=== PATIENT | male | born 1930 | race Caucasian/White ===

== ENCOUNTER 2016-09-02 13:25 | Observation (INO) | payer OTHER ==
[~2016-09-02] VITALS: Ht 182.9 cm; Wt 81.2 kg
[~2016-09-02 13:25] MED LIST: ALBUAER2 INH; AMOX875T3 PO; ASPI325T45 PO; CALC-20 PO; CMD4 PO; CRDCD180 PO; DIGO0.1267 PO; FINA5TAB PO; FISHOIL PO; LPR25 PO; MAGN400T6 PO; METR0.754 TOP; MISCCAP80 PO; MULT-506 PO; NTRSLP4 SL; NYSS5 PO; OMEP40CA PO; TIOTCAP INH
[2016-09-02 14:50] LABS: HEMATOCRIT 44.6 % (42-52); MEAN CELL VOLUME 85.3 fL (80-100); MEAN CORPUSCULAR HEMOGLOBIN 28.7 pg (25-34); MEAN CORPUSCULAR HGB CONC 33.6 g/dl (32-36); MEAN PLATELET VOLUME 10.4 fL (7.4-10.4); PLATELET COUNT 163 K/uL (130-400); RED BLOOD COUNT 5.23 M/uL (4.7-6.1); WHITE BLOOD COUNT 6.16 K/uL (4.8-10.8)
[2016-09-02 14:57] LABS: INR 3.3 (0.9-1.1); PROTHROMBIN TIME (PATIENT) 36.6 SECONDS (9.0-12.0)
[2016-09-02 15:21] LABS: CALCIUM 9.4 mg/dl (8.5-10.1); CREATININE 1.1 mg/dl (0.60-1.40); POTASSIUM 4.6 mmol/L (3.5-5.1)
--- NOTE | 2016-09-02 15:21 | DIAGNOSTIC IMAGING REPORT ---
LEFT FINGER(S) MIN 2 VIEWS ROUTINE CLINICAL HISTORY: fall 3rd can't extend DIP jt pain COMPARISON: None. DISCUSSION: Cortical fracture base distal phalanx. Potential small cortical fracture dorsal aspect distal aspect middle phalanx moderate soft tissue edema IMPRESSION: Cortical fracture base distal phalanx as well as the distal aspect middle phalanx. Alignment is anatomic The above report was generated using voice recognition software. It may contain grammatical, syntax or spelling errors. Electronically signed by: Romeo Thompson M.D. 09/02/2016 3:20 PM Dictated Date/Time: 09/02/2016 3:19 PM
[2016-09-02] MEDS ORDERED: OXYCODONE/ACETAMINOPHEN 5-325 TAB PO ONE (15:30)
--- NOTE | 2016-09-02 15:32 | DIAGNOSTIC IMAGING REPORT ---
AP PELVIS AND RIGHT HIP 3 VIEWS CLINICAL HISTORY: Right hip pain status post trauma COMPARISON STUDY: No previous studies for comparison. FINDINGS: There are advanced degenerative changes in the lower lumbar spine. There are extensive arterial calcifications. No acute fractures or dislocations are visualized. IMPRESSION: No fractures identified on conventional radiographic imaging Electronically signed by: Tonio Perez M.D. 09/02/2016 3:30 PM Dictated Date/Time: 09/02/2016 3:29 PM
--- NOTE | 2016-09-02 15:33 | DIAGNOSTIC IMAGING REPORT ---
RIGHT RIBS UNILATERAL WITH PA CHEST CLINICAL HISTORY: Right rib pain status post trauma COMPARISON STUDY: Chest x-ray dated 11/01/2015 FINDINGS: The erect chest reveals no pneumothorax. There is no focal pulmonary consolidation. There is underlying chronic interstitial change. There is a nondisplaced right ninth rib fracture. IMPRESSION: Acute nondisplaced right ninth rib fracture. No evidence of pneumothorax. Electronically signed by: Tonio Perez M.D. 09/02/2016 3:32 PM Dictated Date/Time: 09/02/2016 3:30 PM
[2016-09-02] MEDS ORDERED: WARF5TAB7 PO (15:34)
[2016-09-02] MEDS ORDERED: WARF3TAB6 PO (15:34)
[2016-09-02] MEDS ORDERED: METO25TA56 PO (15:34)
[2016-09-02] MEDS ORDERED: WARF10TA4 PO (15:34)
--- NOTE | 2016-09-02 16:40 | EMERGENCY ROOM VISIT NOTE ---
History Report prepared by Mj: Adelfo Hernandez Under the Supervision of: Dr. Howard Richards M.D. First contact with patient: 13:54 Chief Complaint: FALL Stated Complaint: FALL History of Present Illness The patient is a 85 year old male who presents to the Emergency Room via ALS with complaints of persistent right hip pain secondary to a fall occurring about an hour ago. He had been working outside for about 2 hours in the yard. While walking inside the house, he lost his balance and fell onto a chair. He states that his right leg would not move. He normally uses a cane to ambulate. He also complains of right sided rib pain and left third finger pain. He is unable to straighten his finger as normal. He has a bruise on the right hip. The patient rates a pain intensity of 5/10. He denies hitting his head. The patient denies loss of consciousness, dizziness, or any other complaints. 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 Source of History: patient Onset: about an hour ago Position: other (right hip) Symptom Intensity: 5/10 Timing: other (persistent) Associated Symptoms: No LOC Review of Systems All systems have been listed, reviewed, and are negative other than those previously mentioned. Please see Additional Medical History Sheet. 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 (13) Syncope and collapse Family History FH: cancer FHx: lung disease Heart disease Hypertension Social History Smoking Status: Former Smoker Alcohol Use: none Drug Use: none Marital Status: Housing Status: lives with family Occupation Status: retired Current/Historical Medications Scheduled Aspirin (Aspirin), 325 MG PO DAILY Calcium Carbonate-Vitamin D (Calcium 600 + D), 1 TAB PO DAILY Digoxin (Lanoxin), 0.125 MG PO DAILY Diltiazem HCl (Diltiazem HCl ER), 360 MG PO QAM Finasteride (Proscar), 5 MG PO QPM Fish Oil ([place]-3), 1,200 MG PO QPM Magnesium Oxide (Mag-Ox), 400 MG PO BID Metoprolol Tartrate (Lopressor) (Lopressor), 12.5 MG PO BID Multivitamin (Multivitamin), 1 TAB PO DAILY Omeprazole (Prilosec), 40 MG PO DAILY Probiotic Product (Probiotic), 1 CAP PO QPM Tiotropium [place] (Spiriva Handihaler), 1 CAP INH DAILY Warfarin Sod (Jantoven), 3 MG PO DIRECTED Warfarin Sod (Jantoven), 5 MG PO DIRECTED Warfarin Sod (Jantoven), 10 MG PO DIRECTED Scheduled PRN Albuterol (Ventolin), 2 PUFFS INH Q4-6HRS PRN for COPD Nitroglycerin (Nitrostat), 0.4 MG SL UD PRN for Chest Pain Allergies Coded Allergies: Clonidine (Verified Allergy, Mild, 09/02/16) Felodipine (Verified Allergy, Mild, 09/02/16) Physical Exam Vital Signs Date Time Temp Pulse Resp B/P (MAP) Pulse Ox O2 Delivery O2 Flow Rate FiO2 09/02/16 19:04 91 18 131/87 96 Room Air 09/02/16 17:22 81 18 140/77 93 Room Air 09/02/16 16:13 81 18 140/75 93 Room Air 09/02/16 15:41 85 18 134/73 94 Room Air 09/02/16 13:30 36.8 76 18 128/74 92 Room Air Physical Exam GENERAL: Patient awake, alert, oriented x 3. Patient follows commands. Patient does not appear toxic. Patient is adequately hydrated and well- nourished. SKIN: No erythema, pallor, cyanosis or rash HEENT: Normal head, no montana's sign or raccoon eyes. pupils equal, reactive to light and accommodation. Ears normal. Bilateral hearing aids. Oral cavity and posterior pharynx appear normal. Dry mucous membranes. Neck: Without adenopathy , no neck vein distention. CHEST: Tenderness over the left anterior lower ribs. LUNGS: Clear to auscultation. No wheezes, no rales, no rhonchi. HEART: Irregularly irregular rhythm. No murmurs. No gallops. No rubs ABDOMEN: Soft, nontender. PELVIS: Negative to pelvic rock. Fist sized swelling of the right greater trochanter with a small ecchymotic area overlying that swelling. Patient has full range of motion of both hips. EXTREMITIES: No signs of trauma. No pedal or pretibial edema. No calf or thigh tenderness. Brace on the right lower leg. Left third finger is unable to extend at the DIP joint. NEUROLOGIC: Cranial nerves II-XII within normal limits. No gross motor sensory function deficits. Medical Decision & Procedures ER Provider Diagnostic Interpretation: X ray results are stated below per my interpretation and the radiologist's interpretation. LEFT FINGER(S) MIN 2 VIEWS ROUTINE CLINICAL HISTORY: fall 3rd can't extend DIP jt pain COMPARISON: None. DISCUSSION: Cortical fracture base distal phalanx. Potential small cortical fracture dorsal aspect distal aspect middle phalanx moderate soft tissue edema IMPRESSION: Cortical fracture base distal phalanx as well as the distal aspect middle phalanx. Alignment is anatomic The above report was generated using voice recognition software. It may contain grammatical, syntax or spelling errors. Electronically signed by: Romeo Thompson M.D. 09/02/2016 3:20 PM Dictated Date/Time: 09/02/2016 3:19 PM AP PELVIS AND RIGHT HIP 3 VIEWS CLINICAL HISTORY: Right hip pain status post trauma COMPARISON STUDY: No previous studies for comparison. FINDINGS: There are advanced degenerative changes in the lower lumbar spine. There are extensive arterial calcifications. No acute fractures or dislocations are visualized. IMPRESSION: No fractures identified on conventional radiographic imaging Electronically signed by: Tonio Perez M.D. 09/02/2016 3:30 PM Dictated Date/Time: 09/02/2016 3:29 PM RIGHT RIBS UNILATERAL WITH PA CHEST CLINICAL HISTORY: Right rib pain status post trauma COMPARISON STUDY: Chest x-ray dated 11/01/2015 FINDINGS: The erect chest reveals no pneumothorax. There is no focal pulmonary consolidation. There is underlying chronic interstitial change. There is a nondisplaced right ninth rib fracture. IMPRESSION: Acute nondisplaced right ninth rib fracture. No evidence of pneumothorax. Electronically signed by: Tonio Perez M.D. 09/02/2016 3:32 PM Dictated Date/Time: 09/02/2016 3:30 PM Laboratory Results 09/02/16 14:10 09/02/16 14:10 Test 09/02/16 14:10 Red Blood Count 5.23 M/uL (4.7-6.1) Mean Corpuscular Volume 85.3 fL (80-100) Mean Corpuscular Hemoglobin 28.7 pg (25-34) Mean Corpuscular Hemoglobin Concent 33.6 g/dl (32-36) RDW Standard Deviation 44.4 fL (36.4-46.3) RDW Coefficient of Variation 14.3 % (11.5-14.5) Mean Platelet Volume 10.4 fL (7.4-10.4) Prothrombin Time 36.6 SECONDS (9.0-12.0) Prothromb Time International Ratio 3.3 (0.9-1.1) Anion Gap 9.0 mmol/L (3-11) Est Creatinine Clear Calc Drug Dose 51.6 ml/min Estimated GFR () 71.1 Estimated GFR (Non- 61.3 BUN/Creatinine Ratio 19.0 (10-20) Calcium Level 9.4 mg/dl (8.5-10.1) Chemistry Specimen Hemolysis Digoxin Level 0.6 ng/ml (0.8-2.0) Laboratory results as stated above per my review. Medications Administered Medications (Trade) Dose Ordered Sig/Anton Route Start Time Stop Time Status Last Admin Dose Admin Oxycodone/ Acetaminophen (Percocet 5-325mg Tab) 1 tab NOW ONCE PO 09/02/16 15:30 09/02/16 15:32 DC 09/02/16 15:40 1 TAB ECG Indication: other (Fall) Rate (beats per minute): 77 Rhythm: atrial fibrillation Findings: RBBB, left axis deviation ED Course 1354: Past medical records reviewed. The patient was evaluated in room B09. A complete history and physical examination was performed. 1530: Oxycodone/Acetaminophen 1 tab PO 1634: Upon reevaluation, the patient appeared to have improvement of his symptoms. I discussed today's findings with him. He verbalized agreement of the treatment plan. He was discharged home. 1732: I discussed the patient's case with the Emergency Room nurse. Patient is unable to ambulate. 1856: Upon reevaluation, the patient is resting comfortably.I discussed today's findings with him. He verbalized agreement of the treatment plan. [facility] for further management. Medical Decision Medication Reconciliation: I attest that I have personally reviewed the patient' s current medication list. Blood pressure Screening: Patient was found to have normal blood pressure on screening and does not require follow up. Differential diagnosis includes but is not limited to fall, near syncope, arrhythmia, metabolic disorder, multiple contusions/fractures/dislocations. The patient fell resulting in multiple contusions. He has a large swollen area over his right hip much of which looks old. There is no underlying fracture. The patient has a fracture of his left index finger both middle phalanx and distal phalanges resulting in lack of extension of the distal phalanx. Patient also has a right ninth rib fracture. The patient does not appear to have head or neck injury. Labs were also evaluated. His INR is elevated. After the full evaluation the patient was asked to ambulate but was unable to despite help. The patient normally has some difficulty due to the splint on his right lower leg and a past stroke. He now has pain in the right hip and a fracture of the left hand. He also has a ninth rib fracture. The patient is currently not eligible for [facility] but may be eligible in the near future. I've spoken with the hospitalist who will evaluate the patient for observation here. Consults Time Called: 1849 Consulting Physician: Dr. Boston of the [facility] Hospitalist Service Returned Call: [phone] [facility] the [facility] for further management. Impression Primary Impression: Right rib fracture Additional Impressions: Contusion of right hip Fracture of phalanx of left index finger Fall Ambulatory dysfunction Atrial fibrillation Scribe Attestation The scribe's documentation has been prepared under my direction and personally reviewed by me in its entirety. I confirm that the note above accurately reflects all work, treatment, procedures, and medical decision making performed by me. Departure Information Dispostion Being Evaluated By Hospitalist Referrals Mike West M.D. (PCP) Forms HOME CARE DOCUMENTATION FORM, IMPORTANT VISIT INFORMATION Patient Instructions My [facility] Problem Qualifiers
[2016-09-02] MEDS ORDERED: ALUMINUM/MAGNESIUM/SIMETH (MAALOX MAX) 30 ML UDC PO PRN (20:00)
[2016-09-02] MEDS ORDERED: ACETAMINOPHEN 325 MG TAB PO PRN (20:00)
[2016-09-02] MEDS ORDERED: ONDANSETRON INJ 2 MG/ML 2 ML VIAL IV PRN (20:00)
[2016-09-02] MEDS ORDERED: MAGNESIUM HYDROXIDE SUSP 30 ML UDC PO PRN (20:00)
[2016-09-02] MEDS ORDERED: ALBUTEROL 0.083% NEBU SOLN 3 ML VIAL INH PRN (20:00)
[2016-09-02] MEDS ORDERED: POLYETHYLENE (MIRALAX) 17 GM PACK PO PRN (20:15)
--- NOTE | 2016-09-02 20:18 | History and Physical ---
History & Physical Date & Time of Service: Sep 02, 2016 at 19:55 Chief Complaint: FALL Primary Care Physician: Mike West M.D. History of Present Illness Source: patient 85 y/o M Hx HTN, COPD, chronic AF, CVA with residual R sided weakness - was working in yard and fell on his R side sustaining a R index finger and R 9th rib fracture. He is also c/o pain in his R hip. He initially wanted to be discharged from the ER however, he was unable to ambulate and will be admitted for transfer to rehab. He denies symptoms preceding his fall such as SOB, lightheadedness, CP, palpitations. He takes Coumadin daily and has an INR of 3.3 on admission. He did not sustain head trauma and there is mo evidence of significant bruising at present. Past Medical/Surgical History Medical Problems: (1) Acquired trigger finger Status: Resolved (2) Benign hypertension Status: Chronic (3) Cataract Status: Resolved (4) Hernia repair Status: Resolved (5) Parathyroidectomy Status: Resolved (6) Pre-diabetes (7) CVA - R sided weakness (8) Pulmonary emphysema Status: Chronic (9) Replacement of total knee joint Status: Resolved 10) Chronic AF Family History FH: cancer FHx: lung disease Heart disease Hypertension Social History Smoking Status: Former Smoker Drug Use: none Marital Status: Housing status: lives with family Occupational Status: retired Immunizations History of Influenza Vaccine: Yes Influenza Vaccine Date: Jan 08, 2012 History of Tetanus Vaccine?: Yes Tetanus Immunization Date: July 13, 2001 History of Pneumococcal: Yes Pneumococcal Date: Sep 07, 2011 History of Hepatitis B Vaccine: Unknown Multi-Drug Resistant Organisms History of MDRO: No Allergies Coded Allergies: Clonidine (Verified Allergy, Mild, 09/02/16) Felodipine (Verified Allergy, Mild, 09/02/16) Home Medications Scheduled Aspirin (Aspirin), 325 MG PO DAILY Calcium Carbonate-Vitamin D (Calcium 600 + D), 1 TAB PO DAILY Digoxin (Lanoxin), 0.125 MG PO DAILY Diltiazem HCl (Diltiazem HCl ER), 360 MG PO QAM Finasteride (Proscar), 5 MG PO QPM Fish Oil ([place]-3), 1,200 MG PO QPM Magnesium Oxide (Mag-Ox), 400 MG PO BID Metoprolol Tartrate (Lopressor) (Lopressor), 12.5 MG PO BID Multivitamin (Multivitamin), 1 TAB PO DAILY Omeprazole (Prilosec), 40 MG PO DAILY Probiotic Product (Probiotic), 1 CAP PO QPM Tiotropium Romeo (Spiriva Handihaler), 1 CAP INH DAILY Warfarin Sod (Jantoven), 3 MG PO DIRECTED Warfarin Sod (Jantoven), 5 MG PO DIRECTED Warfarin Sod (Jantoven), 10 MG PO DIRECTED Scheduled PRN Albuterol (Ventolin), 2 PUFFS INH Q4-6HRS PRN for COPD Nitroglycerin (Nitrostat), 0.4 MG SL UD PRN for Chest Pain Review of Systems Constitutional: No fever, No chills, No sweats Eyes: No worsening of vision ENT: No hearing loss, No unusual epistaxis, No nasal symptoms Respiratory: No cough, No sputum, No wheezing Cardiovascular: No chest pain, No PND Abdomen: No pain, No nausea, No vomiting Musculoskeletal: No joint pain Genitourinary - Male: No hematuria, No dysuria Neurologic: + weakness (chronic R side), + balance problems, No memory loss, No paralysis Psychiatric: No depression symptoms Endocrine: No fatigue Hematologic / Lymphatic: No abnormal bleeding/bruising Integumentary: No rash Allergic / Immunologic: No environmental allergies Physical Exam Vital Signs Date Time Temp Pulse Resp B/P (MAP) Pulse Ox O2 Delivery O2 Flow Rate FiO2 09/02/16 19:04 91 18 131/87 96 Room Air 09/02/16 17:22 81 18 140/77 93 Room Air 09/02/16 16:13 81 18 140/75 93 Room Air 09/02/16 15:41 85 18 134/73 94 Room Air 09/02/16 13:30 36.8 76 18 128/74 92 Room Air General Appearance: WD/WN, no apparent distress, + pertinent finding (Thi elderly male - has some chronic difficulty initiating speech) Head: normocephalic Eyes: normal inspection ENT: normal ENT inspection, pharynx normal Neck: supple, no adenopathy, thyroid normal, no JVD Respiratory/Chest: chest non-tender, lungs clear Cardiovascular: no gallop, no JVD, no murmur, + irregularly irregular Abdomen/GI: normal bowel sounds, non tender, soft Back: normal inspection, no CVA tenderness, no muscle spasm Extremities/Musculoskelatal: + pedal edema (Mild ) Neurologic/Psych: + pertinent finding (CHronic R sided weakness - AAO x 3 - no additional/new deficits noted) Skin: normal color, warm/dry, no rash Diagnostics Laboratory Results Results Past 24 Hours Test 09/02/16 14:10 Range/Units White Blood Count 6.16 4.8-10.8 K/uL Red Blood Count 5.23 4.7-6.1 M/uL Hemoglobin 15.0 14.0-18.0 g/dL Hematocrit 44.6 42-52 % Mean Corpuscular Volume 85.3 80-100 fL Mean Corpuscular Hemoglobin 28.7 25-34 pg Mean Corpuscular Hemoglobin Concent 33.6 32-36 g/dl RDW Standard Deviation 44.4 36.4-46.3 fL RDW Coefficient of Variation 14.3 11.5-14.5 % Platelet Count 163 130-400 K/uL Mean Platelet Volume 10.4 7.4-10.4 fL Prothrombin Time 36.6 9.0-12.0 SECONDS Prothromb Time International Ratio 3.3 0.9-1.1 Sodium Level 140 136-145 mmol/L Potassium Level 4.6 3.5-5.1 mmol/L Chloride Level 104 98-107 mmol/L Carbon Dioxide Level 27 21-32 mmol/L Anion Gap 9.0 3-11 mmol/L Blood Urea Nitrogen 21 7-18 mg/dl Creatinine 1.10 0.60-1.40 mg/dl Est Creatinine Clear Calc Drug Dose 51.6 ml/min Estimated GFR () 71.1 Estimated GFR (Non- 61.3 BUN/Creatinine Ratio 19.0 10-20 Random Glucose 139 70-99 mg/dl Calcium Level 9.4 8.5-10.1 mg/dl Chemistry Specimen Hemolysis Digoxin Level 0.6 0.8-2.0 ng/ml Diagnostic Radiology CXR: Acute nondisplaced right ninth rib fracture. No evidence of pneumothorax. Finger XR: Cortical fracture base distal phalanx as well as the distal aspect middle phalanx. Alignment is anatomic. Pelvic XR: Lumbar degenerative disease - no fracture is visualized EKG AF, R bundle, L axis Impression Assessment and Plan 85 y/o M Hx HTN, COPD, chronic AF, CVA with residual R sided weakness - was working in yard and fell on his R side sustaining a R index finger and R 9th rib fracture. He is also c/o pain in his R hip. He initially wanted to be discharged from the ER however, he was unable to ambulate and will be admitted for transfer to rehab. He denies symptoms preceding his fall such as SOB, lightheadedness, CP, palpitations. He takes Coumadin daily and has an INR of 3.3 on admission. 1) Fall - ambulatory dysfunction - will be evaluated by PT/OT for transfer to rehab. If he continues to have hip pain and cannot weight bear onthe right side , a CT would be merited to evaluate for an occult fracture. 2) AF - INR is therapeutic at 3.3 - no evidence of hemorrhage at present - cont rate control with Toprol - resume Coumadin on DC. 3) RIb and index finger fractures - PRN analgesics provided. 4) COPD - no evidence of exacerbation - cont inhalers and PRN Albuterol nebs. Full code - Heparin prophylaxis Total time for this admit including review of labs, meds, EKG, imaging - discussion with pt and ER attending - 33 min Level of Care Med/Surg Resuscitation Status FULL RESUSCITATION VTE Prophylaxis VTE Risk Assessment Done? Y/N: Yes Risk Level: Moderate Given or contraindicated: Warfarin (Coumadin)
[2016-09-02] MEDS ORDERED: IV FLUIDS COMPLETED PRN (20:45)
[2016-09-02 20:58] VITALS: BP 152/76; PULSE 90; TEMP 36.5; O2SAT 94; Ht 182.9 cm; Wt 81.2 kg
[2016-09-02] MEDS ORDERED: MAGNESIUM SULFATE 1GM / D5W 1 GM in PREMIXED IN D5W 100 ML IV ONE (21:00)
[2016-09-02] MEDS ORDERED: NON-FORMULARY MEDICATION (Probiotic Product (Probiotic) 1 CAP) PO SCH (21:00)
[2016-09-02] MEDS: POTASSIUM CHLR 10 MEQ / WTR 10 MEQ in PREMIXED WATER 100 ML IV SCH ×2 (21:44→23:41)
[2016-09-02] MEDS: OMEGA-3 (PURIFIED FISH OIL) 1 GM CAP PO SCH (21:46)
[2016-09-02] MEDS: MAGNESIUM OXIDE 400 MG TAB PO SCH (21:46)
[2016-09-02] MEDS: FINASTERIDE 5 MG TAB PO SCH (21:47)
[2016-09-02] MEDS ORDERED: OXYCODONE HCL IR 5 MG TAB (IMMEDIATE RELEASE) ONE (21:54)
[2016-09-03 00:04] VITALS: BP 134/80; PULSE 87; TEMP 36.5; O2SAT 93
[2016-09-03] MEDS: OXYCODONE HCL IR 5 MG TAB (IMMEDIATE RELEASE) PO PRN ×3 (02:34→23:51)
[2016-09-03 05:56] LABS: INR 2.3 (0.9-1.1)
[2016-09-03] MEDS: TIOTROPIUM BROMIDE 5 PUFF/90 MCG INH INH SCH (08:12)
[2016-09-03] MEDS: CALCIUM 600MG + VIT D 400 IU TAB PO SCH (08:12)
[2016-09-03] MEDS: ASPIRIN 325 MG ECTAB PO SCH (08:13)
[2016-09-03] MEDS: PANTOprazole SOD 40 MG TAB PO SCH (08:13)
[2016-09-03] MEDS: MAGNESIUM OXIDE 400 MG TAB PO SCH ×2 (08:13→20:35)
[2016-09-03] MEDS: DILTIAZEM HCL 180 MG CAPCR PO SCH (08:13)
[2016-09-03] MEDS: MULTIVITAMIN TAB PO SCH (08:13)
[2016-09-03] MEDS: ACETAMINOPHEN 500 MG TAB PO SCH ×3 (09:40→22:31)
[2016-09-03] MEDS: LIDODERM (LIDOCAINE) PATCH 5% TD SCH (09:41)
--- NOTE | 2016-09-03 12:27 | DIAGNOSTIC IMAGING REPORT ---
RIGHT HIP-LOWER EXTREMITY WITHOUT CT DOSE: 243.29 mGy.cm HISTORY: Pain eval for occult fracture Right TECHNIQUE: Multiaxial CT images of the right hip were performed and reformatted in the sagittal and coronal plane without the use of contrast. COMPARISON: None. FINDINGS: Moderate generalized degenerative change of the right hip joint space. Slight acetabular protrusion. No evidence for acute fracture or dislocation. Considerable soft tissue swelling lateral to the right hip and other upper thigh. This appears to relate to a soft tissue contusion. Minimal calcific trochanteric sinuses. IMPRESSION: 1. No evidence for fracture. 2. Moderate degenerative change with mild calcific trochanteric bursitis. 3. Considerable soft tissue edema lateral to the right hip and proximal femur suggestive of a soft tissue contusion The above report was generated using voice recognition software. It may contain grammatical, syntax or spelling errors. Electronically signed by: Romeo Thompson M.D. 09/03/2016 12:26 PM Dictated Date/Time: 09/03/2016 12:22 PM
[2016-09-03 15:34] VITALS: BP 145/74; PULSE 91; TEMP 36.4; O2SAT 92
[2016-09-03 16:00] VITALS: O2SAT 92
[2016-09-03] MEDS: DIGOXIN 0.125 MG TAB PO SCH (16:42)
[2016-09-03] MEDS: OMEGA-3 (PURIFIED FISH OIL) 1 GM CAP PO SCH (20:37)
[2016-09-03] MEDS: FINASTERIDE 5 MG TAB PO SCH (20:37)
--- NOTE | 2016-09-04 00:10 | Progress Note ---
Subjective Date of Service: Sep 03, 2016. Subjective Pt evaluation today including: conversation w/ patient, conversation w/ family ( by phone), physical exam, chart review, lab review, review of studies (x- rays, CT right hip), review of inpatient medication list Pain: right chest and right hip (lateral aspect) PO Intake: normal Voiding: no voiding problems pt's main complaint is that of right hip pain he tried working with PT this am and it was very painful leading to significant limitation in his ability to move denies dyspnea denies chest pain he cannot recall his coumadin regimen at home Problem List Medical Problems: (1) Altered mental status Status: Acute (2) Altered mental status Status: Acute (3) Ambulatory dysfunction Status: Acute (4) Atrial fibrillation Status: Acute (5) Contusion of right hip Status: Acute (6) COPD exacerbation Status: Acute (7) Fall Status: Acute (8) Fall Status: Acute (9) Fracture of phalanx of left index finger Status: Acute (10) Heart failure Status: Acute (11) Hyponatremia Status: Acute (12) Hyponatremia Status: Acute (13) Hypoxemia Status: Acute (14) Hypoxia Status: Acute (15) Pneumonia Status: Acute (16) Right rib fracture Status: Acute Review of Systems Respiratory: No cough, No sputum, No wheezing, No shortness of breath Cardiac: No chest pain, No orthopnea Abdomen: No pain Objective Vital Signs Date Time Temp Pulse Resp B/P (MAP) Pulse Ox O2 Delivery O2 Flow Rate FiO2 09/03/16 16:42 87 09/03/16 16:00 92 Room Air 09/03/16 15:34 36.4 91 19 145/74 (97) 92 Room Air 09/03/16 09:21 Room Air 09/03/16 08:00 Room Air 09/03/16 00:04 36.5 87 18 134/80 (98) 93 Room Air 09/03/16 00:00 Room Air Physical Exam General Appearance: no apparent distress ENT: pharynx normal Neck: no JVD Respiratory/Chest: no respiratory distress, no accessory muscle use, + wheezing (mild, end-exp b/l) Cardiovascular: no gallop, no murmur, + irregularly irregular Abdomen: normal bowel sounds, non tender, soft, no organomegaly Extremities: no pedal edema, + swelling (over lateral aspect of upper thigh/ hip - hematoma; very tender over trochanteric bursal area; with passive flexion and internal/external rotation of hip he has minimal pain), + pertinent finding (left 3rd finger in splint) Laboratory Results Last 24 Hours Test 09/03/16 05:22 Prothrombin Time 25.0 SECONDS Prothromb Time International Ratio 2.3 Assessment and Plan 85yo male: 1. right hip pain s/p fall - has lateral thigh hematoma due to his fall and his coumadin use. Due to the severity of his pain CT hip was obtained - this did NOT show occult fracture. Treat hematoma with tylenol TID, ice, pain meds. PT, OT. May have element of trochanteric bursitis as well. 2. left 3rd finger fracture - splint, nonoperative Rx. 3. right sided rib fracture - add lidoderm patches. Pain control. 4. a. fib - rates controlled; hold coumadin today due to hematoma. If hematoma is stable tomorrow then resume coumadin. INR in am. 5. COPD - stable, not in exacerbation. 6. DVT proph - coumadin. 7. dispo - [facility] if insurance approves. 8. HTN - controlled. 9. h/o stroke with resulting right-sided weakness - coumadin for secondary stroke prevention. baseline deficits on right likely led to his fall. updated by phone Continued [facility] stay due to: inadequate oral pain control, ambulation difficulties Discharge planning: rehab hospital
[2016-09-04 00:12] VITALS: BP 133/71; PULSE 90; TEMP 37.1; O2SAT 92
[2016-09-04] MEDS: OXYCODONE HCL IR 5 MG TAB (IMMEDIATE RELEASE) PO PRN (03:32)
[2016-09-04 06:19] LABS: HEMATOCRIT 39.9 % (42-52); MEAN CELL VOLUME 84.9 fL (80-100); MEAN CORPUSCULAR HEMOGLOBIN 27.7 pg (25-34); MEAN CORPUSCULAR HGB CONC 32.6 g/dl (32-36); MEAN PLATELET VOLUME 10.4 fL (7.4-10.4); PLATELET COUNT 159 K/uL (130-400); WHITE BLOOD COUNT 14.83 K/uL (4.8-10.8)
[2016-09-04 06:43] LABS: INR 1.8 (0.9-1.1); PROTHROMBIN TIME (PATIENT) 19.2 SECONDS (9.0-12.0)
[2016-09-04] MEDS: MAGNESIUM OXIDE 400 MG TAB PO SCH ×2 (07:50→21:12)
[2016-09-04] MEDS: ACETAMINOPHEN 500 MG TAB PO SCH ×3 (07:50→22:33)
[2016-09-04] MEDS: CALCIUM 600MG + VIT D 400 IU TAB PO SCH (07:51)
[2016-09-04] MEDS: MULTIVITAMIN TAB PO SCH (07:51)
[2016-09-04] MEDS: DILTIAZEM HCL 180 MG CAPCR PO SCH (07:51)
[2016-09-04] MEDS: ASPIRIN 325 MG ECTAB PO SCH (07:52)
[2016-09-04] MEDS: PANTOprazole SOD 40 MG TAB PO SCH (07:52)
[2016-09-04] MEDS: TIOTROPIUM BROMIDE 5 PUFF/90 MCG INH INH SCH (07:52)
[2016-09-04] MEDS: LIDODERM (LIDOCAINE) PATCH 5% TD SCH (07:56)
[2016-09-04 07:57] VITALS: BP 137/70; PULSE 101; TEMP 37.1; O2SAT 91
[2016-09-04] MEDS ORDERED: WARFARIN SOD 10 MG TAB PO ONE (10:30)
[2016-09-04 14:01] VITALS: BP 135/57; PULSE 95; O2SAT 90
[2016-09-04] MEDS: DIGOXIN 0.125 MG TAB PO SCH (15:35)
[2016-09-04 15:57] VITALS: BP 120/60; PULSE 98; TEMP 36.4; O2SAT 91
[2016-09-04] MEDS: TRAMADOL HCL 50 MG TAB PO PRN (18:26)
[2016-09-04 18:30] LABS: MANUAL MICROSCOPIC REQUIRED? NO; REVIEW REQ? NO; URINE APPEARANCE CLOUDY (CLEAR); URINE BILIRUBIN NEG (NEG); URINE COLOR ORANGE; URINE NITRITE POS (NEG); URINE SPECIFIC GRAVITY 1.031 (1.000-1.030); UROBILINOGEN NEG (NEG)
[2016-09-04] MEDS: OMEGA-3 (PURIFIED FISH OIL) 1 GM CAP PO SCH (21:11)
[2016-09-04] MEDS: FINASTERIDE 5 MG TAB PO SCH (21:12)
--- NOTE | 2016-09-04 21:12 | Progress Note ---
Subjective Date of Service: Sep 04, 2016. Subjective Pt evaluation today including: conversation w/ patient, physical exam, chart review, lab review, review of inpatient medication list Pain: right hip - improved; right ribs - improved PO Intake: fair Voiding: no voiding problems tele with michael chau, rates about 105 or less he overall feels better today apparently had had some confusion overnight but this is resolved pain in multiple locations overall improved anxious to get to [facility] Problem List Medical Problems: (1) Altered mental status Status: Acute (2) Altered mental status Status: Acute (3) Ambulatory dysfunction Status: Acute (4) Atrial fibrillation Status: Acute (5) Contusion of right hip Status: Acute (6) COPD exacerbation Status: Acute (7) Fall Status: Acute (8) Fall Status: Acute (9) Fracture of phalanx of left index finger Status: Acute (10) Heart failure Status: Acute (11) Hyponatremia Status: Acute (12) Hyponatremia Status: Acute (13) Hypoxemia Status: Acute (14) Hypoxia Status: Acute (15) Pneumonia Status: Acute (16) Right rib fracture Status: Acute Review of Systems Constitutional: No fever, No chills Respiratory: + cough, No sputum, No wheezing, No shortness of breath, No dyspnea on exertion Cardiac: No chest pain, No orthopnea Abdomen: No pain Objective Vital Signs Date Time Temp Pulse Resp B/P (MAP) Pulse Ox O2 Delivery O2 Flow Rate FiO2 09/04/16 16:00 Room Air 09/04/16 15:57 36.4 98 18 120/60 (80) 91 Room Air 09/04/16 15:35 89 09/04/16 14:01 95 90 09/04/16 08:00 Room Air 09/04/16 07:57 37.1 101 20 137/70 (92) 91 Room Air 09/04/16 00:12 37.1 90 18 133/71 (91) 92 Room Air 09/04/16 00:00 Room Air Physical Exam General Appearance: no apparent distress ENT: pharynx normal Neck: no JVD Respiratory/Chest: no respiratory distress, no accessory muscle use, + wheezing (minimal) Cardiovascular: no gallop, no murmur, + irregularly irregular Abdomen: normal bowel sounds, non tender, soft, no organomegaly Extremities: no pedal edema, + pertinent finding (I am able to passively place the right hip through ROM today with more ease and less pain. ) Neurologic/Psychiatric: alert, oriented x 3, + motor weakness (right leg - baseline) Skin: + pertinent finding (ecchymoses over lateral right hip; mild tenderness over same region but improved) Comments: left 3rd finger in splint Laboratory Results Last 24 Hours Test 09/04/16 06:02 09/04/16 18:15 White Blood Count 14.83 K/uL Red Blood Count 4.70 M/uL Hemoglobin 13.0 g/dL Hematocrit 39.9 % Mean Corpuscular Volume 84.9 fL Mean Corpuscular Hemoglobin 27.7 pg Mean Corpuscular Hemoglobin Concent 32.6 g/dl RDW Standard Deviation 44.7 fL RDW Coefficient of Variation 14.4 % Platelet Count 159 K/uL Mean Platelet Volume 10.4 fL Prothrombin Time 19.2 SECONDS Prothromb Time International Ratio 1.8 Urine Color ORANGE Urine Appearance CLOUDY Urine pH 5.0 Urine Specific [place] 1.031 Urine Protein NEG Urine Glucose (UA) NEG Urine Ketones TRACE Urine Occult Blood NEG Urine Nitrite POS Urine Bilirubin NEG Urine Urobilinogen NEG Urine Leukocyte Esterase TRACE Urine WBC (Auto) 1-5 /hpf Urine RBC (Auto) 0-4 /hpf Urine Hyaline Casts (Auto) 5-10 /lpf Urine Epithelial Cells (Auto) 10-20 /lpf Urine Bacteria (Auto) NEG Assessment and Plan 85yo male: 1. right hip pain s/p fall - no fractures on x-ray or CT. small hematoma on outer aspect of the hip is improved today. resume coumadin. may have small amount of trochanteric bursitis as well. cont ICE, lidoderm, tramadol prn. 2. left 3rd finger fracture - splint, nonoperative Rx. 3. right sided rib fracture - lidoderm patches. Pain control. 4. a. fib - rates controlled; resume coumadin today with 10mg po x 1. then resume previous outpatient regimen which was - * 8mg ///Friday * 10mg //Friday * daily INR 5. COPD - stable, not in exacerbation. Surprised he is not on daily maintenance medication. Add advair 250/50 1 puff BID starting in AM. Albuterol prn. 6. DVT proph - coumadin. 7. HTN - controlled. 8. h/o stroke with resulting right-sided weakness - coumadin for secondary stroke prevention. baseline deficits on right likely led to his fall. 9. leukocytosis - cause? check u/a and urine cx, r/o UTI. cxr yesterday without infiltrates. repeat CBC in am. 10. constipation - miralax BID. [facility] hopefully can [facility]/c tomorrow updated by phone 09/03/16 Continued [facility] stay due to: inadequate oral pain control, ambulation difficulties Discharge planning: rehab hospital
[2016-09-04] MEDS: POLYETHYLENE (MIRALAX) 17 GM PACK PO SCH (22:30)
[2016-09-05] VITALS: O2SAT 90
[2016-09-05 00:03] VITALS: BP 118/73; PULSE 87; TEMP 36.5; O2SAT 92
[2016-09-05 05:44] LABS: BASO % 0.1 %; BASO ABS # 0.01 K/uL (0-0.2); COMPLETE YES; EOS % 1.1 %; HEMATOCRIT 33.7 % (42-52); IG% 0.2 %; LYMPH % 18.9 %; LYMPH ABS # 1.67 K/uL (1.2-3.4); MEAN CELL VOLUME 84.3 fL (80-100); MEAN CORPUSCULAR HEMOGLOBIN 28.8 pg (25-34); MEAN CORPUSCULAR HGB CONC 34.1 g/dl (32-36); MEAN PLATELET VOLUME 10.4 fL (7.4-10.4); MONO % 9.9 %; NEUT % 69.8 %; PLATELET COUNT 150 K/uL (130-400); WHITE BLOOD COUNT 8.85 K/uL (4.8-10.8)
[2016-09-05] MEDS: ACETAMINOPHEN 500 MG TAB PO SCH ×3 (05:49→22:00)
[2016-09-05 05:52] LABS: INR 1.4 (0.9-1.1); PROTHROMBIN TIME (PATIENT) 15.3 SECONDS (9.0-12.0)
[2016-09-05 06:17] LABS: BUN/CREATININE RATIO 25.1 (10-20); CALCIUM 8.7 mg/dl (8.5-10.1); CREATININE 0.76 mg/dl (0.60-1.40); MAGNESIUM 1.8 mg/dl (1.8-2.4); POTASSIUM 3.9 mmol/L (3.5-5.1)
[2016-09-05] MEDS: POLYETHYLENE (MIRALAX) 17 GM PACK PO SCH ×2 (07:54→21:44)
[2016-09-05] MEDS: FLUTICASONE/SALMETEROL 250/50 (ADVAIR) 14 PUFF/1 INHALER INH SCH ×2 (07:55→21:43)
[2016-09-05] MEDS: TIOTROPIUM BROMIDE 5 PUFF/90 MCG INH INH SCH (07:56)
[2016-09-05] MEDS: LIDODERM (LIDOCAINE) PATCH 5% TD SCH (07:56)
[2016-09-05] MEDS: MAGNESIUM OXIDE 400 MG TAB PO SCH ×2 (07:56→21:44)
[2016-09-05] MEDS: DILTIAZEM HCL 180 MG CAPCR PO SCH (07:56)
[2016-09-05] MEDS: CALCIUM 600MG + VIT D 400 IU TAB PO SCH (07:56)
[2016-09-05] MEDS: PANTOprazole SOD 40 MG TAB PO SCH (07:57)
[2016-09-05] MEDS: MULTIVITAMIN TAB PO SCH (07:57)
[2016-09-05] MEDS: ASPIRIN 325 MG ECTAB PO SCH (07:57)
[2016-09-05 08:00] VITALS: BP 132/64; PULSE 86; TEMP 36.7; O2SAT 90
[2016-09-05 15:09] VITALS: BP 111/67; PULSE 72; TEMP 36.5; O2SAT 92
[2016-09-05] MEDS ORDERED: WARFARIN SOD 5 MG TAB PO SCH (16:00)
[2016-09-05 16:05] VITALS: PULSE 80; O2SAT 92
[2016-09-05] MEDS: DIGOXIN 0.125 MG TAB PO SCH (16:06)
--- NOTE | 2016-09-05 16:54 | Progress Note ---
Subjective Date of Service: Sep 05, 2016. Subjective this pt is near his baseline awaiting placement denied rehab placement and will move to subacute. is at bedside and updated Problem List Medical Problems: (1) Altered mental status Status: Acute (2) Altered mental status Status: Acute (3) Ambulatory dysfunction Status: Acute (4) Atrial fibrillation Status: Acute (5) Contusion of right hip Status: Acute (6) COPD exacerbation Status: Acute (7) Fall Status: Acute (8) Fall Status: Acute (9) Fracture of phalanx of left index finger Status: Acute (10) Heart failure Status: Acute (11) Hyponatremia Status: Acute (12) Hyponatremia Status: Acute (13) Hypoxemia Status: Acute (14) Hypoxia Status: Acute (15) Pneumonia Status: Acute (16) Right rib fracture Status: Acute Review of Systems Constitutional: No fever, No chills, No weakness Respiratory: No cough, No wheezing, No shortness of breath Cardiac: No chest pain, No orthopnea, No edema Abdomen: No pain, No nausea, No vomiting, No diarrhea Musculoskeletal: + joint pain, + muscle pain Male : No dysuria, No urinary frequency Neurologic: + paralysis, + weakness, + balance problems, No memory loss Psychiatric: No depression symptoms, No anxiety Objective Vital Signs Date Time Temp Pulse Resp B/P (MAP) Pulse Ox O2 Delivery O2 Flow Rate FiO2 09/05/16 08:00 36.7 86 18 132/64 (86) 90 Room Air 09/05/16 00:03 36.5 87 18 118/73 (88) 92 Room Air 09/05/16 00:00 90 Room Air 09/04/16 16:00 Room Air 09/04/16 15:57 36.4 98 18 120/60 (80) 91 Room Air 09/04/16 15:35 89 09/04/16 14:01 95 90 Physical Exam General Appearance: WD/WN, + mild distress Eyes: PERRL, EOMI Neck: supple, no JVD Respiratory/Chest: chest non-tender, lungs clear Cardiovascular: regular rate, rhythm, + systolic murmur Abdomen: normal bowel sounds, soft Extremities: no pedal edema, no calf tenderness, + pertinent finding (right foot drop) Neurologic/Psychiatric: alert, oriented x 3 Laboratory Results Last 24 Hours Test 09/04/16 18:15 09/05/16 05:18 Urine Color ORANGE Urine Appearance CLOUDY Urine pH 5.0 Urine Specific [place] 1.031 Urine Protein NEG Urine Glucose (UA) NEG Urine Ketones TRACE Urine Occult Blood NEG Urine Nitrite POS Urine Bilirubin NEG Urine Urobilinogen NEG Urine Leukocyte Esterase TRACE Urine WBC (Auto) 1-5 /hpf Urine RBC (Auto) 0-4 /hpf Urine Hyaline Casts (Auto) 5-10 /lpf Urine Epithelial Cells (Auto) 10-20 /lpf Urine Bacteria (Auto) NEG White Blood Count 8.85 K/uL Red Blood Count 4.00 M/uL Hemoglobin 11.5 g/dL Hematocrit 33.7 % Mean Corpuscular Volume 84.3 fL Mean Corpuscular Hemoglobin 28.8 pg Mean Corpuscular Hemoglobin Concent 34.1 g/dl Platelet Count 150 K/uL Mean Platelet Volume 10.4 fL Neutrophils (%) (Auto) 69.8 % Lymphocytes (%) (Auto) 18.9 % Monocytes (%) (Auto) 9.9 % Eosinophils (%) (Auto) 1.1 % Basophils (%) (Auto) 0.1 % Neutrophils # (Auto) 6.17 K/uL Lymphocytes # (Auto) 1.67 K/uL Monocytes # (Auto) 0.88 K/uL Eosinophils # (Auto) 0.10 K/uL Basophils # (Auto) 0.01 K/uL RDW Standard Deviation 44.2 fL RDW Coefficient of Variation 14.3 % Immature Granulocyte % (Auto) 0.2 % Immature Granulocyte # (Auto) 0.02 K/uL Prothrombin Time 15.3 SECONDS Prothromb Time International Ratio 1.4 Sodium Level 137 mmol/L Potassium Level 3.9 mmol/L Chloride Level 101 mmol/L Carbon Dioxide Level 29 mmol/L Anion Gap 7.0 mmol/L Blood Urea Nitrogen 19 mg/dl Creatinine 0.76 mg/dl Est Creatinine Clear Calc Drug Dose 79.4 ml/min Estimated GFR () 97.1 Estimated GFR (Non- 83.8 BUN/Creatinine Ratio 25.1 Random Glucose 147 mg/dl Calcium Level 8.7 mg/dl Magnesium Level 1.8 mg/dl Assessment and Plan 85yo male fall with hip pain, finger laceration and stable afib/copd right hip pain s/p fall - no fractures on x-ray or CT. small hematoma on outer aspect of the hip resume coumadin. cont ICE, lidoderm, tramadol prn. left 3rd finger fracture - splint, nonoperative Rx. right sided rib fracture - lidoderm patches. Pain control. a. fib - rates controlled; resume coumadin 09/04 with usual dose 09/05 * 8mg ///Friday * 10mg //Friday * daily INR COPD - stable, advair 250/50 1 puff BID starting in AM. Albuterol prn. DVT proph - coumadin. h/o stroke with resulting right-sided weakness - coumadin for secondary stroke prevention. baseline deficits on right likely led to his fall. constipation - miralax BID. awaiting insurance auth for [facility] - updated by phone 09/03/16 Continued [facility] stay due to: inadequate oral pain control, ambulation difficulties Discharge planning: rehab hospital
[2016-09-05] MEDS: FINASTERIDE 5 MG TAB PO SCH (21:44)
[2016-09-05] MEDS: OMEGA-3 (PURIFIED FISH OIL) 1 GM CAP PO SCH (21:45)
[2016-09-05] MEDS: TRAMADOL HCL 50 MG TAB PO PRN (21:54)
[2016-09-05 23:08] VITALS: BP 124/70; PULSE 82; TEMP 36.7; O2SAT 90
[2016-09-06] MEDS ORDERED: TRAMADOL HCL 50 MG TAB PO STA (02:44)
[2016-09-06] MEDS: ACETAMINOPHEN 500 MG TAB PO SCH ×2 (06:08→14:15)
[2016-09-06 06:59] VITALS: BP 114/62; PULSE 90; TEMP 36.7; O2SAT 91
[2016-09-06] MEDS: ASPIRIN 325 MG ECTAB PO SCH (07:56)
[2016-09-06] MEDS: TIOTROPIUM BROMIDE 5 PUFF/90 MCG INH INH SCH (07:56)
[2016-09-06] MEDS: FLUTICASONE/SALMETEROL 250/50 (ADVAIR) 14 PUFF/1 INHALER INH SCH (07:56)
[2016-09-06] MEDS: PANTOprazole SOD 40 MG TAB PO SCH (07:56)
[2016-09-06] MEDS: MAGNESIUM OXIDE 400 MG TAB PO SCH (07:57)
[2016-09-06] MEDS: POLYETHYLENE (MIRALAX) 17 GM PACK PO SCH (07:57)
[2016-09-06] MEDS: MULTIVITAMIN TAB PO SCH (07:57)
[2016-09-06] MEDS: CALCIUM 600MG + VIT D 400 IU TAB PO SCH (07:57)
[2016-09-06] MEDS: LIDODERM (LIDOCAINE) PATCH 5% TD SCH (07:57)
[2016-09-06] MEDS: DILTIAZEM HCL 180 MG CAPCR PO SCH (07:58)
[2016-09-06 10:39] LABS: INR 1.6 (0.9-1.1); PROTHROMBIN TIME (PATIENT) 17.2 SECONDS (9.0-12.0)
[2016-09-06] MEDS ORDERED: ULT50X PO (13:44)
[2016-09-06] MEDS ORDERED: MRLP17 PO (13:44)
[2016-09-06] MEDS ORDERED: LDDP5 TD (13:44)
[2016-09-06] MEDS ORDERED: ADVIN25050 INH (13:44)
[2016-09-06] MEDS ORDERED: ACET-24 PO (13:44)
--- NOTE | 2016-09-06 13:48 | Discharge Instructions ---
Discharge Instructions Date of Service Sep 06, 2016. Admission Reason for Admission: Ambulatory Dysfunction, Right Rib Fracture Discharge Discharge Diagnosis / Problem: right rib fracture, left finger fracture Discharge Goals Goal(s): Diagnostic testing, Therapeutic intervention Activity Recommendations Activity Level: Assistance Required Therapies: Physical Therapy, Occupational Therapy . Additional Information Patient informed of condition: Yes Advance Directives: Yes DNR: No Level of Care: Skilled Communicable Disease: No Prognosis: Stable [place] Catheter: No Current Hospital Diet Patient's current hospital diet: AHA Diet (Heart Healthy) Discharge Diet Recommended Diet: Regular Diet Pending Studies Studies pending at discharge: no Laboratory Results 85yo male fall with hip pain, finger laceration and stable afib/copd right hip pain s/p fall - no hip or pelvis fractures on x-ray or CT. small hematoma on outer aspect of the hip resume coumadin. scheduled tylenol , lidoderm, tramadol prn. left 3rd finger fracture - splint, nonoperative Rx. right sided rib fracture - lidoderm patches. Pain control. a. fib - rates controlled; resume coumadin 09/04 with usual dose 09/05 * 8mg ///Friday * 10mg //Friday * daily INR slightly low on transition COPD - stable, advair 250/50 1 puff BID Albuterol prn. DVT proph - coumadin. h/o stroke with resulting right-sided weakness - coumadin asa for secondary stroke prevention. baseline deficits on right likely led to his fall. constipation - miralax BID. Medical Emergencies . Who to Call and When: Medical Emergencies: If at any time you feel your situation is an emergency, please call 911 immediately. . Non-Emergent Contact Non-Emergency issues call your: Primary Care Provider Call Non-Emergent contact if: temperature is above 101, your pain is unusual for you . . "Provider Documentation" section prepared by Juan Ramon Asher. . Core Measure Problem Core Measures: None
--- NOTE | 2016-09-06 13:49 | Discharge Summary ---
Discharge Summary Date of Service Sep 06, 2016. Discharge Summary Admission Date: Sep 02, 2016 at 19:54 Discharge Date: Sep 06, 2016 Discharge Disposition: long term facility Principal Diagnosis: fall with rib fracture and left 4th finger fracture, hip contusion Immunizations: Have You Had Influenza Vaccine: Yes Influenza Vaccine Date: Jan 08, 2012 History of Tetanus Vaccine?: Yes Tetanus Immunization Date: July 13, 2001 History of Pneumococcal: Yes Pneumococcal Date: Sep 07, 2011 History of Hepatitis B Vaccine: Unknown Medication Reconciliation New Medications: Acetaminophen (Sb Non-Aspirin Extra Stre) 500 Mg Tab 1000 MG PO Q8, #90 TAB Fluticasone Prop/Salmeterol (Advair Diskus 250-50 Mcg/Dose) 14 Puff/1 Inhaler Aerp 1 PUFF INH BID, #1 INHALER Lidocaine (Lidocaine) 1 Patch Tdsy 3 PATCH TD QAM, #20 PATCH Polyethylene (Miralax) 17 Gm Pow 17 GM PO BID, #60 DOSE Tramadol HCl (Tramadol HCl) 50 Mg Tab 50 MG PO Q6H PRN for Pain, #60 TAB Continued Medications: Albuterol (Ventolin) Inh 2 PUFFS INH Q4-6HRS PRN for COPD, 0 Refills Aspirin (Aspirin) 325 Mg Tab 325 MG PO DAILY Calcium Carbonate-Vitamin D (Calcium 600 + D) 1 Tab Tab 1 TAB PO DAILY Digoxin (Lanoxin) 0.125 Mg Tab 0.125 MG PO DAILY, TAB Diltiazem HCl (Diltiazem HCl ER) 180 Mg Capcr 360 MG PO QAM for 30 Days Finasteride (Proscar) 5 Mg Tab 5 MG PO QPM, 0 Refills Fish Oil ([place]-3) Oil 1200 MG PO QPM, CAP Magnesium Oxide (Mag-Ox) 400 Mg Tab 400 MG PO BID, TAB Multivitamin (Multivitamin) Tab 1 TAB PO DAILY, 0 Refills Omeprazole (Prilosec) 40 Mg Capcr 40 MG PO DAILY, CAP Probiotic Product (Probiotic) 1 Cap Cap 1 CAP PO QPM Tiotropium [place] (Spiriva Handihaler) 18 Mcg/ Aerp 1 CAP INH DAILY, INHALER Warfarin Sod (Jantoven) 3 Mg Tab 3 MG PO DIRECTED, TAB TAKE WITH 5MG EVERY Friday Warfarin Sod (Jantoven) 5 Mg Tab 5 MG PO DIRECTED, TAB TAKE WITH 3MG TABLET EVERY FRI,FRI,FRI,FRIDAY FOR A TOTAL OF 8MG Warfarin Sod (Jantoven) 10 Mg Tab 10 MG PO DIRECTED, TAB TAKE 10MG EVERY ,,FRIDAY Discontinued Medications: Metoprolol Tartrate (Lopressor) (Lopressor) 25 Mg Tab 12.5 MG PO BID, TAB Nitroglycerin (Nitrostat) 0.4 Mg/1 Tab Subl 0.4 MG SL UD PRN for Chest Pain, #30 Discharge Exam Review of Systems: Constitutional: + weakness, + fatigue, No fever, No chills Respiratory: No cough, No sputum Cardiovascular: + chest pain (with deep breath) Abdomen: + pain, + nausea Physical Exam: General Appearance: WD/WN, + mild distress Neck: supple, no JVD Respiratory/Chest: chest non-tender, lungs clear Cardiovascular: regular rate, rhythm, no murmur Neurologic/Psychiatric: alert, oriented x 3 Hospital Course 85yo male fall with hip pain, finger laceration and stable afib/copd right hip pain s/p fall - no hip or pelvis fractures on x-ray or CT. small hematoma on outer aspect of the hip resume coumadin. scheduled tylenol , lidoderm, tramadol prn. left 3rd finger fracture - splint, nonoperative Rx. right sided rib fracture - lidoderm patches. Pain control. a. fib - rates controlled; resume coumadin 09/04 with usual dose 09/05 * 8mg ///Friday * 10mg //Friday * daily INR slightly low on transition COPD - stable, advair 250/50 1 puff BID Albuterol prn. DVT proph - coumadin. h/o stroke with resulting right-sided weakness - coumadin asa for secondary stroke prevention. baseline deficits on right likely led to his fall. constipation - miralax BID. Total Time Spent: Greater than 30 minutes This includes examination of the patient, discharge planning, medication reconciliation, and communication with other providers. Discharge Instructions Please refer to the electronic Patient Visit Report (Discharge Instructions) for additional information.
[2016-09-06 13:55] VITALS: BP 114/62; PULSE 90; TEMP 36.7; O2SAT 91
[2016-09-06] MEDS ORDERED: WARFARIN SOD 4 MG TAB PO SCH (16:00)
== END 2016-09-06 15:55 ==
LOC: EDBD 13:25 → C.EDB 13:26 → C.MED 19:54 → INTOOBSV 19:54 → ENRESERV 20:01 → EDBEDREQ 20:04
PROVIDERS: ADMIT Internal Medicine; ATTEND Internal Medicine
DX: M25.551 Pain in right hip (principal); W19.XXXA Unspecified fall, initial encounter; Y93.01 Activity, walking, marching and hiking; S22.31XA Fracture of one rib, right side, initial encounter for closed fracture; S70.01XA Contusion of right hip, initial encounter; S62.601A Fracture of unspecified phalanx of left index finger, initial encounter for closed fracture; R26.2 Difficulty in walking, not elsewhere classified; I48.91 Unspecified atrial fibrillation; I10 Essential (primary) hypertension; Z96.659 Presence of unspecified artificial knee joint; Z82.49 Family history of ischemic heart disease and other diseases of the circulatory system; Z87.891 Personal history of nicotine dependence; Z79.82 Long term (current) use of aspirin; Z79.01 Long term (current) use of anticoagulants; Z86.73 Personal history of transient ischemic attack (TIA), and cerebral infarction without residual deficits; Z79.899 Other long term (current) drug therapy

== ENCOUNTER → 2016-09-11 | Outpatient (CLI) | payer OTHER ==
[~2016-09-11] MED LIST changes: +ACET-1256 PO; +ACET-24 PO; +ADVIN25050 INH; -AMOX875T3 PO; -CMD4 PO; +DIGO30TA PO; +DILT-113 PO; +DILT-119 PO; +LDDP5 TD; +LEVO-366 PO; -LPR25 PO; +METO25TA56 PO; -METR0.754 TOP; +MRLP17 PO; +NTRGSL/4 UT; -NTRSLP4 SL; -NYSS5 PO; +OMEG10007 PO; +PRLSR20 PO; +SPRIN/30 INH; +TRAM-10 PO; +ULT50X PO; +VNTHFA/IN INH; +WARF10TA4 PO; +WARF3TAB6 PO; +WARF5TAB7 PO
[2016-09-11 09:00] LABS: INR 1.6 (0.9-1.1); PROTHROMBIN TIME (PATIENT) 17.5 SECONDS (9.0-12.0)
== END ==
LOC: C.LABCC 07:58
PROVIDERS: ATTEND Internal Medicine
DX: I48.91 Unspecified atrial fibrillation (principal)

== ENCOUNTER → 2016-09-19 | Outpatient (CLI) | payer OTHER ==
[2016-09-19 14:47] LABS: INR 1.2 (0.9-1.1); PROTHROMBIN TIME (PATIENT) 13.4 SECONDS (9.0-12.0)
== END ==
LOC: C.LABSPEC 14:19
PROVIDERS: ATTEND Internal Medicine
DX: I48.91 Unspecified atrial fibrillation (principal)

== ENCOUNTER 2016-11-13 07:49 | Emergency (ER) | payer OTHER ==
[~2016-11-13] VITALS: Ht 182.9 cm; Wt 79.3 kg
[~2016-11-13 07:49] MED LIST changes: -ACET-1256 PO; -DIGO30TA PO; -DILT-113 PO; -DILT-119 PO; -LEVO-366 PO; -METO25TA56 PO; -NTRGSL/4 UT; -OMEG10007 PO; -PRLSR20 PO; -SPRIN/30 INH; -TRAM-10 PO; -VNTHFA/IN INH
[2016-11-13 07:55] VITALS: TEMP 37.8; Ht 182.9 cm; Wt 79.3 kg
[2016-11-13] MEDS ORDERED: PRLSR20 PO (08:08)
[2016-11-13] MEDS ORDERED: DIGO30TA PO (08:08)
[2016-11-13] MEDS ORDERED: VNTHFA/IN INH (08:08)
[2016-11-13] MEDS ORDERED: OMEG10007 PO (08:08)
[2016-11-13] MEDS ORDERED: DILT-119 PO (08:08)
[2016-11-13] MEDS ORDERED: NTRGSL/4 UT (08:08)
[2016-11-13] MEDS ORDERED: SPRIN/30 INH (08:08)
[2016-11-13] MEDS ORDERED: METO25TA56 PO (08:08)
[2016-11-13] MEDS ORDERED: TRAM-10 PO (08:08)
[2016-11-13] MEDS ORDERED: ACET-1256 PO (08:08)
[2016-11-13] MEDS ORDERED: SODIUM CHLORIDE 0.9% 1000ML 1,000 ML IV STA (08:18)
[2016-11-13 08:40] LABS: BASO % 0.2 %; BASO ABS # 0.02 K/uL (0-0.2); COMPLETE YES; EOS % 0.4 %; IG% 0.2 %; LYMPH % 4.9 %; LYMPH ABS # 0.46 K/uL (1.2-3.4); MEAN CELL VOLUME 84.3 fL (80-100); MEAN CORPUSCULAR HEMOGLOBIN 28.2 pg (25-34); MEAN CORPUSCULAR HGB CONC 33.5 g/dl (32-36); MEAN PLATELET VOLUME 10.7 fL (7.4-10.4); MONO % 5.4 %; NEUT % 88.9 %; PLATELET COUNT 158 K/uL (130-400); WHITE BLOOD COUNT 9.36 K/uL (4.8-10.8)
[2016-11-13 08:41] LABS: INR 2.5 (0.9-1.1); PARTIAL THROMBOPLASTIN RATIO 1.3; PROTHROMBIN TIME (PATIENT) 27.4 SECONDS (9.0-12.0)
--- NOTE | 2016-11-13 08:47 | DIAGNOSTIC IMAGING REPORT ---
CHEST ONE VIEW PORTABLE CLINICAL HISTORY: Altered mental status COMPARISON STUDY: 11/01/2015 FINDINGS: The heart is normal in size. There is diffuse interstitial thickening more pronounced on the right. There is no lobar consolidation. There is minor blunting of the right lateral costophrenic angle.[ IMPRESSION: Increasing interstitial thickening. Diagnostic considerations include mild interstitial edema, an acute interstitial inflammatory process, or interstitial lung disease. Clinical and radiographic follow-up is recommended. Electronically signed by: Tonio Perez M.D. 11/13/2016 8:45 AM Dictated Date/Time: 11/13/2016 8:43 AM
[2016-11-13 08:48] LABS: BUN/CREATININE RATIO 17.1 (10-20); CALCIUM 9.1 mg/dl (8.5-10.1); CREATININE 0.82 mg/dl (0.60-1.40); MAGNESIUM 1.6 mg/dl (1.8-2.4); POTASSIUM 3.8 mmol/L (3.5-5.1)
[2016-11-13 08:53] LABS: CKMB/CK RATIO 2.4 (0-3.0)
[2016-11-13] MEDS ORDERED: DILT-113 PO (08:58)
[2016-11-13 11:00] LABS: URINE APPEARANCE CLEAR (CLEAR); URINE BILIRUBIN NEG (NEG); URINE COLOR YELLOW; URINE NITRITE NEG (NEG); URINE SPECIFIC GRAVITY 1.014 (1.000-1.030); UROBILINOGEN NEG (NEG); ZZUR CULT IF INDIC CLEAN CATCH NO
[2016-11-13 11:09] LABS: MANUAL MICROSCOPIC REQUIRED? NO; REVIEW REQ? NO
[2016-11-13 12:12] VITALS: BP 136/88; PULSE 112; O2SAT 96
[2016-11-13] MEDS ORDERED: LEVO-366 PO (12:31)
--- NOTE | 2016-11-13 15:15 | EMERGENCY ROOM VISIT NOTE ---
History Report prepared by Mj: Tate Pettit Under the Supervision of: Dr. Tim Dc D.O. First contact with patient: 08:06 Chief Complaint: WEAKNESS Stated Complaint: FATIGUE/NON AMBULATORY Nursing Triage Summary: Wokeabout 0430 this morning. Was unable to get out of bed. Pt incontinent at home. This is not his normal self. Pt has a hearing aid but is difficult to communicate with. History of Present Illness The patient is a 85 year old male who presents to the Emergency Room with complaints of constant weakness starting this morning around 0430. The patient states that he was having difficulty getting out of bed to go the bathroom. The patient denies any chest pain, shortness of breath, vomiting, and diarrhea. The patient has a history of a stroke, and he states that he uses a wheel chair. Source of History: patient Onset: 0430 Position: other (global) Quality: other (weakness) Timing: constant Associated Symptoms: No chest pain, No SOB, No vomiting, No diarrhea Review of Systems See HPI for pertinent positives & negatives. A total of 10 systems reviewed and were otherwise negative. 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 (13) Syncope and collapse Family History FH: cancer FHx: lung disease Heart disease Hypertension Social History Smoking Status: Former Smoker Alcohol Use: none Drug Use: none Marital Status: Housing Status: lives with family Occupation Status: retired Current/Historical Medications Scheduled Acetaminophen (Tylenol), 1,000 MG PO HS Aspirin (Aspirin), 325 MG PO DAILY Calcium Carbonate-Vitamin D (Calcium 600 + D), 1 TAB PO DAILY Digoxin (Digitek), 0.125 MG PO DAILY Diltiazem Hcl Ext Rel (Tiazac), 180 MG PO DAILY Finasteride (Proscar), 5 MG PO QPM Fish Oil ([place]-3), 1,200 MG PO DAILY Levofloxacin (Levaquin), 500 MG PO DAILY Magnesium Oxide (Mag-Ox), 400 MG PO BID Metoprolol Tartrate (Lopressor) (Lopressor), 12.5 MG PO BID Multivitamin (Multivitamin), 1 TAB PO DAILY Nitroglycerin (Nitrostat), 0.4 MG UT PRN Omeprazole (Prilosec), 40 MG PO DAILY Probiotic Product (Probiotic), 1 CAP PO QPM Tiotropium Carmen (Spiriva Handihaler), 1 CAP INH DAILY Tramadol (Ultram), 50 MG PO DIRECTED Warfarin Sod (Jantoven), 3 MG PO 6XWK Warfarin Sod (Jantoven), 5 MG PO 6XWK Warfarin Sod (Jantoven), 10 MG PO WK Scheduled PRN Albuterol Hfa (Ventolin Hfa), 2 PUFFS INH Q4H PRN for COPD Allergies Coded Allergies: Clonidine (Verified Allergy, Mild, 09/02/16) Felodipine (Verified Allergy, Mild, 09/02/16) Physical Exam Vital Signs Date Time Temp Pulse Resp B/P (MAP) Pulse Ox O2 Delivery O2 Flow Rate FiO2 11/13/16 12:12 112 18 136/88 96 Room Air 11/13/16 10:54 110 32 93 11/13/16 10:49 112 28 95 11/13/16 10:44 110 31 87 11/13/16 10:39 104 33 91 11/13/16 10:34 119 28 94 11/13/16 10:31 146/74 11/13/16 10:29 106 31 94 11/13/16 10:24 112 28 92 11/13/16 10:19 111 32 87 11/13/16 10:14 109 26 92 11/13/16 10:09 108 19 93 11/13/16 10:04 115 17 93 11/13/16 10:02 142/85 11/13/16 09:59 137 20 90 11/13/16 09:54 109 31 93 11/13/16 09:49 126 33 87 11/13/16 09:44 108 31 92 11/13/16 09:39 129 32 89 11/13/16 09:34 111 32 90 11/13/16 09:31 125/70 11/13/16 09:29 119 33 89 11/13/16 09:24 112 34 90 11/13/16 09:19 123 34 89 11/13/16 09:14 100 29 93 11/13/16 09:09 97 31 92 11/13/16 09:04 111 33 89 9/27/17 09:01 120/84 11/13/16 08:59 101 23 91 11/13/16 08:54 114 22 93 11/13/16 08:49 110 26 93 11/13/16 08:44 105 28 93 11/13/16 08:40 144/78 11/13/16 08:39 116 30 92 11/13/16 08:34 108 26 92 11/13/16 08:29 115 22 92 11/13/16 08:24 112 30 91 11/13/16 08:19 105 17 92 11/13/16 08:14 109 16 92 11/13/16 08:09 110 25 89 11/13/16 08:04 110 14 92 11/13/16 07:59 120 18 92 11/13/16 07:59 112 11/13/16 07:55 37.8 107 18 143/87 Room Air 11/13/16 07:51 143/87 Physical Exam CONSTITUTIONAL/VITAL SIGNS: Reviewed / noted above. GENERAL: Generalized weakness. Non-toxic in appearance. INTEGUMENTARY: Warm, dry, and [place]. HEAD: Normocephalic. EYES: without scleral icterus or trauma. ENT/OROPHARYNX: clear and moist. LYMPHADENOPATHY/NECK: Is supple without lymphadenopathy or meningismus. RESPIRATORY: Lungs clear and equal. CARDIOVASCULAR: Regular rate and rhythm. GI/ABDOMEN: Soft and nontender. No organomegaly or pulsatile mass. No rebound or guarding. Normal bowel sounds. EXTREMITIES: Warm and well perfused. BACK: No CVA tenderness. NEUROLOGICAL: Intact without focal deficits. PSYCHIATRIC: normal affect. MUSCULOSKELETAL: Normally developed with good muscle tone. Medical Decision & Procedures ER Provider Diagnostic Interpretation: Radiology results as stated below per my review and radiologist interpretation: CHEST ONE VIEW PORTABLE CLINICAL HISTORY: Altered mental status COMPARISON STUDY: 11/01/2015 FINDINGS: The heart is normal in size. There is diffuse interstitial thickening more pronounced on the right. There is no lobar consolidation. There is minor blunting of the right lateral costophrenic angle.[ IMPRESSION: Increasing interstitial thickening. Diagnostic considerations include mild interstitial edema, an acute interstitial inflammatory process, or interstitial lung disease. Clinical and radiographic follow-up is recommended. Electronically signed by: Tonio Perez M.D. 11/13/2016 8:45 AM Dictated Date/Time: 11/13/2016 8:43 AM Laboratory Results 11/13/16 08:00 Red Blood Count 5.10, Mean Corpuscular Volume 84.3, Mean Corpuscular Hemoglobin 28.2, Mean Corpuscular Hemoglobin Concent 33.5, Mean Platelet Volume 10.7, Neutrophils (%) (Auto) 88.9, Lymphocytes (%) (Auto) 4.9, Monocytes (%) (Auto) 5.4, Eosinophils (%) (Auto) 0.4, Basophils (%) (Auto) 0.2, Neutrophils # (Auto) 8.31, Lymphocytes # (Auto) 0.46, Monocytes # (Auto) 0.51, Eosinophils # (Auto) 0.04, Basophils # (Auto) 0.02 11/13/16 08:00 Test 11/13/16 08:00 11/13/16 10:00 White Blood Count 9.36 K/uL (4.8-10.8) Red Blood Count 5.10 M/uL (4.7-6.1) Hemoglobin 14.4 g/dL (14.0-18.0) Hematocrit 43.0 % (42-52) Mean Corpuscular Volume 84.3 fL (80-100) Mean Corpuscular Hemoglobin 28.2 pg (25-34) Mean Corpuscular Hemoglobin Concent 33.5 g/dl (32-36) Platelet Count 158 K/uL (130-400) Mean Platelet Volume 10.7 fL (7.4-10.4) Neutrophils (%) (Auto) 88.9 % Lymphocytes (%) (Auto) 4.9 % Monocytes (%) (Auto) 5.4 % Eosinophils (%) (Auto) 0.4 % Basophils (%) (Auto) 0.2 % Neutrophils # (Auto) 8.31 K/uL (1.4-6.5) Lymphocytes # (Auto) 0.46 K/uL (1.2-3.4) Monocytes # (Auto) 0.51 K/uL (0.11-0.59) Eosinophils # (Auto) 0.04 K/uL (0-0.5) Basophils # (Auto) 0.02 K/uL (0-0.2) RDW Standard Deviation 43.3 fL (36.4-46.3) RDW Coefficient of Variation 14.0 % (11.5-14.5) Immature Granulocyte % (Auto) 0.2 % Immature Granulocyte # (Auto) 0.02 K/uL (0.00-0.02) Prothrombin Time 27.4 SECONDS (9.0-12.0) Prothromb Time International Ratio 2.5 (0.9-1.1) Activated Partial Thromboplast Time 34.6 SECONDS (21.0-31.0) Partial Thromboplastin Ratio 1.3 Anion Gap 12.0 mmol/L (3-11) Est Creatinine Clear Calc Drug Dose 73.6 ml/min Estimated GFR () 94.1 Estimated GFR (Non- 81.2 BUN/Creatinine Ratio 17.1 (10-20) Calcium Level 9.1 mg/dl (8.5-10.1) Magnesium Level 1.6 mg/dl (1.8-2.4) Total Bilirubin 1.1 mg/dl (0.2-1) Direct Bilirubin 0.4 mg/dl (0-0.2) Aspartate Amino Transf (AST/SGOT) 37 U/L (15-37) Alanine Aminotransferase (ALT/SGPT) 36 U/L (12-78) Alkaline Phosphatase 114 U/L (45-117) Total Creatine Kinase 51 U/L (39-308) Creatine Kinase MB 1.2 ng/ml (0.5-3.6) Creatine Kinase MB Ratio 2.4 (0-3.0) Troponin I 0.032 ng/ml (0-0.045) Total Protein 7.1 gm/dl (6.4-8.2) Albumin 3.7 gm/dl (3.4-5.0) Urine Color YELLOW Urine Appearance CLEAR (CLEAR) Urine pH 7.0 (4.5-7.5) Urine Specific [place] 1.014 (1.000-1.030) Urine Protein NEG (NEG) Urine Glucose (UA) NEG (NEG) Urine Ketones NEG (NEG) Urine Occult Blood NEG (NEG) Urine Nitrite NEG (NEG) Urine Bilirubin NEG (NEG) Urine Urobilinogen NEG (NEG) Urine Leukocyte Esterase NEG (NEG) Urine WBC (Auto) 1-5 /hpf (0-5) Urine RBC (Auto) 0-4 /hpf (0-4) Urine Hyaline Casts (Auto) 0 /lpf (0-5) Urine Epithelial Cells (Auto) 5-10 /lpf (0-5) Urine Bacteria (Auto) NEG (NEG) Laboratory results as stated above per my review. Medications Administered Medications (Trade) Dose Ordered Sig/Anton Route Start Time Stop Time Status Last Admin Dose Admin Sodium Chloride 1,000 ml @ 999 mls/hr Q1H1M STAT IV 11/13/16 08:18 11/13/16 09:18 DC 11/13/16 08:30 999 MLS/HR Levofloxacin (Levaquin Tab) 500 mg DAILY@11 PO 11/14/16 11:00 11/14/16 11:00 DC 11/13/16 12:50 500 MG ECG Indication: weakness Rate (beats per minute): 109 Rhythm: atrial fibrillation Findings: RBBB, no ectopy, other (No acute injury) Comparison ECG Date: 09/02 Change: Rate increased. Otherwise no significant change. ED Course 0806: Previous medical records were reviewed. The patient was evaluated in room B11. A complete history and physical examination was performed. 0818: Sodium Chloride 1000 ml @ 999 mls/hr IV 1100: Levofloxacin 500mg PO 1155: I reevaluated the patient, and the is unsure if the patient is strong enough to ambulate, and she states that he has been having a slight cough recently. We are going to do an ambulation test. 1240: The patient did well, and he is going to be discharged home. Medical Decision Differential includes acute coronary syndrome, myocardial infarction, CVA, TIA, anemia, infection, pneumonia, UTI, pyelonephritis, poor nutrition, dehydration, electrolyte disturbance,hypoglycemia. This is an 85-year-old male who presents to the ED with a chief complaint of generalized weakness. The patient states that he has been weak for a couple of days. He otherwise has no specific complaints. He states that he primarily came in because his was concerned about his weakness. The patient's vital signs have been reviewed. Temperature is 37.8. Heart rate was 112. His exam was unremarkable. Urine did not show infection. CBC is normal, complete metabolic panel was unremarkable. Glucose was 173. Troponin is was negative. INR is 2.5. Chest x-ray revealed questionable infiltrate. The patient was described as having a very mild cough according to the . He was started on Levaquin. The patient was felt to be stable for discharge. The patient did pass an ambulatory trial without difficulty. Medication Reconcilliation Current Medication List: was personally reviewed by me Blood Pressure Screening Patient's blood pressure: Elevated blood pressure Blood pressure disposition: Elevated BP felt to be situational Impression Primary Impression: Pneumonia Additional Impression: Weakness Scribe Attestation The scribe's documentation has been prepared under my direction and personally reviewed by me in its entirety. I confirm that the note above accurately reflects all work, treatment, procedures, and medical decision making performed by me. Departure Information Prescriptions Levofloxacin (Levaquin) 500 Mg Tab 500 MG PO DAILY for 7 Days, #7 TAB Prov: Tim Dc D.O. 11/13/16 Referrals [facility] (PCP) Patient Instructions My [facility] Problem Qualifiers
[2016-11-14] MEDS ORDERED: LEVOFLOXACIN 500 MG TAB PO SCH (11:00)
== END 2016-11-13 12:45 | disposition home or self-care (01) ==
LOC: EDBD 07:49 → C.EDB 07:51
DX: J18.9 Pneumonia, unspecified organism (principal); R53.1 Weakness; I48.91 Unspecified atrial fibrillation; I44.0 Atrioventricular block, first degree; I10 Essential (primary) hypertension; R73.03 Prediabetes; Z86.73 Personal history of transient ischemic attack (TIA), and cerebral infarction without residual deficits; Z98.49 Cataract extraction status, unspecified eye; Z96.659 Presence of unspecified artificial knee joint; Z87.891 Personal history of nicotine dependence; Z79.82 Long term (current) use of aspirin; Z79.01 Long term (current) use of anticoagulants; Z79.899 Other long term (current) drug therapy; Z88.8 Allergy status to other drugs, medicaments and biological substances; Z80.9 Family history of malignant neoplasm, unspecified; Z82.49 Family history of ischemic heart disease and other diseases of the circulatory system

== ENCOUNTER 2018-04-24 01:55 | Inpatient (IN) ==
[2018-04-24 02:17] LABS: Basophils # (auto) 0.03 K/uL (0-0.2); Basophils % (auto) 0.4 %; Eosinophils # (auto) 0.11 K/uL (0-0.5); Eosinophils % (auto) 1.5 %; Hematocrit (blood only) 41.9 % (42-52); Immature Granulocytes # (auto) 0.02 K/uL (0.00-0.02); Immature Granulocytes % (auto) 0.3 %; Lymphocytes # (auto) 1.32 K/uL (1.2-3.4); Lymphocytes % (auto) 18.2 %; Mean Corpuscular Hgb Conc 33.4 g/dL (32-36); Mean Corpuscular Volume 86.6 fL (80-100); Mean Platelet Volume 10.4 fL (7.4-10.4); Monocytes # (auto) 0.72 K/uL (0.11-0.59); Monocytes % (auto) 9.9 %; Neutrophils # (auto) 5.06 K/uL (1.4-6.5); Neutrophils % (auto) 69.7 %; Platelet Count 167 K/uL (130-400); RDW Standard Deviation 47.9 fL (36.4-46.3); Red Blood Count 4.84 M/uL (4.7-6.1); White Blood Count 7.26 K/uL (4.8-10.8)
[2018-04-24 02:24] LABS: iSTAT Creatinine 0.9 mg/dl (0.6-1.3); iSTAT Hemoglobin 14.6 g/dl (14.0-18.0); iSTAT Ionized Calcium 1.16 mmol/l (1.12-1.32); iSTAT Potassium 3.8 mEq/L (3.3-5.0)
[2018-04-24 02:28] LABS: INR 1.2 (0.9-1.1)
[2018-04-24 02:34] LABS: Albumin Level 3.4 gm/dl (3.4-5.0); BUN Creatinine Ratio 17.7 (10-20); Bilirubin Direct 0.3 mg/dl (0-0.2); Calcium 8.5 mg/dl (8.5-10.1); Creatinine Clr Calc Pharmacy 60.7 ml/min; Est GFR (African American) 80.6; Est GFR (Non-African American) 69.5; Magnesium 1.7 mg/dl (1.8-2.4); Potassium 3.9 mmol/L (3.5-5.1)
[2018-04-24] MEDS ORDERED: IOVERSOL 100ml IV PRN (02:35)
[2018-04-24 02:39] LABS: Bilirubin,Total 0.8 mg/dl (0.2-1); Total Protein 7.1 gm/dl (6.4-8.2); Troponin I 0.027 ng/ml (0-0.045)
--- NOTE | 2018-04-24 03:36 | Emergency Department Note ---
Entered by Irma Montes De Oca acting as a scribe for Guru Deal MD ED Provider Note Name: Sj Steele Age: 87 M Arrives Via: EMS Informant: EMS, the patient CC: Syncope HPI: An 87 year old male arrives for evaluation of an episode of syncope PACKAGE CLERK. EMS reports that the patients believes the patient had a mini CVA PACKAGE CLERK but that she was describing a syncopal episode. They states that the reported the patient was sitting at the edge of his bed and tried to get up when this ep isode happened. She added that this was the third episode the patient had in the past 2 weeks. EMS reports that the said the patient was short of breath at the time of this episode. They state that the patient had a major CVA in 2018. They note that the patient lives at home with his . They add that the patient received no medication PACKAGE CLERK. The patient reports that he was short of breath PACKAGE CLERK. He states that he took 1 breathing treatment at home PACKAGE CLERK but that it didnt help his breathing. He notes that lying down improves his symptoms and walking around worsens his symptoms. The patient denies headache and neck pain. ROS: See above HPI for pertinent positives & negatives. A total of 10 systems reviewed and were otherwise negative. Past Medical History: HTN, CVA, GERD, COPD, A-fib, BPH, Diabetes, Aortic stenosis. Past Surgical History: Transurethral resection of prostate. Family History: Non-contributory. Social History: Lives at home with spouse. Former smoker. Home Medications: Ventolin HFA 1-2 puff INH, Finasteride 5 mg PO, Spiriva with HandiHaler 1 cap INH. Allergies Clonidine, Felodipine. Physical: Vitals: BP: 164/72, Pulse: 50, Resp: 18, Temp: 36.4F, O2 Sat: 90, Delivery: 2L NC Exam: GENERAL: Patient is chronically ill and tired appearing and in minimal distress. EYES: No scleral icterus, unremarkable pupils. ENT: Mucous membranes moist, no nasal congestion. NECK: No masses appreciated, no meningismus, trachea is midline. RESPIRATORY: Appears dyspnic with decreased lung sounds throughout right fiends. No wheeze, no rhonchi. CARDIOVASCULAR: Bradycardic rate and regular rhythm. Systolic murmur. No rubs, gallops appreciated. GASTROINTESTINAL: Abdomen soft, non-tender, no peritonitis. Bowel sounds positive. No masses appreciated. BACK: No midline tenderness, no CVA tenderness EXTREMITIES: Peripheral vascular disease to bilateral lower legs. Mild edema to bilateral lower legs. No calf tenderness. Contracture of the right arm. NEUROLOGIC: Alert and oriented, no acute motor or sensory deficits, no focal weakness, cranial nerves grossly intact. SKIN: No rash, no jaundice, no diaphoresis. ED Course: 0157: Prior Medical Record, Triage/Nursing Notes, Medications, Allergies revi ewed by Me. The patient was evaluated in room C9, and a complete history and physical examination were performed. Vital Signs: reviewed and remarkable for hypoxia, bradycardia Labs: Reviewed and remarkable for wnl cbc, bmp, trop Interventions: [place], [place] O2 Imaging: [facility] Radiologist interpretation reviewed by me: "CT HEAD: COMPARISON: CT head 01/26/18 and MRI head 01/25/18 IMPRESSION: No intracranial hemorrhage or depressed calvarial fracture. Volume loss, chronic microvascular ischemic change, and chronic right cerebellar infarct without CT evidence of acute territorial infarction. INCIDENTAL FINDINGS: Radiologist: Jer Luna M.D." "CTA CHEST: COMPARISON: CT chest 12/21/17 IMPRESSION: Significant respiratory motion limits evaluation for pulmonary embolism and detailed evaluation of the lungs. No central, lobar, or definite occlusive proximal segmental pulmonary embolism. The mid/distal segmental and subsegmental vessels are obscured by motion and emboli in these distributions cannot be excluded, particularly to the right lung base. Correlate clinically. Nuclear medicine VQ scan could further assess as indicated. Emphysema, large right/trace left pleural effusions, and nonspecific right greater than left infrahilar groundglass opacities which may reflect edema, atelectasis, consolidation, or some combination. Cardiomegaly and atherosclerosis without thoracic aortic aneurysm or pericardial effusion. Age-indeterminate left posterolateral eighth rib fracture with healing callous formation compatible with subacute to chronic fracture. Correlate with tenderness to palpation. INCIDENTAL FINDINGS: Enlarged right and left main pulmonary arteries. Right adrenal thickening. Radiologist: Jer Luna M.D." EKG: Per My Interpretation: Afib Guru with RBBB no ischemia. Similar to previous EKGs. Improved rate from rhythm strip (HR30) for EMS. Consults: Dr Roque KIM Hospitalist for further management. Blood pressure: Normal. No Referral necessary Disposition: Hospitalization Differentials: Etiologies such as vasovagal event, infection, anemia, hypoglycemia, hypovolemia, electrolyte abnormalities, dysrhythmias, cardiac ischemia, cardiac tamponade, valvular heart disease, structural heart disease, seizure, vascular stenosis/dissection, pulmonary embolism, intracerebral event, toxicological process, neurologic event, as well as others were entertained. Medical Decision Making: Pleasant 87 yr old male with brief 15 sec syncopal event this evening witnessed by and gently laid on to bed without trauma. Arrives with bradycardia, hypoxia. He is in no distress and denies complaints. Bradycardia seems to be chronic. He has decreased breath sounds throughout most of right lungs, on top of this with hypoxia and syncope felt that CT imaging of chest necessary. CT head done as well given sycnope and history of ICH last year. He is not on anti-coagulation given previous ICH. He is breathing comfortably on [place] O2 (which he states does not use at home). Impression: Syncope Hypoxia Pleural Effusion of Right Guru Deal MD The scribe's documentation has been prepared under my direction and personally reviewed by me in its entirety. I confirm that the note above accurately reflects all work, treatment, procedures, and medical decision making performed by me. Impression & Plan Syncope, Hypoxia, Pleural effusion on right Past Med/Surg History Medical History Aortic stenosis H/O: CVA (cerebrovascular accident) Hypertension Diabetes (Chronic) BPH (benign prostatic hyperplasia) (Chronic) Atrial fibrillation (Chronic) GERD (gastroesophageal reflux disease) (Chronic) COPD (chronic obstructive pulmonary disease) (Chronic) H/O: CVA (cerebrovascular accident) Hearing impairment History of stroke Surgical History H/O transurethral resection of prostate Family History Other Family history non-contributory Social History Preferred Language: Maori Visual Impairment: No Limitations Beliefs That Will Affect Care: None Current Living Situation: Spouse Feels Safe at Home: Yes Smoking Status: Unknown if ever smoked Hx Alcohol Use: No Hx Substance Use: No Results & Data Vital Signs Vital Signs - 24 hr 04/24/18 02:02 04/24/18 02:46 04/24/18 03:01 Temperature 36.4 C L Temperature Source Oral Sepsis Recent Fever Within 48 Hours No Sepsis New/Unexplained Change in Mental Status No Sepsis Action Taken by Nursing No Action Required Pulse Rate 50 L 60 58 L Pulse Rate from SpO2 Sensor 50 L 47 L Pulse Rhythm Regular Pulse Strength Normal Respiratory Rate 18 17 17 Respiratory Effort / Characteristics Non-Labored Respiratory Depth Normal Respiratory Pattern Regular Blood Pressure 164/72 H 148/82 H 133/76 Blood Pressure Mean 102 104 95 Blood Pressure Position Lying Pulse Oximetry 90 94 94 Oxygen Delivery Method Room Air Nasal Cannula Oxygen Flow Rate 2 2 04/24/18 03:16 04/24/18 03:31 04/24/18 03:46 Temperature Temperature Source Sepsis Recent Fever Within 48 Hours Sepsis New/Unexplained Change in Mental Status Sepsis Action Taken by Nursing Pulse Rate 57 L 94 H 60 Pulse Rate from SpO2 Sensor 42 L Pulse Rhythm Pulse Strength Respiratory Rate 19 18 14 Respiratory Effort / Characteristics Respiratory Depth Respiratory Pattern Blood Pressure 143/72 H 157/68 H 146/80 H Blood Pressure Mean 95 97 102 Blood Pressure Position Pulse Oximetry 93 92 90 Oxygen Delivery Method Nasal Cannula Nasal Cannula Nasal Cannula Oxygen Flow Rate 2 2 2 04/24/18 04:01 04/24/18 04:16 04/24/18 04:30 Temperature Temperature Source Sepsis Recent Fever Within 48 Hours Sepsis New/Unexplained Change in Mental Status Sepsis Action Taken by Nursing Pulse Rate 65 63 56 L Pulse Rate from SpO2 Sensor Pulse Rhythm Pulse Strength Respiratory Rate 19 19 20 Respiratory Effort / Characteristics Respiratory Depth Respiratory Pattern Blood Pressure 158/63 H 153/69 H Blood Pressure Mean 94 97 Blood Pressure Position Pulse Oximetry 95 94 Oxygen Delivery Method Oxygen Flow Rate 2 2 04/24/18 04:31 04/24/18 04:45 04/24/18 04:46 Temperature Temperature Source Sepsis Recent Fever Within 48 Hours Sepsis New/Unexplained Change in Mental Status Sepsis Action Taken by Nursing Pulse Rate 51 L 64 53 L Pulse Rate from SpO2 Sensor 46 L 44 L Pulse Rhythm Pulse Strength Respiratory Rate 19 21 21 Respiratory Effort / Characteristics Respiratory Depth Respiratory Pattern Blood Pressure 149/79 H 159/76 H Blood Pressure Mean 102 103 Blood Pressure Position Pulse Oximetry 96 97 Oxygen Delivery Method Oxygen Flow Rate Home Medications Current Medication List: was personally reviewed by me Laboratory Data Attestation: I reviewed the patient's lab results. Result diagrams: 04/24/18 02:05 04/24/18 02:05 Lab Results 04/24/18 04/24/18 04/24/18 Range/Units 02:05 02:05 02:05 WBC 7.26 (4.8-10.8) K/uL RBC 4.84 (4.7-6.1) M/uL Hgb 14.0 (14.0-18.0) g/dL POC Hgb (14.0-18.0) g/dl Hct 41.9 L (42-52) % POC Hct (42-52) % MCV 86.6 (80-100) fL MCH 28.9 (25-34) pg MCHC 33.4 (32-36) g/dL RDW Std Deviation 47.9 H (36.4-46.3) fL RDW Coeff of Dolores 15.0 H (11.5-14.5) % Plt Count 167 (130-400) K/uL MPV 10.4 (7.4-10.4) fL Immature Gran % (Auto) 0.3 % Neut % (Auto) 69.7 % Lymph % (Auto) 18.2 % [place] % (Auto) 9.9 % Eos % (Auto) 1.5 % Baso % (Auto) 0.4 % Immature Gran # (Auto) 0.02 (0.00-0.02) K/uL Neut # (Auto) 5.06 (1.4-6.5) K/uL Lymph # (Auto) 1.32 (1.2-3.4) K/uL [place] # (Auto) 0.72 H (0.11-0.59) K/uL Eos # (Auto) 0.11 (0-0.5) K/uL Baso # (Auto) 0.03 (0-0.2) K/uL PT 12.0 (9.0-12.0) Seconds INR 1.2 H (0.9-1.1) POC Sodium (135-144) mEq/L Sodium 132 L (136-145) mmol/L POC Potassium (3.3-5.0) mEq/L Potassium 3.9 (3.5-5.1) mmol/L POC Chloride (101-112) mEq/L Chloride 97 L (98-107) mmol/L Carbon Dioxide 30 (21-32) mmol/L POC Total CO2 (24-31) mEq/l Anion Gap 5.0 (3-11) POC Anion Gap (16-25) mmol/L POC BUN (7-18) mg/dl BUN 17 (7-18) mg/dl Creatinine 0.98 (0.6-1.4) mg/dl POC Creatinine (0.6-1.3) mg/dl Est Cr Clr Drug Dosing 60.7 ml/min Est GFR ( Amer) 80.6 Est GFR (Non-Af Amer) 69.5 BUN/Creatinine Ratio 17.7 (10-20) Glucose 136 H (70-99) mg/dl POC Glucose (other) (70-99) mg/dl Calcium 8.5 (8.5-10.1) mg/dl POC Ioniz Calcium Sreedhar (1.12-1.32) mmol/l Magnesium 1.7 L (1.8-2.4) mg/dl Total Bilirubin 0.8 (0.2-1) mg/dl Direct Bilirubin 0.3 H (0-0.2) mg/dl AST 21 (15-37) U/L ALT 24 (12-78) U/L Alkaline Phosphatase 158 H (45-117) U/L Troponin I 0.027 (0-0.045) ng/ml Total Protein 7.1 (6.4-8.2) gm/dl Albumin 3.4 (3.4-5.0) gm/dl 04/24/18 Range/Units 02:09 WBC (4.8-10.8) K/uL RBC (4.7-6.1) M/uL Hgb (14.0-18.0) g/dL POC Hgb 14.6 (14.0-18.0) g/dl Hct (42-52) % POC Hct 43 (42-52) % MCV (80-100) fL MCH (25-34) pg MCHC (32-36) g/dL RDW Std Deviation (36.4-46.3) fL RDW Coeff of Dolores (11.5-14.5) % Plt Count (130-400) K/uL MPV (7.4-10.4) fL Immature Gran % (Auto) % Neut % (Auto) % Lymph % (Auto) % [place] % (Auto) % Eos % (Auto) % Baso % (Auto) % Immature Gran # (Auto) (0.00-0.02) K/uL Neut # (Auto) (1.4-6.5) K/uL Lymph # (Auto) (1.2-3.4) K/uL [place] # (Auto) (0.11-0.59) K/uL Eos # (Auto) (0-0.5) K/uL Baso # (Auto) (0-0.2) K/uL PT (9.0-12.0) Seconds INR (0.9-1.1) POC Sodium 134 L (135-144) mEq/L Sodium (136-145) mmol/L POC Potassium 3.8 (3.3-5.0) mEq/L Potassium (3.5-5.1) mmol/L POC Chloride 94 L (101-112) mEq/L Chloride (98-107) mmol/L Carbon Dioxide (21-32) mmol/L POC Total CO2 27 (24-31) mEq/l Anion Gap (3-11) POC Anion Gap 17.0 (16-25) mmol/L POC BUN 17 (7-18) mg/dl BUN (7-18) mg/dl Creatinine (0.6-1.4) mg/dl POC Creatinine 0.9 (0.6-1.3) mg/dl Est Cr Clr Drug Dosing ml/min Est GFR ( Amer) Est GFR (Non-Af Amer) BUN/Creatinine Ratio (10-20) Glucose (70-99) mg/dl POC Glucose (other) 142 H (70-99) mg/dl Calcium (8.5-10.1) mg/dl POC Ioniz Calcium Sreedhar 1.16 (1.12-1.32) mmol/l Magnesium (1.8-2.4) mg/dl Total Bilirubin (0.2-1) mg/dl Direct Bilirubin (0-0.2) mg/dl AST (15-37) U/L ALT (12-78) U/L Alkaline Phosphatase (45-117) U/L Troponin I (0-0.045) ng/ml Total Protein (6.4-8.2) gm/dl Albumin (3.4-5.0) gm/dl Administered Medications Ioversol (Optiray 320 100ml) 100 ml IV ONCE PRN PRN Reason: Interaction Checking Stop: 04/28/18 02:34 Last Admin: 04/24/18 02:35 Dose: 93 ml Documented by: [id number] Imaging Data Radiologist's Impression: Radiology results as stated below per my review and the radiologist's interpretation: ECG Data Attestation: I personally reviewed and interpreted this ECG as follows: Indication: syncope Discharge Plan Visit Data *Final* Discharge Date/Time: 04/24/18 04:53 Chief Complaint: Syncope ED Provider: Guru Deal Discharge Problem: Syncope, Hypoxia, Pleural effusion on right Patient Disposition: Admitted As Inpatient Discharge Instructions Interventions: ED Discharge Assessment Last Done: 04/24/18 04:53 Discharge Problem: Syncope Qualifiers: Syncope type: unspecified Qualified Code(s): R55 - Syncope and collapse The scribe's documentation has been prepared under my direction and personally reviewed by me in its entirety. I confirm that the note above accurately reflects all work, treatment, procedures, and medical decision making performed by me.
--- NOTE | 2018-04-24 04:01 | History & Physical Report ---
Date of Service April 24, 2018 Assessment & Plan (1) Pleural effusion on right: Mr. Steele is an 87-year-old gentleman with a history of prior embolic CVA with hemorrhagic transformation, atrial fibrillation, diabetes mellitus, COPD, aortic stenosis, hypertension, GERD who presents to the emergency department due to weakness, shortness of breath and multiple periods of unresponsiveness. -Admit to telemetry -CTA shows a large right-sided pleural effusion -Patient has a history of the same. Dr. Srivastava drained a right pleural effusion on 01/19/2018. Cytology was consistent with a transudate, and was presumed to be secondary to diastolic congestive heart failure -no concern for infection at this time given afebrile, normal WCC, and also recent outpatient treatment w/abx -O2 as needed to maintain oxygen saturations >92% -The patient's Eliquis was held for 3+ days for his prior thoracentesis. Unfortunately, he suffered an embolic right cerebellar stroke at this time, was subsequently started on a heparin drip, and had a hemorrhagic transformation of his right cerebellar stroke. He was transferred to [facility] at this time. No operation or intervention was done, and the patient went to [facility] for rehab. He remains with right upper and lower extremity wea kness. -Given his history of embolic stroke after holding his Eliquis, we will continue his Eliquis at this time, pending evaluation by Dr. Srivastava Syncopal episodes -The patient's describes multiple, brief periods of unresponsiveness as well as numerous falls. He has been seen in the neurology clinic for this, and per neurology's note, if he continues to have additional unresponsive events, he may need a repeat MRI +/- EEG -Repeat MRI done today did not show any acute findings -Differential diagnosis for syncopal episodes: Related to bradycardia, seizure, orthostatic hypotension, Carotid Sinus Syndrome -will place on telemetry for monitoring and consult neurology, as well as cardiology Bradycardia -Per review of patient's chart, he has had a history of bradycardia, dipping as low as 30s -Cardiology had recommended a pacemaker at some point, however the patient had not been symptomatic -?Potentially related to the patient's syncopal episodes, cardiology consulted Atrial fibrillation -Continue home mexiletine and apixaban Hypertension -Continue home lisinopril and furosemide Diabetes mellitus type 2 -Hold home metformin and place on insulin sliding scale -Most recent hemoglobin A1c was 6.6 in January 2018 History of CVA -Continue home aspirin COPD -Continue home inhalers GERD -Change home omeprazole to pantoprazole BPH -continue home finasteride CODE STATUS: Full DVT prophylaxis: Continue apixaban Disposition: Admit to telemetry. (2) Hypoxia: (3) Syncope: (4) Aortic stenosis: (5) Bradycardia: (6) Hypertension: (7) Diabetes: (8) BPH (benign prostatic hyperplasia): (9) Atrial fibrillation: (10) GERD (gastroesophageal reflux disease): (11) COPD (chronic obstructive pulmonary disease): History of Present Illness Primary Care Provider: Mike West MD Mr. Steele is an 87-year-old gentleman with a history of prior embolic CVA with hemorrhagic transformation, atrial fibrillation, diabetes mellitus, COPD, aortic stenosis, hypertension, GERD who presents to the emergency department due to weakness, shortness of breath and multiple periods of unresponsiveness. The patient's states that Mr. Steele woke up during the night to urinate, and h ad an episode where he was sitting in bed, and lay backwards suddenly, and was unresponsive for a few seconds. She denies any seizure-like activity, such as tonic-clonic movements, loss of urine or stool, biting of the tongue. He then woke up and told her to call the ambulance as he was feeling very short of breath. She states that he has had multiple episodes in the last 2 weeks where he has b een unresponsive for a few seconds. She states this can occur if he is sitting at a table, eating, or even standing. She also states he has had several falls, one when he bent down to pick something up and went "crashing to the ground" and another where he fell backwards onto the couch. She notes that he has had a chronic cough for the past 45 years. She states that it has sounded "more chesty." She has a prescription of amoxicillin at home, and gave him a course of 7 days of twice daily amoxicillin (she is unsure of the dosage). She states that this did improve his cough. Mr. Steele denies any chest pain, and states he is not routinely on oxygen at home. He does admit to decreased appetite, however denies fever or chills. Mr. Steele has no sick contacts, and has not traveled anywhere recently. Of note, he is a prior smoker. He smoked approximately 4 packs of cigarettes a day for approximately 40 years. He states he drinks alcohol occasionally, once a year, denies use of recreational drugs. Allergies Allergy/AdvReac Type Severity Reaction Status Date / Time clonidine Allergy Mild Unknown Verified 04/24/18 02:43 felodipine Allergy Mild Unknown Verified 04/24/18 02:43 Home Medications Home Medications Medication Instructions Recorded Confirmed Type Spiriva with HandiHaler 1 cap INHALATION DAILY 12/21/17 04/24/18 History albuterol sulfate [Ventolin HFA] 1 - 2 puff INHALATION Q4 PRN 12/21/17 04/24/18 History finasteride 5 mg PO DAILY 12/21/17 04/24/18 History acetaminophen [Tylenol Extra 1,000 mg PO HS PRN 04/24/18 04/24/18 History Strength] aspirin 325 mg PO DAILY 04/24/18 04/24/18 History calcium carbonate-vitamin D3 1 tab PO DAILY 04/24/18 04/24/18 History [Calcium 600 + D(3)] furosemide [Lasix] 40 mg PO DAILY 04/24/18 04/24/18 History lactobacillus combination no.4 3,000 mmu cells PO DIRECTED 04/24/18 04/24/18 History [Probiotic] lisinopril 10 mg PO DAILY 04/24/18 04/24/18 History magnesium oxide 400 mg PO BID 04/24/18 04/24/18 History metformin 500 mg PO DAILY 04/24/18 04/24/18 History mexiletine 150 mg PO TID 04/24/18 04/24/18 History multivitamin 1 tab PO DAILY 04/24/18 04/24/18 History mupirocin 1 applic TOPICAL BID 04/24/18 04/24/18 History nitroglycerin 0.4 mg SUBLINGUAL DIRECTED PRN 04/24/18 04/24/18 History omeprazole 40 mg PO DAILY 04/24/18 04/24/18 History potassium chloride [Klor-Con 10] 10 meq PO DAILY 04/24/18 04/24/18 History triamcinolone acetonide 1 applic TOPICAL BID 04/24/18 04/24/18 History Past Med/Surg History Medical History Aortic stenosis H/O: CVA (cerebrovascular accident) Hypertension Diabetes (Chronic) BPH (benign prostatic hyperplasia) (Chronic) Atrial fibrillation (Chronic) GERD (gastroesophageal reflux disease) (Chronic) COPD (chronic obstructive pulmonary disease) (Chronic) H/O: CVA (cerebrovascular accident) Hearing impairment History of stroke Surgical History H/O transurethral resection of prostate Family History Other Family history non-contributory Social History Communication Ability: Effective Beliefs That Will Affect Care: None marital status: Current Living Situation: Spouse Other Information That Helps Us Care for You: No Feels Safe at Home: Yes Safety Concerns: Feels Safe At This Time Smoking Status: Unknown if ever smoked Hx Alcohol Use: No Hx Substance Use: No Review of Systems Constitutional: + fatigue and + weakness; no fever and no chills Respiratory: + cough, + dyspnea and + sputum production; no hemoptysis and no wheezing Cardiovascular: + syncope; no chest pain, no edema and no calf pain Gastrointestinal: no abdominal pain, no nausea, no vomiting and no change in bowel habits Genitourinary (Male): + urinary frequency and + urinary hesitancy Integumentary: no rash and no lesions Physical Exam 2 Vital Signs (Past 24 Hours): Last Vital Signs Temp 36.4 C L 04/24/18 02:02 Pulse 60 04/24/18 03:46 Resp 14 04/24/18 03:46 BP 146/80 H 04/24/18 03:46 Pulse Ox 93 04/24/18 03:16 Constitutional: well developed, well nourished, + well hydrated, + frail appearing, cooperative and comfortable Appears tired, frequently falling asleep Eyes: PERRL, conjunctivae normal, anicteric sclerae ENMT: external ear and nose normal, oropharynx normal Ears: + hearing impairment Respiratory: + cough and able to speak in complete sentences; no respiratory distress Auscultation: + breath sounds absent (Upon auscultation of right side of lungs, clear on left side); no wheezes Gastrointestinal (Abdomen): normal bowel sounds, soft, nontender, no hepatosplenomegaly Skin: b/l erythema of lower extremities, consistent with venous stasis changes. Not tender or warm to touch Neurologic: moves all extremities and awake Speech / Cognition: normal speech Motor/Sensory: no tremor Left upper and lower extremities with 5/5 power. 3/5 power in right upper and lower extremities. Right foot noted to be turned inwards. Supervising Physician Co-Signing Physician Notes Attending addendum: I have physically seen this patient, have supervised the medical residents activities, and agree with the H&P unless as otherwise noted. Assessment and Plan: Recurrent large right pleural effusion-- Consult thoracic surgery Dr. Srivastava, who has performed a thoracentesis in the past. Also consult neurology to help coordinate the issue with anticoagulation and minimizing potential complications related to stroke issues as occurred in the past. Patient has already received his evening Eliquis dose. We will hold the morning dose of Eliquis until assessed by daytime physicians. Tachybradycardia syndrome-- Has been on mexiletine and apixaban related to rate control and stroke prevention for atrial fibrillation. Heart rate has been bradycardic into the low 30s. Patient may benefit from a pacer, with any potential intervention time also needed to be coordinated with minimizing attention adverse effects while off anticoagulation. Remainder of orders and notations as noted. Resident Activity Tracking Resident Involvement: Resident Care Provided Care Provided: Adult Hospital Medicine (1) BPH (benign prostatic hyperplasia) Lower urinary tract symptom detail: urinary hesitancy Lower urinary tract symptom presence: symptoms present Qualified Code(s): N40.1 - Benign prostatic hyperplasia with lower urinary tract symptoms; R39.11 - Hesitancy of micturition (2) Atrial fibrillation Atrial fibrillation type: persistent Qualified Code(s): I48.1 - Persistent atrial fibrillation (3) Syncope Syncope type: unspecified Qualified Code(s): R55 - Syncope and collapse
[2018-04-24] MEDS ORDERED: GLUCOSE 10 TABS/TUBE PO PRN (05:02)
[2018-04-24] MEDS ORDERED: CARBOHYDRATES FOR HYPOGLYCEMIA PO PRN (05:02)
[2018-04-24] MEDS ORDERED: GLUCOSE 40% GEL 15 GM TUBE PO PRN (05:02)
[2018-04-24] MEDS ORDERED: GLUCAGON FOR INJ 1 MG VIAL SQ PRN (05:02)
[2018-04-24] MEDS ORDERED: DEXTROSE 50% 50 ML SYRINGE IV PRN (05:02)
[2018-04-24] MEDS ORDERED: ACETAMINOPHEN 325 MG TAB PO PRN ×2 (05:37→15:47)
[2018-04-24] MEDS ORDERED: ALBUTEROL HFA 8 GM INHALER INH PRN (05:37)
--- NOTE | 2018-04-24 07:13 | CT Scan Report ---
CT head/brain wo con CLINICAL HISTORY: 87 years-old Male presenting with syncope. TECHNIQUE: Multidetector CT imaging of the head was performed without the use of intravenous contrast . IV contrast: None. One or more dose lowering techniques were used consistent with the principles of ALARA (as low as reasonably achievable), including automatic exposure control, mA or kV adjustment t o individual patient size, and/or use of iterative reconstruction. COMPARISON: 03/13/2018 and MR brain from 01/25/2018. CT DOSE (mGy.cm): The estimated cumulative dose is 1133.5. FINDINGS: Arranging Funeral Director topogram: Cardiomegaly and possible right pleural effusion. Underlying pulmonary infiltrates an d/or chronic lung disease. Proportional ventricular and sulcal prominence, likely age-related parenchymal volume loss. No hemorr devan. Periventricular and subcortical white matter hypoattenuation, nonspecific but likely indicative of chronic small vessel ischemic change. Old right cerebellar hemispheric infarct. No acute territor ial infarct. No mass effect or midline shift. No extra-axial fluid collection. Paranasal sinuses and mastoid air cells clear. Calvarium intact. Absent mohegan lenses. IMPRESSION: 1. No significant change compared to the prior study. No acute intracranial abnormality. Electronically signed by: Thierry Chavez M.D. 04/24/2018 7:12 AM
--- NOTE | 2018-04-24 07:30 | CT Scan Report ---
CT ANGIOGRAM OF THE CHEST CLINICAL HISTORY: Syncope. Arrhythmia. Hypoxia. COMPARISON STUDY: Chest CT scans dated 12/21/2017 and 12/07/2006. Chest x-ray dated 02/23/2018. TECHNIQUE: Following the IV administration of 93 cc of Optiray 320, CT angiogram of the chest was per formed from the upper abdomen to the thoracic inlet utilizing the pulmonary embolus protocol. Images are reviewed in the axial, sagittal, and coronal planes. 3-D MIPS images are created and assessed. IV contrast was administered without complication. A dose lowering technique was utilized adhering to the principles of ALARA. The examination is degraded by motion artifact, as well as by streak artifac t from the arms which could not be elevated above the chest. CT DOSE: 1133.85 mGy.cm FINDINGS: Thyroid: Imaged portions of the thyroid gland are normal in size and attenuation. Thoracic aorta: There is advanced atherosclerotic calcification of the thoracic aorta, which is ramirez l in caliber and demonstrates standard 3-vessel arch anatomy. The thoracic aorta is not well opacifie d. Pulmonary vasculature: The pulmonary trunk is normal in caliber. There are no central filling defects identified within the main or lobar pulmonary branches to indicate pulmonary embolus. Evaluation of the segmental and subsegmental branches is severely degraded by motion artifact. Heart: The heart is enlarged and without pericardial effusion. The coronary arteries, mitral annulus, and aortic valve leaflets are densely calcified. Lungs and pleural spaces: Evaluation of the lung parenchyma is degraded by motion artifact. Note that this degrades assessment for small pulmonary lesions. Advanced emphysematous change is noted. There are moderate right and trace left pleural effusions with associated consolidation. Fluid/secretions a re present within the right lower lobe airways. The trachea appears clear. Mediastinum: There is no mediastinal lymphadenopathy. Radha: Clear. Axillae: There is no axillary lymphadenopathy. Upper abdomen: The liver is cirrhotic in morphology and heterogeneous in attenuation. There is nodula rity of the hepatic surface contour. The spleen is mildly enlarged. Skeletal structures: The skeletal structures are osteopenic. There are healed left-sided rib fracture s. Degenerative change and mild hyperkyphosis are noted in the thoracic spine. No lytic or blastic [place] lesions are seen. IMPRESSION: 1. Streak and motion compromised examination. 2. There is no evidence of central pulmonary embolus in the main or lobar pulmonary arteries. Evaluat ion of the peripheral vessels is significant degraded. 3. Cardiomegaly and advanced emphysema. 4. Cirrhosis. 5. Moderate right and trace left pleural effusions with bibasilar consolidation. This likely represen ts atelectasis. Correlate clinically for evidence of superimposed pneumonia. 6. Additional findings as above. Electronically signed by: Sal Grayson M.D. 04/24/2018 7:29 AM
[2018-04-24] MEDS ORDERED: ASPIRIN 325 MG ECTAB PO SCH (09:00)
[2018-04-24] MEDS ORDERED: APIXABAN 5 MG TABLET PO SCH (09:00)
[2018-04-24] MEDS: FUROSEMIDE 40 MG TAB PO SCH (10:16)
[2018-04-24] MEDS: MAGNESIUM OXIDE 400 MG TAB PO SCH ×2 (10:16→20:38)
[2018-04-24] MEDS: POTASSIUM CHLORIDE 10 MEQ TABCR PO SCH (10:16)
[2018-04-24] MEDS: MULTIVITAMIN TAB PO SCH (10:17)
[2018-04-24] MEDS: CALCIUM 600MG + VIT D 400 IU TAB PO SCH (10:17)
[2018-04-24] MEDS: PANTOprazole 40 MG TAB PO SCH (10:17)
[2018-04-24] MEDS: FINASTERIDE 5 MG TAB PO SCH (10:17)
[2018-04-24] MEDS: LISINOPRIL 10 MG TAB PO SCH (10:17)
[2018-04-24] MEDS: TIOTROPIUM BROMIDE 5 PUFF/90 MCG INH INH SCH (10:17)
--- NOTE | 2018-04-24 10:27 | Neurology Consultation ---
Date of Consultation April 24, 2018 Assessment & Plan (1) Syncope: Recurrent syncope per available history. This patient may have an element of vertebrobasilar insufficiency as described on his most recent CT angiogram of the neck and MRA of the head. However, is unclear to what extent VBI may be contributing to his current presentation. He does have right elinor ataxia related to his recent right cerebellar stroke which could be contributing to his falls to some extent as well. He has not had any observed obvious convulsive episodes and his EEG completed this morning was unremarkable. I am, however, unable to completely exclude recurrent stroke, especially in light of his history of atrial fibrillation. He does have some corticospinal findings on examination as well potentially localizing to the left cerebral hemisphere or brainstem and I would recommend an up-to-date brain MRI as the recent CT of the head would not be sensitive enough to exclude an acute infarct. Continue with daily aspirin and Eliquis. Follow-up with cardiology consultation. Will make further recommendations as necessary depending on the results of his MRI. History of Present Illness Reason for Consultation: syncope Requesting Physician: Dr. Gordon Attending Physician: Jigar Riggs MD History of Present Illness The patient is an 87-year-old male who was known to me from a previous hospitalization in January for a hemorrhagic right cerebellar infarct. He has a history of atrial fibrillation and cardioembolic stroke with his most recent stroke occurring while his anticoagulation was on hold for a thoracentesis to address a pleural effusion related to congestive heart failure. The patient seems to have a poor recollection the events leading to his most recent hospitalization. The admission record indicates that he has been experiencing recurrent episodes of dizziness/syncope according to his spouse. He had an episode just prior to admission that occurred while sitting on the edge of his bed, while attempting to stand up. He complained of some associated shortness of breath, no headache.Again, the patient is an unreliable historian. The admission history indicates that he has been having multiple episodes of brief unresponsiveness as well as numerous falls. It does not appears if he has had any obvious seizure activity, however. There is some additional concern regarding a history of bradycardia with Cardiology potentially suggesting place ment of a pacemaker depending on his clinical status. Cardiology has been consulted as well. While at bedside, the patient denies any particular neurologic symptoms at this time. He denies headache, vision change, vertigo, weakness, or sensory loss. He does admit that he continues to have some mild difficulty with weakness/incoordination affecting the right arm and leg ever since his most recent stroke. He was found to have a large right sided pleural effusion at the time of this most recent presentation. After reviewing this patient's case I did order an EEG which was completed this morning. Results are as described below. Allergies Allergy/AdvReac Type Severity Reaction Status Date / Time clonidine Allergy Mild Unknown Verified 04/24/18 02:43 felodipine Allergy Mild Unknown Verified 04/24/18 02:43 Home Medications Home Medications Medication Instructions Recorded Confirmed Type Spiriva with HandiHaler 1 cap INHALATION DAILY 12/21/17 04/24/18 History albuterol sulfate [Ventolin HFA] 1 - 2 puff INHALATION Q4 PRN 12/21/17 04/24/18 History finasteride 5 mg PO DAILY 12/21/17 04/24/18 History acetaminophen [Tylenol Extra 1,000 mg PO HS PRN 04/24/18 04/24/18 History Strength] aspirin 325 mg PO DAILY 04/24/18 04/24/18 History calcium carbonate-vitamin D3 1 tab PO DAILY 04/24/18 04/24/18 History [Calcium 600 + D(3)] furosemide [Lasix] 40 mg PO DAILY 04/24/18 04/24/18 History lactobacillus combination no.4 3,000 mmu cells PO DIRECTED 04/24/18 04/24/18 History [Probiotic] lisinopril 10 mg PO DAILY 04/24/18 04/24/18 History magnesium oxide 400 mg PO BID 04/24/18 04/24/18 History metformin 500 mg PO DAILY 04/24/18 04/24/18 History mexiletine 150 mg PO TID 04/24/18 04/24/18 History multivitamin 1 tab PO DAILY 04/24/18 04/24/18 History mupirocin 1 applic TOPICAL BID 04/24/18 04/24/18 History nitroglycerin 0.4 mg SUBLINGUAL DIRECTED PRN 04/24/18 04/24/18 History omeprazole 40 mg PO DAILY 04/24/18 04/24/18 History potassium chloride [Klor-Con 10] 10 meq PO DAILY 04/24/18 04/24/18 History triamcinolone acetonide 1 applic TOPICAL BID 04/24/18 04/24/18 History Patient History Medical History Aortic stenosis H/O: CVA (cerebrovascular accident) Hypertension Diabetes (Chronic) BPH (benign prostatic hyperplasia) (Chronic) Atrial fibrillation (Chronic) GERD (gastroesophageal reflux disease) (Chronic) COPD (chronic obstructive pulmonary disease) (Chronic) H/O: CVA (cerebrovascular accident) Hearing impairment History of stroke Surgical History H/O transurethral resection of prostate Family History Other Family history non-contributory Social History Preferred Language: Romansh Communication Ability: Effective Beliefs That Will Affect Care: None Current Living Situation: Spouse Other Information That Helps Us Care for You: No Feels Safe at Home: Yes Safety Concerns: Feels Safe At This Time Smoking Status: Unknown if ever smoked Hx Alcohol Use: No Hx Substance Use: No Review of Systems Constitutional: no fever and no chills Eyes: no blind spots and no diplopia Ear, Nose, Mouth, Throat: + hearing loss; no ear pain Respiratory: + dyspnea Cardiovascular: no chest pain and no palpitations Gastrointestinal: no abdominal pain and no vomiting Genitourinary (Male): no dysuria Musculoskeletal: no myalgia Integumentary: no rash and no lesions Neurologic: as per Subjective / HPI Psychiatric: no depression and no anxiety Hematologic / Lymphatic: no easy bleeding Physical Exam Vital Signs (Past 24 Hours): Last Vital Signs Temp 36.3 C L 04/24/18 07:08 Pulse 53 L 04/24/18 07:08 Resp 16 04/24/18 07:08 BP 164/72 H 04/24/18 07:08 Pulse Ox 98 04/24/18 07:08 Physical Exam: The patient is a well-developed well-nourished elderly male. He is alert and oriented to person and place only. Recent memory impaired. Remote memory intact. Attention intact. Concentration impaired. Patient provides limited spontaneous speech although he is able to name objects and r epeat phrases. Patient exhibits an age-appropriate fund of knowledge in terms of vocabulary. Visual caballero full to confrontation. Visual acuity normal. Pupils equal round react to light and accommodation. Eye movements normal. There is no nystagmus. Facial sensation intact. There is perhaps some mild flattening of the left nasolabial fold. Hearing diminished to finger rub bilaterally. Palate elevates to midline. Shoulder shrug intact. Tongue protrudes to midline. Sensation intact to all modalities in all 4 limbs. Deep tendon reflexes are increased for the right arm and leg, normoactive on the left. Right plantar response upgoing, left plantar response equivocal. Patient exhibits dysdiadochokinesia for the right arm, not for the left. He exhibits dysmetria of [id number] for the right arm and leg as well with an element of past-pointing and intention tremor. Ophthalmoscopic examination reveals normal- appearing optic discs and posterior segments. No papilledema or hemorrhages. Carotid pulses normal bilaterally, no bruits to auscultation. Gait and station cannot be tested due to safety concerns. Patient exhibits normal muscle strength and tone for all 4 limbs. No atrophy. No resting tremors or other abnormal movements appreciated. Results & Data Diagnostic Findings A CT of the head revealed atrophy and chronic small vessel ischemic change. There is evidence of an old right cerebellar infarct. No evidence for acute process. I reviewed the images as well as the radiologist's interpretation of this test. An electroencephalogram was also completed this morning. No epileptiform abnormalities. Normal background rhythm. A CT angiogram of the neck completed during his previous admission on January 25, 2018 revealed a 40 percent stenosis of the proximal left vertebral artery. Mild narrowing of the distal right vertebral artery. And a 40 percent stenosis at the petrous segment of the right internal carotid artery. An MRA of the head completed on January 25, 2018 was limited due to motion artifact. There is no aneurysm. There is decreased flow within the right verte bral artery. An echocardiogram completed January 25, 2018 was limited although no cardioembolic source appreciated. (1) Syncope Syncope type: unspecified Qualified Code(s): R55 - Syncope and collapse
[2018-04-24] MEDS: INSULIN ASPART 100 UNITS/ML 3 ML PEN SC SCH ×4 (11:28→20:39)
--- NOTE | 2018-04-24 11:53 | Cardiology Consultation ---
Date of Consultation April 24, 2018 Assessment & Plan (1) Syncope: Patient presented with what appears to be multiple syncopal or unresponsive events over the last 2 weeks. The etiology for these events is unclear. He has permanent atrial fibrillation and is noted to be bradycardic with rates in the 50s this admission; this is off rate control therapy. He could become more bradycardic at times, leading to the syncopal episodes. He also has a history of ventricular tachycardia noted on telemetry monitoring during prior admissions; the cause of his syncope could therefore be tachycardic in nature. It is therefore recommended that he undergo further monitoring in order to determine the best course of action, and will tentatively plan loop recorder implantation today. The patient has been made NPO, and Dr. Willams will be in to see the patient later today to make the final decision. (2) Ventricular tachycardia: This was noted on telemetry monitoring during his January hospitalization. Given his recent syncope, will tentatively plan loop recorder implantation for further evaluation. Will not initiate beta gini therapy at this time given his bradycardia. He does have preserved LV systolic function by most recent echo in January 2018. (3) Atrial fibrillation: He has permanent atrial fibrillation and has been bradycardic recently. His diltiazem, metoprolol, and digoxin were discontinued during a January admission for this reason. He is in the 50s currently, which is not slow enough to cause his recent syncopal episodes, but he may become more bradycardic at times. Will therefore tentatively plan loop recorder implantation later today to see if he needs a pacemaker. Continue Eliquis for thromboembolic prophylaxis; he does have a history of CVA when anticoagulation therapy has been held. (4) Aortic stenosis: Moderate by echo in January. This should not be causing his symptoms. Continue to monitor over time. Supervising Physician Co-Signing Physician Notes Patient seen and examined, case reviewed with [place]. Agree with above. The cause of his syncope is not clear, it could be due to bradycardia but we have not seen anything warranting pacemaker implantation. Could also be a tachycardia or simply hypotension. I think we need further documentation of an arrhythmia before implanting a device. I discussed loop recorder implantation with him including the indications, procedure, risks and alternatives and he understands and agrees to proceed. Consent obtained. He will not need sedation. History of Present Illness Reason for Consultation: Bradycardia, syncope Requesting Physician: Dr. Gordon History of Present Illness Mr. 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 The patient's recent history has been complex. He was admitted to [facility] in early December with pneumonia and rib fracture secondary to a fall. He was readmitted in early January with progressive shortness of breath, and was found to have a right pleural effusion for which he underwent thoracentesis. During this admission, he was noted to be bradycardic, and his metoprolol, diltiazem, and digoxin were discontinued. He was noted to have wide complex rhythms during the admission, but beta gini was unable to be restarted given his bradycardia. Echo during admission demonstrated preserved LV systolic function and moderate aortic stenosis. He was discharged home but was readmitted the following day with acute right-sided cerebellar stroke with hemorrhagic conversion. The cause of the CVA was felt to be due to the fact that his anticoagulation therapy was held for a brief period of time for the thoracentesis. His Eliquis has since been restarted. Patient then presented to the ED early this morning with complaints of shortness of breath and several syncopal/unresponsive episodes at home over the last couple of weeks. The patient is a rather poor historian, so much of the history was obtained via records. The patient was reportedly sitting at the edge of the bed early this morning and had a syncopal or unresponsive event, which was witnessed by his . He had reportedly had similar episodes over the previous 2 weeks. The patient noted increased shortness of breath with the syncopal event this morning, and he was therefore brought to the hospital via EMS. Patient denies chest pain or palpitations. He reports intermittent lower extremity edema. He denies abnormal bleeding such as melena, hematochezia, or hematuria. Review of Systems: As noted in HPI. All other 10 point ROS are reviewed and otherwise negative at this time. Family history: Father of cancer at age 32. Mother at 89 of CAD. Sister at 80 of cancer and brother at 84 of cancer. Social history: and lives with . He started smoking around age 8 and quit in 1982. No regular alcohol use. He is retired from the [employer] business and had some exposure to [employer] chemicals. Allergies Allergy/AdvReac Type Severity Reaction Status Date / Time clonidine Allergy Mild Unknown Verified 04/24/18 02:43 felodipine Allergy Mild Unknown Verified 04/24/18 02:43 Home Medications Home Medications Medication Instructions Recorded Confirmed Type Spiriva with HandiHaler 1 cap INHALATION DAILY 12/21/17 04/24/18 History albuterol sulfate [Ventolin HFA] 1 - 2 puff INHALATION Q4 PRN 12/21/17 04/24/18 History finasteride 5 mg PO DAILY 12/21/17 04/24/18 History acetaminophen [Tylenol Extra 1,000 mg PO HS PRN 04/24/18 04/24/18 History Strength] aspirin 325 mg PO DAILY 04/24/18 04/24/18 History calcium carbonate-vitamin D3 1 tab PO DAILY 04/24/18 04/24/18 History [Calcium 600 + D(3)] furosemide [Lasix] 40 mg PO DAILY 04/24/18 04/24/18 History lactobacillus combination no.4 3,000 mmu cells PO DIRECTED 04/24/18 04/24/18 History [Probiotic] lisinopril 10 mg PO DAILY 04/24/18 04/24/18 History magnesium oxide 400 mg PO BID 04/24/18 04/24/18 History metformin 500 mg PO DAILY 04/24/18 04/24/18 History mexiletine 150 mg PO TID 04/24/18 04/24/18 History multivitamin 1 tab PO DAILY 04/24/18 04/24/18 History mupirocin 1 applic TOPICAL BID 04/24/18 04/24/18 History nitroglycerin 0.4 mg SUBLINGUAL DIRECTED PRN 04/24/18 04/24/18 History omeprazole 40 mg PO DAILY 04/24/18 04/24/18 History potassium chloride [Klor-Con 10] 10 meq PO DAILY 04/24/18 04/24/18 History triamcinolone acetonide 1 applic TOPICAL BID 03/08/19 03/08/19 History Patient History Medical History Aortic stenosis H/O: CVA (cerebrovascular accident) Hypertension Diabetes (Chronic) BPH (benign prostatic hyperplasia) (Chronic) Atrial fibrillation (Chronic) GERD (gastroesophageal reflux disease) (Chronic) COPD (chronic obstructive pulmonary disease) (Chronic) H/O: CVA (cerebrovascular accident) Hearing impairment History of stroke Surgical History H/O transurethral resection of prostate Family History Other Family history non-contributory Social History Communication Ability: Effective Beliefs That Will Affect Care: None marital status: Current Living Situation: Spouse Other Information That Helps Us Care for You: No Feels Safe at Home: Yes Safety Concerns: Feels Safe At This Time Smoking Status: Unknown if ever smoked Hx Alcohol Use: No Hx Substance Use: No Physical Exam Vital Signs (Past 24 Hours): Last Vital Signs Temp 36.3 C L 04/24/18 07:08 Pulse 53 L 04/24/18 07:08 Resp 16 04/24/18 07:08 BP 164/72 H 04/24/18 07:08 Pulse Ox 98 04/24/18 07:08 Constitutional: Alert, oriented, in no acute distress HEENT: Head is atraumatic and normocephalic. EOMs intact. Sclera anicteric. Face is symmetric. No perioral cyanosis. Mucous membranes moist. Neck: Supple, no JVD Pulmonary: Normal respiratory effort, decreased breath sounds, no wheezing Cardiac: Distant heart sounds, irregularly irregular, normal S1 and S2, no gallops, no rubs, no obvious murmurs Extremities: 1+ ankle edema bilaterally. No clubbing or cyanosis. Pulses intact Abdomen: Normal bowel sounds, soft, non-tender, no abdominal mass palpated Skin: Chronic venous stasis skin changes of bilateral lower extremities. No rash Neurological: Oriented to person, place, and time Results & Data Laboratory Results Laboratory Results WBC 7.26 K/uL (4.8-10.8) 04/24/18 02:05 RBC 4.84 M/uL (4.7-6.1) 04/24/18 02:05 Hgb 14.0 g/dL (14.0-18.0) 04/24/18 02:05 POC Hgb 14.6 g/dl (14.0-18.0) 04/24/18 02:09 Hct 41.9 % (42-52) L 04/24/18 02:05 POC Hct 43 % (42-52) 04/24/18 02:09 MCV 86.6 fL (80-100) 04/24/18 02:05 MCH 28.9 pg (25-34) 04/24/18 02:05 MCHC 33.4 g/dL (32-36) 04/24/18 02:05 RDW Std Deviation 47.9 fL (36.4-46.3) H 04/24/18 02:05 RDW Coeff of Dolores 15.0 % (11.5-14.5) H 04/24/18 02:05 Plt Count 167 K/uL (130-400) 04/24/18 02:05 MPV 10.4 fL (7.4-10.4) 04/24/18 02:05 Immature Gran % (Auto) 0.3 % 04/24/18 02:05 Neut % (Auto) 69.7 % 04/24/18 02:05 Lymph % (Auto) 18.2 % 04/24/18 02:05 Warrick % (Auto) 9.9 % 04/24/18 02:05 Eos % (Auto) 1.5 % 04/24/18 02:05 Baso % (Auto) 0.4 % 04/24/18 02:05 Immature Gran # (Auto) 0.02 K/uL (0.00-0.02) 04/24/18 02:05 Neut # (Auto) 5.06 K/uL (1.4-6.5) 04/24/18 02:05 Lymph # (Auto) 1.32 K/uL (1.2-3.4) 04/24/18 02:05 Warrick # (Auto) 0.72 K/uL (0.11-0.59) H 04/24/18 02:05 Eos # (Auto) 0.11 K/uL (0-0.5) 04/24/18 02:05 Baso # (Auto) 0.03 K/uL (0-0.2) 04/24/18 02:05 PT 12.0 Seconds (9.0-12.0) 04/24/18 02:05 INR 1.2 (0.9-1.1) H 04/24/18 02:05 POC Sodium 134 mEq/L (135-144) L 04/24/18 02:09 Sodium 132 mmol/L (136-145) L 04/24/18 02:05 POC Potassium 3.8 mEq/L (3.3-5.0) 04/24/18 02:09 Potassium 3.9 mmol/L (3.5-5.1) 04/24/18 02:05 POC Chloride 94 mEq/L (101-112) L 04/24/18 02:09 Chloride 97 mmol/L (98-107) L 04/24/18 02:05 Carbon Dioxide 30 mmol/L (21-32) 04/24/18 02:05 POC Total CO2 27 mEq/l (24-31) 04/24/18 02:09 Anion Gap 5.0 (3-11) 04/24/18 02:05 POC Anion Gap 17.0 mmol/L (16-25) 04/24/18 02:09 POC BUN 17 mg/dl (7-18) 04/24/18 02:09 BUN 17 mg/dl (7-18) 04/24/18 02:05 Creatinine 0.98 mg/dl (0.6-1.4) 04/24/18 02:05 POC Creatinine 0.9 mg/dl (0.6-1.3) 04/24/18 02:09 Est Cr Clr Drug Dosing 60.7 ml/min 04/24/18 02:05 Est GFR ( Amer) 80.6 04/24/18 02:05 Est GFR (Non-Af Amer) 69.5 04/24/18 02:05 BUN/Creatinine Ratio 17.7 (10-20) 04/24/18 02:05 Glucose 136 mg/dl (70-99) H 04/24/18 02:05 POC Glucose 147 (70-99) H 04/24/18 11:56 POC Glucose (other) 142 mg/dl (70-99) H 04/24/18 02:09 Calcium 8.5 mg/dl (8.5-10.1) 04/24/18 02:05 POC Ioniz Calcium Sreedhar 1.16 mmol/l (1.12-1.32) 04/24/18 02:09 Magnesium 1.7 mg/dl (1.8-2.4) L 04/24/18 02:05 Total Bilirubin 0.8 mg/dl (0.2-1) 04/24/18 02:05 Direct Bilirubin 0.3 mg/dl (0-0.2) H 04/24/18 02:05 AST 21 U/L (15-37) 04/24/18 02:05 ALT 24 U/L (12-78) 04/24/18 02:05 Alkaline Phosphatase 158 U/L (45-117) H 04/24/18 02:05 Troponin I 0.027 ng/ml (0-0.045) 04/24/18 02:05 Total Protein 7.1 gm/dl (6.4-8.2) 04/24/18 02:05 Albumin 3.4 gm/dl (3.4-5.0) 04/24/18 02:[address]: No significant change compared to the prior study. No acute intracranial abnormality. Chest CTA: 1. Streak and motion compromised examination. 2. There is no evidence of central pulmonary embolus in the main or lobar pulmonary arteries. Evaluation of the peripheral vessels is significant degraded. 3. Cardiomegaly and advanced emphysema. 4. Cirrhosis. 5. Moderate right and trace left pleural effusions with bibasilar consolidation. This likely represents atelectasis. Correlate clinically for evidence of superim posed pneumonia. ECG: Atrial fibrillation with slow ventricular response. 55 bpm. RBBB. Telemetry: Atrial fibrillation vs junctional rhythm with rates in the 50s. (1) Atrial fibrillation Atrial fibrillation type: persistent Qualified Code(s): I48.1 - Persistent atrial fibrillation (2) Syncope Syncope type: unspecified Qualified Code(s): R55 - Syncope and collapse
--- NOTE | 2018-04-24 12:21 | Procedure Note ---
EEG Procedure Note Date of Service April 24, 2018 Start / End Times Start Time: 8:29 AM End Time: 8:49 AM Referring Physician Jhonny Lorenzana History This is a 87-year-old male with syncope. EEG for further evaluation possible seizure etiology. Home Medication List Home Medications Medication Instructions Recorded Confirmed Type Spiriva with HandiHaler 1 cap INHALATION DAILY 12/21/17 04/24/18 History albuterol sulfate [Ventolin HFA] 1 - 2 puff INHALATION Q4 PRN 12/21/17 04/24/18 History finasteride 5 mg PO DAILY 12/21/17 04/24/18 History acetaminophen [Tylenol Extra 1,000 mg PO HS PRN 04/24/18 04/24/18 History Strength] aspirin 325 mg PO DAILY 04/24/18 04/24/18 History calcium carbonate-vitamin D3 1 tab PO DAILY 04/24/18 04/24/18 History [Calcium 600 + D(3)] furosemide [Lasix] 40 mg PO DAILY 04/24/18 04/24/18 History lactobacillus combination no.4 3,000 mmu cells PO DIRECTED 04/24/18 04/24/18 History [Probiotic] lisinopril 10 mg PO DAILY 04/24/18 04/24/18 History magnesium oxide 400 mg PO BID 04/24/18 04/24/18 History metformin 500 mg PO DAILY 04/24/18 04/24/18 History mexiletine 150 mg PO TID 04/24/18 04/24/18 History multivitamin 1 tab PO DAILY 04/24/18 04/24/18 History mupirocin 1 applic TOPICAL BID 04/24/18 04/24/18 History nitroglycerin 0.4 mg SUBLINGUAL DIRECTED PRN 04/24/18 04/24/18 History omeprazole 40 mg PO DAILY 04/24/18 04/24/18 History potassium chloride [Klor-Con 10] 10 meq PO DAILY 04/24/18 04/24/18 History triamcinolone acetonide 1 applic TOPICAL BID 04/24/18 04/24/18 History Inpatient Medication List Apixaban (Eliquis) 5 mg PO BID DAVID Stop: 05/24/18 08:59 Last Admin: 04/24/18 10:17 Dose: 5 mg Documented by: [id number] Aspirin (Ecotrin) 325 mg PO DAILY DAVID Stop: 05/24/18 08:59 Last Admin: 04/24/18 10:17 Dose: 325 mg Documented by: [id number] Finasteride (Proscar) 5 mg PO DAILY DAVID Stop: 05/24/18 08:59 Last Admin: 04/24/18 10:17 Dose: 5 mg Documented by: [id number] Furosemide (Lasix) 40 mg PO DAILY DAVID Stop: 05/24/18 08:59 Last Admin: 04/24/18 10:16 Dose: 40 mg Documented by: [id number] Insulin Aspart (Novolog Flexpen) 0 units SC ACHS DAVID Stop: 05/24/18 07:29 Last Admin: 04/24/18 11:28 Dose: Not Given Documented by: [id number] Cosigned by: [id number] Ioversol (Optiray 320 100ml) 100 ml IV ONCE PRN PRN Reason: Interaction Checking Stop: 04/28/18 02:34 Last Admin: 04/24/18 02:35 Dose: 93 ml Documented by: [id number] Lisinopril (Zestril) 10 mg PO DAILY DAVID Stop: 05/24/18 08:59 Last Admin: 04/24/18 10:17 Dose: 10 mg Documented by: [id number] Magnesium Oxide (Mag-Ox) 400 mg PO BID DAVID Stop: 05/24/18 08:59 Last Admin: 04/24/18 10:16 Dose: 400 mg Documented by: [id number] Miscellaneous (Order Awaiting Action) 1 ea N/A QS DAVID Stop: 05/24/18 07:59 Last Admin: 04/24/18 07:37 Dose: Not Given Documented by: [id number] Multivitamins (Multivitamin Tab) 1 tab PO DAILY DAVID Stop: 05/24/18 08:59 Last Admin: 04/24/18 10:17 Dose: 1 tab Documented by: [id number] Multivitamins/Minerals (Caltrate Plus) 1 tab PO DAILY DAVID Stop: 05/24/18 08:59 Last Admin: 04/24/18 10:17 Dose: 1 tab Documented by: [id number] Pantoprazole Sodium (Protonix) 40 mg PO QAM DAVID Stop: 05/24/18 08:59 Last Admin: 04/24/18 10:17 Dose: 40 mg Documented by: [id number] Potassium Chloride (Klor-Con M10) 10 meq PO DAILY [facility] Stop: 05/24/18 08:59 Last Admin: 04/24/18 10:16 Dose: 10 meq Documented by: [id number] Tiotropium [place] (Spiriva) 1 puffs INH DAILY DAVID Stop: 05/24/18 08:59 Last Admin: 04/24/18 10:17 Dose: 1 puffs Documented by: [id number] Description This is a 21 electrode EEG with a single channel dedicated to limited EKG. The electrodes were placed in accordance with the International 10-20 system. At the start of the recording the patient was in an awake state. Background was well organized and composed of symmetric mixed alpha and beta frequencies. There was a symmetric well-formed moderate amplitude up to 8.5 Hz posterior dominant rhythm that was reactive to eye opening and closure. Hyperventilation was not done. Intermittent photic stimulation at various frequencies produced no abnormalities. Sleep was indicated by vertex waves and symmetric sleep spindles. Interpretation This is a normal awake and asleep routine EEG. There was no electrographic seizures or epileptiform discharges. Clinical Correlation A normal EEG does not rule out epilepsy if there is a strong clinical suspicion.
[2018-04-24] MEDS ORDERED: LIDOCAINE HCL 1% 20 ML VIAL ONE (14:29)
[2018-04-24] MEDS ORDERED: CEFAZOLIN 250 MG/ML 1 GM VIAL ONE (14:53)
--- NOTE | 2018-04-24 15:46 | Operative Report ---
Post Operative Report Pre & Post Diagnosis Operation Date: 04/24/18 15:00 Preoperative diagnosis: Syncope Postoperative diagnosis: Same Procedure Operation Date: 04/24/18 15:00 Actual Procedures p Implant Cardiac Event Recorder - Frederick Willams MD Surgeon Frederick Willams MD [employer] None Estimated Blood Loss 2 Findings Consistent with Post-Op Diagnosis Specimens None Complications none Disposition Accompanied Patient To Recovery: No Disposition: PCU Description of Procedure After obtaining informed consent for the procedure, the patient was brought to the laboratory having had nothing by mouth since breakfast. The patient was prepped and draped in the standard sterile manner for a loop recorder implantation. An area at the fourth left intercostal space and 1 cm left of the left sternal border was infiltrated with 1% lidocaine local anesthetic and a 0.5 cm incision was made through the skin. Using the loop recorder insertion tool the loop recorder was inserted through the incision at a 45 downward and leftward angle. The incision was closed with a subcutaneous continuous closure of 4-0 Vicryl followed by a running subcuticular skin closure of 4-0 Vicryl. Bacitracin ointment was placed on the incision. A dressing was applied. I attest to the content of the Intraoperative Record and any orders documented therein. Any exceptions are noted below.
--- NOTE | 2018-04-24 16:12 | History & Physical Bridge Note ---
Date of Service April 24, 2018 History & Physical Bridge Note I have seen and examined the patient today. Busy day with implanted loop recorder and EEG (no seizure activity). Plan for MRI. reports his spells are without warning and that he is out for 5-10 seconds, then regains consciousness without any post-ictal confusion. This all points towards a cardiac cause. Presently, he is comfortable in bed. Will await results of MRI and go from there.
[2018-04-24 16:28] LABS: Appearance Urine Clear (Clear); Bilirubin Urine Negative (Negative); Blood Urine Negative (Negative); Color Urine Yellow; Glucose Urine UA Negative (Negative); Ketones Urine Negative (Negative); Leukocyte Esterase Urine Negative (Negative); Nitrite Urine Negative (Negative); Protein Urine Negative (Negative); Specific Gravity Urine 1.014 (1.000-1.030); Urobilinogen Urine Negative (Negative); pH Urine 7.5 (4.5-7.5)
[2018-04-24] MEDS ORDERED: GADOBUTROL 65ML VIAL IV PRN (18:45)
--- NOTE | 2018-04-24 18:57 | Magnetic Resonance Report ---
MR brain seizure wo/w con CLINICAL HISTORY: Stroke, recurrent syncope mental status change COMPARISON STUDY: 01/25/2018. CT examination 05/04/2018 TECHNIQUE: Utilizing a 1.5 Lety magnet and dedicated coil, multiplanar, multiecho imaging of the br ain was performed pre and postcontrast administration. IV administration of 8 mL of Gadavist contras t was uneventful. Thin cut coronal T2 imaging was performed according to seizure protocol. FINDINGS: Severely limited exam due to considerable patient motion. No evidence for an acute ischemic event based on diffusion images. Coronal FLAIR images demonstrate an old inferior right cerebellar i nfarct. Multiple foci of increased signal are noted within the periventricular and deep white matter regions. This is slightly progressive compared to the prior exam. The ventricular system shows mild c ompensatory prominence. There are findings of generalized atrophy and chronic small vessel change. IMPRESSION: 1. Severely compromised exam due to patient motion. 2. No evidence for an acute ischemic event. 3. Findings of several old regions of infarction, combined with mildly progressive components of coal carrier elijah small vessel change throughout both cerebral hemispheres. 4. Findings of generalized atrophy The above report was generated using voice recognition software. It may contain grammatical, syntax or spelling errors. Electronically signed by: Romeo Thompson M.D. 04/24/2018 6:56 PM
[2018-04-24] MEDS: MEXILETINE HCL 150 MG PO SCH (20:37)
--- NOTE | 2018-04-24 23:29 | Consultation Report ---
DATE OF CONSULTATION: 04/24/2018 REASON FOR CONSULTATION: Recurrent right pleural effusion. HISTORY OF PRESENT ILLNESS: Alexandre Steele is an 87-year-old male that I met back in January when he presented with an enlarging right pleural effusion. On 01/21/2018, I performed a thoracentesis under ultrasound guidance and drained 1500 mL of a light yellow fluid from his right chest. He felt much better after that. The fluid was a transudate and the cytology was benign. I saw the patient later with his in the office after he had been discharged and he looked better to me. He did not really accumulate very quickly. I was quite pleased with that. He was readmitted to the hospital early this morning with an episode of unresponsiveness and has been following. He has recently suffered embolic cerebrovascular accident that became hemorrhagic when he was anticoagulated. He has multiple issues and I was asked to see him when it was noted that he had a large right pleural effusion. I had a long talk with the patient. He does remember seeing me in January. I had a long talk with his and his was quite anxious to have strain his fluid again because he improved so much back in January. PAST MEDICAL HISTORY: 1. Recent cerebrovascular accident. 2. Diabetes mellitus. 3. Hypertension. 4. Chronic atrial fibrillation. 5. Gastroesophageal reflux disease. 6. Chronic obstructive pulmonary disease. 7. Benign prostatic hypertrophy. 8. Aortic stenosis. 9. Syncope. 10. Diabetes mellitus. PAST SURGICAL HISTORY: Transurethral resection of the prostate. MEDICATIONS: Please see chart. ALLERGIES: FELODIPINE AND CLONIDINE. SOCIAL HISTORY: The patient lives with of many years. The patient smoked cigarettes in the past, but quit over 45 years ago. Physically active until his stroke. 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 His cares for him, especially since the stroke. She is younger. FAMILY MEDICAL HISTORY: The patient's father when he was in 30s, a cancer of unknown origin and his mother lived to be quite elderly. He has 2 children who are healthy. REVIEW OF SYSTEMS: The patient has fallen several times since his stroke. He has also had periods, where he will not wake up. He is unresponsive for a short period of time. He has also complained of marked shortness of breath. He has also had a chronic cough for many, many years, although she thinks it has gotten worse. His cough did improve recently with amoxicillin. Denies palpitations or chest pain. He has not been eating as well as his thinks he should. The rest of his review of systems is unremarkable. PHYSICAL EXAMINATION: GENERAL: Tall, thin male who is awake and alert. He is 6 feet 4 inches tall and weighs about 170 pounds. HEENT: Extraocular movements are intact. Sclerae are anicteric but pale. He is able to answer questions. I did wake him up. He does have decreased hearing acuity. He has no neck vein distention. He has no supraclavicular or cervical lymphadenopathy. I detect no carotid bruits. He has markedly decreased breath sounds on the right at the base. HEART: He has a regular rate and rhythm of his heart. ABDOMEN: Soft, nontender. He has some venous stasis changes with very mild erythema of his lower extremities, but he has a trace to 1+ edema in the pretibial area. He does move all of his extremities to command. ASSESSMENT AND PLAN: Recurrent large right pleural effusion. I believe this is contributing to some of his symptoms. His , as stated above, was quite eager for me to do a thoracentesis because he improved so much. We will get this set up for tomorrow morning.
[2018-04-25 06:25] LABS: Hematocrit (blood only) 41.5 % (42-52); Hemoglobin 14.1 g/dL (14.0-18.0); Mean Corpuscular Volume 87.2 fL (80-100); Mean Platelet Volume 10.7 fL (7.4-10.4); Platelet Count 170 K/uL (130-400); RDW Coefficient of Variation 15.1 % (11.5-14.5); RDW Standard Deviation 48.2 fL (36.4-46.3); Red Blood Count 4.76 M/uL (4.7-6.1); White Blood Count 7.21 K/uL (4.8-10.8)
[2018-04-25 06:39] LABS: BUN Creatinine Ratio 15.3 (10-20); Calcium 8.6 mg/dl (8.5-10.1); Creatinine Clr Calc Pharmacy 56.3 ml/min; Est GFR (African American) 78.6; Est GFR (Non-African American) 67.8; Magnesium 1.8 mg/dl (1.8-2.4); Potassium 4.2 mmol/L (3.5-5.1)
[2018-04-25] MEDS: INSULIN ASPART 100 UNITS/ML 3 ML PEN SC SCH ×2 (08:22→12:26)
[2018-04-25] MEDS: FUROSEMIDE 40 MG TAB PO SCH (08:24)
[2018-04-25] MEDS: CALCIUM 600MG + VIT D 400 IU TAB PO SCH (08:25)
[2018-04-25] MEDS: PANTOprazole 40 MG TAB PO SCH (08:25)
[2018-04-25] MEDS: MULTIVITAMIN TAB PO SCH (08:25)
[2018-04-25] MEDS: FINASTERIDE 5 MG TAB PO SCH (08:26)
[2018-04-25] MEDS: LISINOPRIL 10 MG TAB PO SCH (08:26)
[2018-04-25] MEDS: MAGNESIUM OXIDE 400 MG TAB PO SCH (08:27)
[2018-04-25] MEDS: MEXILETINE HCL 150 MG PO SCH ×2 (08:28→14:35)
[2018-04-25] MEDS: POTASSIUM CHLORIDE 10 MEQ TABCR PO SCH (08:29)
[2018-04-25] MEDS: TIOTROPIUM BROMIDE 5 PUFF/90 MCG INH INH SCH (08:30)
--- NOTE | 2018-04-25 09:59 | Cardiology Progress Note ---
Date of Service April 25, 2018 Assessment & Plan (1) Syncope: Patient presented with what appears to be multiple syncopal or unresponsive events over the last 2 weeks. The etiology for these events is unclear. He has permanent atrial fibrillation and is noted to be bradycardic with rates in the 50s this admission; this is off rate control therapy. He could become more bradycardic at times, leading to the syncopal episodes. He also has a history of ventricular tachycardia noted on telemetry monitoring during prior admissions; the cause of his syncope could therefore be tachycardic in nature. He now has a loop recorder in place so hopefully we can tell. If we do not see any dramatic heart rate change hopefully he can activate the recorder when he has symptoms and we can see if it is a relative bradycardia. (2) Ventricular tachycardia: This was noted on telemetry monitoring during his January hospitalization. I think some of his current wide-complex rhythm could be aberrant conduction. We should see this on event monitoring if it is a clinical issue. He does have preserved LV systolic function by most recent echo in January 2018. (3) Atrial fibrillation: He has permanent atrial fibrillation and has been bradycardic recently. His diltiazem, metoprolol, and digoxin were discontinued during a January admission for this reason. He is rate controlled currently, not slow enough to cause his recent syncopal episodes, but he may become more bradycardic at times. Continue Eliquis for thromboembolic prophylaxis; he does have a history of CVA when anticoagulation therapy has been held. I did not hold his anticoagulant for placement of the loop recorder yesterday. (4) Aortic stenosis: Moderate by echo in January. This should not be causing his symptoms. Continue to monitor over time. Subjective He has no complaints today, he has had no further cardiovascular symptoms and he has no discomfort at his loop recorder site Physical Exam Vital Signs (Past 24 Hours): Last Vital Signs Temp 36.4 C L 04/25/18 07:06 Pulse 60 04/25/18 09:04 Resp 18 04/25/18 07:06 BP 149/66 H 04/25/18 07:06 Pulse Ox 92 04/25/18 07:06 Physical Exam: Constitutional: Alert, cooperative and in no distress. Pulmonary: Clear to auscultation bilaterally. Cardiac: Irregular rhythm with a grade 2/6 crescendo decrease murmur at the base, no gallop or rub. Abdomen: Soft, nontender with normal bowel sounds. Extremities: No edema. Skin: No rash, ecchymoses or petechiae. The loop recorder site has no significant bleeding, no swelling. Dressing changed. Results & Data Diagnostic Findings Telemetry: Atrial fibrillation with a controlled heart rate, heart rate as low as 38 bpm transiently, during the night. Occasional ventricular beats and brief runs which could also be aberrant conduction Loop recorder interrogation: Functioning properly, not too much artifact sensing, appropriately detected his brief bradycardia (1) Syncope Syncope type: unspecified Qualified Code(s): R55 - Syncope and collapse (2) Atrial fibrillation Atrial fibrillation type: persistent Qualified Code(s): I48.1 - Persistent atrial fibrillation
--- NOTE | 2018-04-25 11:21 | XRay Report ---
XR chest 1V portable HISTORY: S/P Thoracentesis COMPARISON: Chest 02/23/2018. FINDINGS: Interval decrease in size in the right pleural effusion. There are small bilateral pleural effusions remaining. No pneumothorax. The heart remains mildly enlarged. Perihilar interstitial thick ening has improved. This suggests resolving pulmonary edema. IMPRESSION: 1. Decrease in size in the small right pleural effusion. No pneumothorax. 2. Resolving pulmonary edema. 3. Small left pleural effusion persists. Electronically signed by: Chung Solorzano M.D. 04/25/2018 11:20 AM
--- NOTE | 2018-04-25 11:29 | Operative Report ---
DATE OF OPERATION: 04/25/2018 PREOPERATIVE DIAGNOSIS: Recurrent right pleural effusion. POSTOPERATIVE DIAGNOSIS: Same. PROCEDURE PERFORMED: Ultrasound-guided right thoracentesis. ANESTHESIA: Local. SPECIFICS OF PROCEDURE: This is an 87-year-old male that I know having performed a thoracentesis a few months ago. Clinically, he improved a great deal and the patient and his were quite pleased with how much better he felt. I saw him in the office. He had not really accumulated much in the way of fluid and we elected to watch him. He was admitted here yesterday and has increasing shortness of breath with hypoxia. He seems better now and had some unresponsive episodes. A loop recorder was placed by Dr. Willams yesterday. I had a long talk to the patient and his yesterday and this morning performed a thoracentesis under ultrasound guidance. DESCRIPTION OF PROCEDURE: With the patient in the upright position, the right posterior lateral chest was evaluated and a good window into the pleural cavity was seen. There was a significant amount of fluid. The patient was prepped and draped in the usual sterile fashion. After appropriate timeout had been called, a 25-gauge needle with 1% Xylocaine without epinephrine was used to create a skin wheal and anesthetize the deeper tissues. A large bore needle was used to anesthetize the deeper intercostal muscles and pleura and we got free-flowing very light yellow fluid back. A guidewire was inserted through the needle and the needle removed. Dilator was gently slid over this and then removed and then the triple lumen catheter was slid into 17 cm and the guidewire removed. A total of 1750 mL of a rust-colored fluid was then drained into vacuum bottles. When this had stopped draining, we removed the catheter. We had no bleeding. An antimicrobial dressing was placed posteriorly. A chest x-ray is pending at this time. He tolerated it quite well. His was with him talking to him as he was seated upright the entire procedure. I attest to the content of the Intraoperative Record and any orders documented therein. Any exceptions are noted below. MTDD
[2018-04-25 11:44] LABS: Glucose Pleural Fluid 152 mg/dl
[2018-04-25 11:49] LABS: LDH Pleural Fluid 57 U/L
[2018-04-25 12:58] LABS: Appearance Pleural Fluid CLOUDY; Color Pleural Fluid AMBER; Mononuclear WBC Pleural 95.3 %; Polynuclear WBC Pleural 4.7 %; RBC Pleural Fluid (A) 11000 /uL; Source Pleural Fluid RIGHT LUNG; WBC Pleural Fluid (A) 655 /uL
--- NOTE | 2018-04-25 13:15 | Discharge Summary ---
Date of Service April 25, 2018 Admission HPI Per Admitting Provider Mr. Steele is an 87-year-old gentleman with a history of prior embolic CVA with hemorrhagic transformation, atrial fibrillation, diabetes mellitus, COPD, aortic stenosis, hypertension, GERD who presents to the emergency department due to weakness, shortness of breath and multiple periods of unresponsiveness. The patient's states that Mr. Steele woke up during the night to urinate, and had an episode where he was sitting in bed, and lay backwards suddenly, and was unresponsive for a few seconds. She denies any seizure-like activity, such as tonic-clonic movements, loss of urine or stool, biting of the tongue. He then woke up and told her to call the ambulance as he was feeling very short of breath. She states that he has had multiple episodes in the last 2 weeks where he has been unresponsive for a few seconds. She states this can occur if he is sitting at a table, eating, or even standing. She also states he has had several falls, one when he bent down to pick something up and went "crashing to the ground" and another where he fell backwards onto the couch. She notes that he has had a chronic cough for the past 45 years. She states that it has sounded "more chesty." She has a prescription of amoxicillin at home, and gave him a course of 7 days of twice daily amoxicillin (she is unsure of the dosage). She states that this did improve his cough. Mr. Steele denies any chest pain, and states he is not routinely on oxygen at home. He does admit to decreased appetite, however denies fever or chills. Mr. Steele has no sick contacts, and has not traveled anywhere recently. Of note, he is a prior smoker. He smoked approximately 4 packs of cigarettes a day for approximately 40 years. He states he drinks alcohol occasionally, once a year, denies use of recreational drugs. Discharge Data Consultations 04/24/18 03:19 ED Decision to Admit Stat 04/24/18 05:37 Consult Cardiology Routine Consult Case Management - Discharge Planning Routine Consult Neurology Routine Consult Thoracic Surgery Routine Procedures Performed Operation Date: 04/24/18 15:00 Actual Procedures p Implant Cardiac Event Recorder - Frederikc Willams MD Operation Date: 04/25/18 11:00 Thoracentesis--[facility] Course (1) Pleural effusion on right: Mr. Steele is an 87-year-old M, PMH prior embolic CVA with hemorrhagic transformation, afib, T2DM, COPD, aortic stenosis, HTN, GERD who presents to the ED due to weakness, shortness of breath and multiple periods of unresponsiveness. Pleural effusion -Patient was monitored in telemetry -CTA showed large right-sided pleural effusion, patient has a history of the same. -Dr. Srivastava drained a right pleural effusion on 01/19/2018. Cytology was consistent with a transudate, and was presumed to be secondary to diastolic congestive heart failure. -Dr. Srivastava perfomed thoracentesis on 04/25/2018 with 1750cc--fluid testing pending -no concern for infection given afebrile, normal WCC, and also recent outpatient treatment w/abx -Continue home asa/eliquis -Patient to follow with Dr. Srivastava in 2 weeks from discharge with repeat cxr Syncopal episodes -The patient's described multiple, brief periods of unresponsiveness as well as numerous falls. He has been seen in the neurology clinic for this, and per neurology's note, if he continues to have additional unresponsive events, he may need a repeat MRI +/- EEG -Repeat MRI did not show any acute findings, neither did repeat EEG -Differential diagnosis for syncopal episodes: Related to bradycardia, seizure, orthostatic hypotension, Carotid Sinus Syndrome -Appreciate cardiology and neurology input; loop cardiac event recorder placed -Patient to follow with cardiology week of April 27 Bradycardia -Per review of patient's chart, he has had a history of bradycardia, dipping as low as 30s -Cardiology had recommended a pacemaker at some point, however the patient had not been symptomatic -?Potentially related to the patient's syncopal episodes, cardiology consult appreciated. Event recorder will be analyzed next week but as of now, not showing rates low enough to cause syncopal episodes Atrial fibrillation -Continue home mexiletine and apixaban Hypertension -Continue home lisinopril and furosemide Diabetes mellitus type 2 -Resume home metformin -Most recent hemoglobin A1c was 6.6 in January 2018 History of CVA -Continue home aspirin COPD -Continue home inhalers GERD -Continue home omeprazole BPH -continue home finasteride CODE STATUS: Full (2) Hypoxia: (3) Syncope: (4) Aortic stenosis: (5) Bradycardia: (6) Hypertension: (7) Diabetes: (8) BPH (benign prostatic hyperplasia): (9) Atrial fibrillation: (10) GERD (gastroesophageal reflux disease): (11) COPD (chronic obstructive pulmonary disease): Supervising Physician Co-Signing Physician Notes I have seen and examined the patient today. - Will follow up with Dr. Willams for his loop recorder. - MRI & EEG negative, so seizure/stroke unlikely/ruled out. - Thoracentesis with Dr. Srivastava. No PTX on CXR. Will follow up outpatient. Resident Activity Tracking Resident Involvement: Resident Care Provided Care Provided: Adult Hospital Medicine
--- NOTE | 2018-04-29 09:29 | Coding Query ---
CONGESTIVE HEART FAILURE To Promote full compliance with coding requirements relating to patient care, physician participation is requested in all cases of coder operator uncertainty. Please assist us with the following questions. A diagnosis of Congestive Heart Failure is documented in the patient's medical record. To accurately code this diagnosis and to compare patient severity, we ask that you specify the type of heart failure by placing an X within the parenthesis (x). SYSTOLIC HEART FAILURE ( ) Acute ( ) Chronic ( ) Acute on Chronic ( ) Rheumatic ( x) Unknown DIASTOLIC HEART FAILURE ( ) Acute ( ) Chronic ( ) Acute on Chronic ( ) Rheumatic (x ) Unknown COMBINED SYSTOLIC AND DIASTOLIC HEART FAILURE ( ) Acute ( ) Chronic ( ) Acute on Chronic ( ) Rheumatic ( x) Unknown Was the CHF Present On Admission? Please check the appropriate box: ( ) Present on Admission ( x) Not Present On Admission ( ) Clinically undetermined I see no known CHF in his chart, and we did not manage him for this while admitted. Thank you [facility]
== END 2018-04-25 16:16 | disposition home health service (06) | DRG 261 ==
LOC: ED 01:55 → SUATTDRO 04:29 → 2S 04:29

== ENCOUNTER 2018-05-12 13:21 | Observation (INO) ==
[~2018-05-12 13:21] MED LIST changes: -ACET-24 PO; -ADVIN25050 INH; -ALBUAER2 INH; -ASPI325T45 PO; -CALC-20 PO; +CEFAZOLIN 1000MG 1,000 MG/7.5 ML SYR IV SCH; -CRDCD180 PO; -DIGO0.1267 PO; -FINA5TAB PO; -FISHOIL PO; -LDDP5 TD; +LR 15ML/HR IV SCH; -MAGN400T6 PO; -MISCCAP80 PO; -MRLP17 PO; -MULT-506 PO; -OMEP40CA PO; -TIOTCAP INH; -ULT50X PO; -WARF10TA4 PO; -WARF3TAB6 PO; -WARF5TAB7 PO
--- NOTE | 2018-05-12 14:25 | Pre Anesthesia Assessment ---
Date of Service May 12, 2018 Pre Sedation Assessment Vital Signs Temp Pulse Resp BP Pulse Ox 05/12/18 14:02 37 C 50 L 20 149/66 H 95 Cardiovascular Additional Comments: Irregular rhythm Respiratory normal respiratory effort, lungs clear to auscultation Pre-Sedation Airway Assessment Smoking Status: Former smoker Hx Sleep Apnea: No Hx Difficult Intubation: No Short, Thick Neck: No Thyromental Distance: > or= 3.5 Finger Breadths Mallampati Class: III ASA III NPO Status Date of Last Intake of Fluids: 05/11/18 Date of Last Intake of Solid Food: 05/11/18 Procedure Planning Contraindications for Sedation: none Current Medications Reviewed: Yes Notes The planned sedation has been discussed with the patient and his . Informed Consent was obtained. I have identified the patient, determined the appropriateness of sedation and have assessed the patient immediately prior to the procedure. All medicine(s) and interventions are by my order.
[2018-05-12] MEDS ORDERED: BACITRACIN OINT 0.9 GM PKT ONE (14:26)
[2018-05-12] MEDS ORDERED: LIDOCAINE HCL 1% 20 ML VIAL ONE (14:26)
[2018-05-12] MEDS ORDERED: BACITRACIN INJ 50,000 UNIT VIAL ONE (14:26)
[2018-05-12] MEDS ORDERED: MIDAZOLAM HCL 5 MG/ML 1 ML VIAL ONE (14:41)
[2018-05-12] MEDS ORDERED: fentaNYL citrate 100 MCG/2 ML VIAL ONE (14:41)
[2018-05-12] MEDS ORDERED: ACETAMINOPHEN 325 MG TAB PO PRN (16:40)
--- NOTE | 2018-05-12 16:40 | Operative Report ---
Post Operative Report Pre & Post Diagnosis Operation Date: 05/12/18 15:00 Preoperative diagnosis: Atrial fibrillation with symptomatic bradycardia Postoperative diagnosis: Same Procedure Operation Date: 05/12/18 15:00 Actual Procedures p Pacer with Ventricular Lead - Frederick Willams MD s Remove Cardiac Event Recorder - Frederick Willams MD Surgeon Frederick Willams MD Instrumentation Controls Engineer None Estimated Blood Loss 20 Findings Consistent with Post-Op Diagnosis Good lead position, excellent measurements Specimens Loop recorder, return to [employer] Complications none Disposition Accompanied Patient To Recovery: No Disposition: PCU Description of Procedure After obtaining informed consent for the procedure, the patient was brought to the laboratory and prepped and draped in the standard sterile manner. The right prepectoral region was anesthetized with 1% lidocaine local anesthetic and right axillary venipuncture was performed by percutaneous technique and a guidewire placed through the right subclavian vein into the superior vena cava. The area was further infiltrated with 1% lidocaine local anesthetic and a 5 cm incision was made parallel to the right clavicle and 2 cm below it and carried down to the anterior pectoralis fascia. A pacemaker pocket was formed by blunt dissection anterior to the pectoralis fascia and a bacitracin-soaked sponge (50,000 units in 50 cc normal saline solution) was placed in the pocket. An 8 [place] [employer]onic lead introducer was placed over the guidewire into the right subclavian vein, the dilator and guidewire were removed and a bipolar active fixation steroid tipped ventricular lead was advanced through the introdu cer into the superior vena cava. A guidewire was placed through the introducer and the introducer was stripped from the lead and guidewire. Using a curved stylette the ventricular lead was advanced through the right ventricular outflow tract into the pulmonary artery and then using a straight stylette was positioned in the right ventricular apex. The screw was extended fixing the lead in position. Pacing and sensing thresholds were evaluated in bipolar configuration and are recorded on the implant data sheet. Once the lead was in position it was attached to the anterior pectoralis fascia using 2 sutures of 2-0 silk around the lead collar. The bacitracin-soaked sponge was removed from the pocket, hemostasis was obtained, the pacemaker was attached to the lead and placed in the pocket with the lead coiled beneath it. The incision was closed with a running double subcutaneous closure of 3-0 V-Lock absorbable suture, followed by running subcuticular skin closure of 4-0 V-Lock absorbable suture. Bacitracin ointment was placed on the incision and a pressure dressing applied. The patient had been prepped and draped in the standard sterile manner for a loop recorder removal at the time of prep for his pacemaker implantation. The area was infiltrated with 1% lidocaine local anesthetic and a 1 cm incision was made through the old implant scar and carried down to the loop recorder. The loop recorder was dissected free of tissue and explanted. The incision was closed with a subcutaneous continuous closure of 4-0 Vicryl followed by running subcuticular skin closure of 4-0 Vicryl. Bacitracin ointment was placed on the incision. A dressing was applied. I attest to the content of the Intraoperative Record and any orders documented therein. Any exceptions are noted below.
[2018-05-12] MEDS ORDERED: ACETAMINOPHEN 500 MG TAB PO PRN (16:44)
[2018-05-12] MEDS ORDERED: NON-FORMULARY MEDICATION (Lactobacillus Combination No.4 [Probiotic] 3,000 mmu cells) PO SCH (16:45)
[2018-05-12] MEDS: MAGNESIUM OXIDE 400 MG TAB PO SCH (20:05)
[2018-05-12] MEDS: KETOROLAC TROMETHAMINE 10 MG TABLET PO PRN (22:15)
--- NOTE | 2018-05-13 06:54 | XRay Report ---
XR chest 2V routine CLINICAL HISTORY: EXACT TIME ORDERED Evaluate for pneumothorax and l COMPARISON STUDY: 05/11/2018 FINDINGS: Placement of a unipolar cardiac pacemaker. Leads in good position. No evidence pneumothorax . IMPRESSION: Placement of a unipolar cardiac pacemaker with leads in good position. No evidence pneum othorax. Persistent components of mild congestive failure The above report was generated using voice recognition software. It may contain grammatical, syntax or spelling errors. Electronically signed by: Romeo Thompson M.D. 05/13/2018 6:53 AM
[2018-05-13] MEDS ORDERED: METFORMIN HCL 500 MG TAB PO SCH (07:30)
[2018-05-13] MEDS ORDERED: FINASTERIDE 5 MG TAB PO SCH (09:00)
[2018-05-13] MEDS ORDERED: CALCIUM 600MG + VIT D 400 IU TAB PO SCH (09:00)
[2018-05-13] MEDS ORDERED: FUROSEMIDE 40 MG TAB PO SCH (09:00)
[2018-05-13] MEDS ORDERED: LISINOPRIL 10 MG TAB PO SCH (09:00)
[2018-05-13] MEDS: KETOROLAC TROMETHAMINE 10 MG TABLET PO PRN (09:00)
[2018-05-13] MEDS ORDERED: PANTOprazole 40 MG TAB PO SCH (09:00)
[2018-05-13] MEDS ORDERED: ASPIRIN 325 MG ECTAB PO SCH (09:00)
[2018-05-13] MEDS ORDERED: MULTIVITAMIN TAB PO SCH (09:00)
[2018-05-13] MEDS ORDERED: POTASSIUM CHLORIDE 10 MEQ TABCR PO SCH (09:00)
[2018-05-13] MEDS: MAGNESIUM OXIDE 400 MG TAB PO SCH (09:04)
--- NOTE | 2018-05-13 10:04 | Cardiology Progress Note ---
Date of Service May 13, 2018 Assessment & Plan (1) Pacemaker: He is doing well postop day #1. The site looks good, the device is functioning well and the lead appears to be in good position on chest x-ray. Stable for discharge. Subjective He feels well today, no significant incisional discomfort. Physical Exam Vital Signs (Past 24 Hours): Last Vital Signs Temp 37.1 C 05/13/18 07:44 Pulse 69 05/13/18 07:44 Resp 16 05/13/18 07:44 BP 122/61 05/13/18 07:44 Pulse Ox 93 05/13/18 07:44 Physical Exam: The pacemaker incision looks good, there is only minor ecchymosis, the incision is clean and dry. No swelling. Dressing changed. Results & Data Diagnostic Findings Electrocardiogram post pacemaker: Atrial fibrillation with appropriate edinson tricular pacing Telemetry: Atrial fibrillation with appropriate pacing Chest x-ray: Good lead position, no pneumothorax Pacemaker evaluation: Excellent pacing and sensing characteristics
--- NOTE | 2018-05-25 16:46 | Discharge Summary ---
Date of Service May 25, 2018 Admission HPI Per Admitting Provider 87-year-old male with a history of permanent atrial fibrillation and intermittent syncope. A loop recorder was placed, he was observed to have a 9- second pause on monitoring. He therefore was admitted for pacemaker imp lantation. Admission Exam (Per Admitting) Constitutional Constitutional: Alert, cooperative and in no distress. HEENT: Unremarkable Neck: No jugular venous distention, carotid pulses are irregular but otherwise normal and equal bilaterally without bruits. Pulmonary: Clear to auscultation bilaterally. Cardiac: Irregular rhythm with no murmur, gallop or rub. Abdomen: Soft, nontender with normal bowel sounds. Extremities: No edema. Distal pulses intact. Neurologic: No focal findings. Gait is steady. Skin: No rash, ecchymoses or petechiae. Discharge Data Procedures Performed Operation Date: 05/12/18 15:00 Actual Procedures p Pacer with Ventricular Lead - Frederick Willams MD s Remove Cardiac Event Recorder - Frederick Willams MD Hospital Course (1) Atrial fibrillation: He is in permanent atrial fibrillation. We will restart anticoagulation. (2) Pacemaker: A pacemaker was placed on the day of admission, there were no complications and the device function normally overnight. This morning his pacemaker is functioning well, the site looks good and he feels well. He is therefore stable for discharge.
== END 2018-05-13 11:31 | disposition home health service (06) ==
LOC: 2E 13:21 → ASU 13:21
DX: Z86.73 Personal history of transient ischemic attack (TIA), and cerebral infarction without residual deficits; L71.9 Rosacea, unspecified; Z82.49 Family history of ischemic heart disease and other diseases of the circulatory system; I48.92 Unspecified atrial flutter; I48.2 Chronic atrial fibrillation; R55 Syncope and collapse; E78.5 Hyperlipidemia, unspecified; I49.5 Sick sinus syndrome; E83.42 Hypomagnesemia; Z83.3 Family history of diabetes mellitus; N40.0 Benign prostatic hyperplasia without lower urinary tract symptoms; I10 Essential (primary) hypertension; I35.0 Nonrheumatic aortic (valve) stenosis; Z88.8 Allergy status to other drugs, medicaments and biological substances; Z79.01 Long term (current) use of anticoagulants; E11.9 Type 2 diabetes mellitus without complications; I42.9 Cardiomyopathy, unspecified; K21.9 Gastro-esophageal reflux disease without esophagitis; J44.9 Chronic obstructive pulmonary disease, unspecified

== ENCOUNTER 2019-05-27 11:55 | Inpatient (IN) ==
--- NOTE | 2019-05-27 12:26 | Emergency Department Note ---
Impression & Plan Pleural effusion, CHF (congestive heart failure), Hyponatremia, Dyspnea on exertion ED Provider Note NAME: SASHA RAMIREZ AGE: 88 SEX: M ARRIVES VIA: Walk-In INFORMANT: Patient, ED PROVIDER(S): Tim Holloway MD CHIEF COMPLAINT: PLAN: Disposition: Admit MEDICAL DECISION MAKING: The patient is a pleasant 88-year-old gentleman with a past medical history of severe aortic stenosis, cardiomyopathy, atrial fibrillation on Eliquis status post PPM, GERD, history of CVA with residual right-sided weakness who presents emergency department for evaluation of persistent/worsening progressive shortness of breath over the past week in the setting of increased fluid retention seen at PCPs office at the [place] with chest x-ray showing pleural e ffusion. I received the call ahead report from the [facility], Dr. Rico. Patient denies any fevers, nausea, vomiting, diarrhea, urinary symptoms. He reports his shortness of breath is most severe when he gets up in the morning and starts moving around. He denies any difficulty breathing when he lies flat to sleep. On arrival the patient is chronically ill-appearing but no acute distress, afebrile stable vital signs. EKG demonstrates atrial fibrillation with PVCs and without overt acute ischemia. Chest x-ray demonstrates volume overload with congestive change. There is significant increase in pleural effusions with moderate to large right and small left pleural effusions. WBC/H/H and platelets within normal limits. VBG unremarkable. Chemistry without acidosis. Sodium 129. Electrolytes and LFTs otherwise unremarkable. Troponin negative/undetectable. BNP 4500 without prior values for comparison however consistent with the patient's volume overload on exam. UA without infection. CTA of the chest was performed for further clarification of the patient's pleural effusions and was negative for PE and again redemonstrated large right and small left pleural effusion with additional evidence of mucous plugging and partial collapse of the right middle and lower lobes. Given the patient's findings in the setting of his worsening dyspnea on exertion reasonable proceed with admission for IV diuresis and likely thoracentesis. The patient and his are agreeable with this. Case was discussed with Dr. Fournier, [facility] hospitalist who evaluate the patient for admission. Triage Nursing notes reviewed and agree them. Additional history obtained from call from Dr. Gayle/[facility] physician Prior medical records reviewed Vital Signs: reviewed and remarkable for no significant abnormalities Differential diagnosis: Reactive airway disease, pneumonia, pneumothorax, COPD, CHF, infections, cardiac ischemia, pulmonary embolism, musculoskeletal, gastrointestinal, as well as other pathologies. ER treatment provided: See below. Diagnostics interpreted by me: ECG: Atrial fibrillation, frequent PVCs, 86 bpm, with no overt ST elevation or depression. Cardiac Monitoring: Atrial fibrillation, 86 bpm, frequent PVCs. Laboratory studies: See below Imaging studies: XR chest 1V portable CLINICAL HISTORY: 88 years-old Male presenting with Chest Pain. TECHNIQUE: Portable upright AP view of the chest was obtained. COMPARISON: 05/13/2018. FINDINGS: Right subclavian pacer with single lead to the right ventricular apex. Atherosclerosis of the aortic arch. Cardiac silhouette moderately enlarged. Pulmonary vascular prominence. Heterogeneity of lung parenchyma. Interstitial prominence may be present. Significant interval increase of the now moderate to large right pleural effusion with poor aeration of the right mid to lower lung. Small left pleural effusion now present. Minimal irregular linear opacities and added density of the left lung base and left perihilar region. Degenerative changes of the thoracic spine. Upper abdomen normal. IMPRESSION: 1. Cardiomegaly with volume overload and congestive change. No nayla pulmonary edema. 2. Significant interval increase of the now moderate to large right and small left pleural effusions with passive atelectasis. -- CT angio chest PE protocol CT DOSE: 493.30 mGy.cm HISTORY: 88 years-old Male with PE. Acute shortness of breath TECHNIQUE: Multiple CTA images of the chest were obtained after the intravenous administration of 119 ml Optiray 320. Coronal and sagittal MIPS were obtained from the axial data set and were submitted for review. All measurements were obtained according to NASCET criteria. A dose lowering technique was utilized adhering to the principles of ALARA. COMPARISON: CTA of the chest 04/24/2018 FINDINGS: CTA: Heart is moderately enlarged. No pericardial effusion. Dense mitral and aortic annular calcifications are present in addition to coronary arterial and left ventricular papillary muscle calcifications. Left heart structures are not well evaluated secondary to contrast bolus timing. There is no thoracic aortic aneurysm. Advanced calcified plaque the thoracic aortic arch and proximal great vessels. Right subclavian single lead pacer is noted with lead overlying the right ventricle. Reflux of contrast into the IVC. There is decreased opacification of the right lung base pulmonary arterial tree likely secondary to shunting. No discrete pulmonary embolus identified. Respiratory motion artifact limits evaluation of the lung bases. CT CHEST: Unremarkable thyroid. No pathologically enlarged lymph nodes identified by CT size criteria. Prominent paratracheal lymph nodes measure up to 9 mm. Small left and large right pleural effusions have increased in size from comparison. Dependent bibasilar consolidation, right greater than left. Advanced emphysema. Mild loss with partial collapse of the right lower and middle lobes with mucous plugging of the right mainstem bronchus, bronchus intermedius, right middle and lower lobe bronchi. Respiratory motion artifact limits evaluation of the lung parenchyma. No acute process of the imaged upper abdomen. Soft tissues are unremarkable. Remote appearing deformity of the posterior lateral left seventh and eighth ribs. Marginal nodularity of the liver suggests cirrhosis. IMPRESSION: 1. Limited exam secondary to respiratory motion. Cardiomegaly without evidence of pulmonary thromboembolic disease. Decreased opacification of the right lung base pulmonary arterial tree is likely secondary to shunting. 2. Large right and small left pleural effusions have increased in size in the interval. 3. Extensive mucous plugging of the right lung with volume loss and partial collapse of the right middle and lower lobes. 4. Right greater than left bibasilar consolidation is suggestive of probable atelectasis. Correlate clinically to exclude superimposed pneumonia. 5. Advanced emphysema. 6. Additional findings as above. Consultation(s): Dr. Fournier, [facility] hospitalist. HPI: The patient is a pleasant 88-year-old gentleman with a past medical history of severe aortic stenosis, cardiomyopathy, atrial fibrillation on Eliquis status post PPM, GERD who presents emergency department for evaluation of persistent/worsening progressive shortness of breath over the past week in the setting of [facility] showing pleural effusion. Patient denies any fevers, nausea, vomiting, diarrhea, urinary symptoms. He reports his shortness of breath is most severe when he gets up in the morning and starts moving around. He denies any difficulty breathing when he lies flat to sleep. ROS: See above HPI for pertinent positives & negatives. A total of 10 systems reviewed and were otherwise negative. PAST MEDICAL HISTORY:See Below PAST SURGICAL HISTORY:See Below FAMILY HISTORY:See Below SOCIAL HISTORY:See Below HOME MEDICATIONS:See Below ALLERGIES:See Below VITALS:See Below PHYSICAL EXAMINATION: GENERAL: Awake, alert, chronically ill-appearing, in no distress HENT: Normocephalic, atraumatic. Oropharynx with dry mucous membranes and ot herwise unremarkable. EYES: Normal conjunctiva. Sclera non-icteric. NECK: Supple. No nuchal rigidity. FROM. Mild JVD. RESPIRATORY: Diminished breath sounds at the bases R>>L, with scant rhonchi. CARDIAC: Regular rate, irregular rhythm. 1/6 systolic murmur. Extremities warm and well perfused. Pulses equal. ABDOMEN: Soft, non-distended. No tenderness to palpation. No rebound or guarding. No masses. RECTAL: Deferred. MUSCULOSKELETAL: Chest examination reveals no tenderness. The back is symmetrical on inspection without obvious abnormality. There is no CVA tenderness to palpation. No joint edema. LOWER EXTREMITIES: Calves are equal size bilaterally and non-tender. 2+ left lower extremity and 3+ right lower extremity edema. No discoloration. NEURO: Normal sensorium. No sensory or motor deficits noted. SKIN: No rash or jaundice noted. Tim Holloway MD Past Med/Surg History Medical History Ambulatory dysfunction (Acute) Angina pectoris (Acute) Anticoagulant long-term use (Acute) Aortic stenosis Atrial fibrillation (Chronic) Valladares's esophagus (Acute) BPH (benign prostatic hyperplasia) (Chronic) Cardiomyopathy (Acute) COPD (chronic obstructive pulmonary disease) (Chronic) Degeneration of cervical intervertebral disc (Acute) Diabetes (Chronic) Essential (primary) hypertension (Acute) Foot drop (Acute) GERD (gastroesophageal reflux disease) (Chronic) H/O: CVA (cerebrovascular accident) H/O: CVA (cerebrovascular accident) Hearing impairment 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 (Acute) Hepatic cirrhosis (Acute) History of stroke Hyperlipidemia (Acute) Hypertension Hypomagnesemia (Acute) Intracranial bleed (Acute) Osteoporosis (Acute) Pacemaker Parathyroid dysfunction (Acute) Permanent atrial fibrillation (Acute) Syncope, cardiogenic (Acute) Tachy-michael syndrome (Acute) Trigger finger (Acute) Surgical History H/O transurethral resection of prostate History of permanent cardiac pacemaker placement Hx of cataract surgery (Acute) Status post left knee replacement (Acute) Family History Mother Heart disease Sister Diabetes Father , age 32 Cancer unknown type Other Family history non-contributory Social History Preferred Language: French Communication Ability: Effective Visual Impairment: No Limitations Swimming Pool Service Technician Required: No Beliefs That Will Affect Care: None marital status: Current Living Situation: Spouse Current Living Situation Comment: lives in [place] with current occupational status: retired Other Information That Helps Us Care for You: No other: worked as [employer]; has 2 children Feels Safe at Home: Yes Safety Concerns: Feels Safe At This Time Smoking Status: Former smoker Tobacco Type: cigarettes ; Age Quit Using Tobacco: 56 ; packs per day: 3 ; Do You Dip or Chew Tobacco: No ; Second Hand Exposure: No ; Tobacco Cessation Education Requested by Patient: No Hx Alcohol Use: No (stopped 2017 ) Hx Substance Use: No Seatbelt Use: always Allergies Allergies Allergy/AdvReac Type Severity Reaction Status Date / Time clonidine Allergy Mild Unknown Verified 05/27/19 12:40 felodipine Allergy Mild Unknown Verified 05/27/19 12:40 Home Meds Home Medications Medication Instructions Recorded Confirmed Spiriva with HandiHaler 1 cap INHALATION QAM 12/21/17 05/27/19 Calcium 600 + D(3) 2 tab PO QAM 04/24/18 05/27/19 Probiotic 3,000 mmu cells PO DIRECTED 04/24/18 05/27/19 acetaminophen [Tylenol Extra 1,000 mg PO HS 04/24/18 05/27/19 Strength] aspirin 325 mg PO QAM 04/24/18 05/27/19 magnesium oxide 400 mg PO BID 04/24/18 05/27/19 multivitamin 1 tab PO QAM 04/24/18 05/27/19 mupirocin 1 applic TOPICAL BID 04/24/18 05/27/19 nitroglycerin 0.4 mg SUBLINGUAL DIRECTED PRN 04/24/18 05/27/19 apixaban [Eliquis] 0 mg PO BID 05/27/19 05/27/19 atorvastatin 10 mg PO QDD 05/27/19 05/27/19 budesonide-formoterol [Symbicort] 2 puff INHALATION BIDM 05/27/19 05/27/19 finasteride 5 mg PO QAM 05/27/19 05/27/19 furosemide [Lasix] 40 mg PO QAM 05/27/19 05/27/19 lisinopril 10 mg PO QAM 05/27/19 05/27/19 metoprolol succinate 25 mg PO QDD 05/27/19 05/27/19 potassium chloride [Klor-Con 10] 10 meq PO QAM 05/27/19 05/27/19 sertraline 25 mg PO QAM 05/27/19 05/27/19 Previous Rx's Medication Instructions Recorded triamcinolone acetonide 0.1 % See Rx Instructions .ROUTE 12/28/18 topical cream .COMPLEX #80 gm albuterol sulfate 90 mcg/actuation 1 - 2 puff INHALATION Q4 PRN #8 gm 03/12/19 aerosol inhaler Results & Data (ED) Vital Signs Vital Signs - 24 hr 05/27/19 12:01 05/27/19 12:19 05/27/19 12:25 Temperature 36.5 C Temperature Source Oral Pulse Rate 62 Pulse Rate [Right Finger] Pulse Rate from SpO2 Sensor Respiratory Rate 22 Respiratory Effort / Characteristics Non-Labored Spontaneous Spontaneous Respiratory Depth Normal Normal Respiratory Pattern Regular Blood Pressure 150/74 H Blood Pressure [Left Arm] Blood Pressure Mean 99 Blood Pressure Mean [Left Arm] Blood Pressure Position Sitting Blood Pressure Position [Left Arm] Pulse Oximetry 94 92 93 Oxygen Delivery Method Room Air Room Air Room Air Sepsis Recent Fever Within 48 Hours No Sepsis Action Taken by Nursing No Action Required 05/27/19 13:20 05/27/19 13:30 05/27/19 13:40 Temperature Temperature Source Pulse Rate 87 85 91 H Pulse Rate [Right Finger] Pulse Rate from SpO2 Sensor 48 L 42 L 61 Respiratory Rate 19 19 27 H Respiratory Effort / Characteristics Respiratory Depth Respiratory Pattern Blood Pressure Blood Pressure [Left Arm] Blood Pressure Mean Blood Pressure Mean [Left Arm] Blood Pressure Position Blood Pressure Position [Left Arm] Pulse Oximetry 93 95 92 Oxygen Delivery Method Sepsis Recent Fever Within 48 Hours Sepsis Action Taken by Nursing 05/27/19 13:50 05/27/19 14:00 05/27/19 14:02 Temperature Temperature Source Pulse Rate 78 88 95 H Pulse Rate [Right Finger] 82 Pulse Rate from SpO2 Sensor 61 64 57 L Respiratory Rate 18 22 21 Respiratory Effort / Characteristics Non-Labored Spontaneous Respiratory Depth Normal Respiratory Pattern Regular Blood Pressure 96/70 L Blood Pressure [Left Arm] 124/87 Blood Pressure Mean 90 Blood Pressure Mean [Left Arm] 99 Blood Pressure Position Blood Pressure Position [Left Arm] Lying Pulse Oximetry 94 91 93 Oxygen Delivery Method Room Air Sepsis Recent Fever Within 48 Hours Sepsis Action Taken by Nursing 05/27/19 14:05 05/27/19 14:10 05/27/19 14:20 Temperature Temperature Source Pulse Rate 93 H 87 95 H Pulse Rate [Right Finger] Pulse Rate from SpO2 Sensor 49 L 55 L 62 Respiratory Rate 18 21 20 Respiratory Effort / Characteristics Respiratory Depth Respiratory Pattern Blood Pressure 124/87 Blood Pressure [Left Arm] Blood Pressure Mean 109 Blood Pressure Mean [Left Arm] Blood Pressure Position Blood Pressure Position [Left Arm] Pulse Oximetry 93 94 93 Oxygen Delivery Method Sepsis Recent Fever Within 48 Hours Sepsis Action Taken by Nursing 05/27/19 14:30 05/27/19 14:40 05/27/19 14:50 Temperature Temperature Source Pulse Rate 84 92 H 93 H Pulse Rate [Right Finger] Pulse Rate from SpO2 Sensor 68 62 60 Respiratory Rate 20 23 21 Respiratory Effort / Characteristics Respiratory Depth Respiratory Pattern Blood Pressure Blood Pressure [Left Arm] Blood Pressure Mean Blood Pressure Mean [Left Arm] Blood Pressure Position Blood Pressure Position [Left Arm] Pulse Oximetry 94 92 90 Oxygen Delivery Method Sepsis Recent Fever Within 48 Hours Sepsis Action Taken by Nursing 05/27/19 15:00 05/27/19 15:09 Temperature Temperature Source Pulse Rate 81 82 Pulse Rate [Right Finger] Pulse Rate from SpO2 Sensor 66 63 Respiratory Rate 21 21 Respiratory Effort / Characteristics Respiratory Depth Respiratory Pattern Blood Pressure 126/68 Blood Pressure [Left Arm] Blood Pressure Mean 74 Blood Pressure Mean [Left Arm] Blood Pressure Position Blood Pressure Position [Left Arm] Pulse Oximetry 94 92 Oxygen Delivery Method Sepsis Recent Fever Within 48 Hours Sepsis Action Taken by Nursing Laboratory Data Attestation: I reviewed the patient's lab results. Result diagrams: 05/27/19 12:25 05/27/19 12:25 Lab Results 05/27/19 05/27/19 05/27/19 Range/Units 12:23 12:25 12:25 WBC 7.95 (4.8-10.8) K/uL RBC 4.89 (4.7-6.1) M/uL Hgb 14.5 (14.0-18.0) g/dL Hct 42.5 (42-52) % MCV 86.9 (80-100) fL MCH 29.7 (25-34) pg MCHC 34.1 (32-36) g/dL RDW Std Deviation 42.4 (36.4-46.3) fL RDW Coeff of Dolores 13.3 (11.5-14.5) % Plt Count 213 (130-400) K/uL MPV 10.4 (7.4-10.4) fL Immature Gran % (Auto) 0.3 % Neut % (Auto) 79.6 % Lymph % (Auto) 12.2 % [place] % (Auto) 7.2 % Eos % (Auto) 0.4 % Baso % (Auto) 0.3 % Immature Gran # (Auto) 0.02 (0.00-0.02) K/uL Neut # (Auto) 6.34 (1.4-6.5) K/uL Lymph # (Auto) 0.97 L (1.2-3.4) K/uL [place] # (Auto) 0.57 (0.11-0.59) K/uL Eos # (Auto) 0.03 (0-0.5) K/uL Baso # (Auto) 0.02 (0-0.2) K/uL PT 12.3 H (9.0-12.0) Seconds INR 1.2 H (0.9-1.1) APTT 36.7 H (21.0-31.0) Seconds PTT Ratio 1.3 VBG pH (7.36-7.41) VBG pCO2 (38-50) mmHg VBG pO2 mmHg VBG HCO3 mmol/L VBG O2 Saturation % VBG Base Excess mEq/L Barometric Pressure mm/Hg Sodium (136-145) mmol/L Potassium (3.5-5.1) mmol/L Chloride (98-107) mmol/L Carbon Dioxide (21-32) mmol/L Anion Gap (3-11) BUN (7-18) mg/dl Creatinine (0.6-1.4) mg/dl Est Cr Clr Drug Dosing Est GFR ( Amer) Est GFR (Non-Af Amer) BUN/Creatinine Ratio (10-20) Glucose (70-99) mg/dl Osmolality 282 (280-300) mOsm/kg Calcium (8.5-10.1) mg/dl Phosphorus (2.5-4.9) mg/dl Magnesium (1.8-2.4) mg/dl Total Bilirubin (0.2-1) mg/dl AST (15-37) U/L ALT (12-78) U/L Alkaline Phosphatase (45-117) U/L Troponin I (0-0.045) ng/ml NT-Pro-B Natriuret Pep (0-1800) pg/ml Total Protein (6.4-8.2) gm/dl Albumin (3.4-5.0) gm/dl Globulin (2.5-4.0) gm/dl Albumin/Globulin Ratio (0.9-2) Lipase (73-393) U/L TSH (0.300-4.500) uIu/ml Urine Color Urine Appearance (Clear) Urine pH (4.5-7.5) Ur Specific Clio (1.000-1.030) Urine Protein (Negative) Urine Glucose (UA) (Negative) Urine Ketones (Negative) Urine Blood (Negative) Urine Nitrite (Negative) Urine Bilirubin (Negative) Urine Urobilinogen (Negative) Ur Leukocyte Esterase (Negative) 05/27/19 05/27/19 05/27/19 Range/Units 12:25 12:46 14:03 WBC (4.8-10.8) K/uL RBC (4.7-6.1) M/uL Hgb (14.0-18.0) g/dL Hct (42-52) % MCV (80-100) fL MCH (25-34) pg MCHC (32-36) g/dL RDW Std Deviation (36.4-46.3) fL RDW Coeff of Dolores (11.5-14.5) % Plt Count (130-400) K/uL MPV (7.4-10.4) fL Immature Gran % (Auto) % Neut % (Auto) % Lymph % (Auto) % [place] % (Auto) % Eos % (Auto) % Baso % (Auto) % Immature Gran # (Auto) (0.00-0.02) K/uL Neut # (Auto) (1.4-6.5) K/uL Lymph # (Auto) (1.2-3.4) K/uL [place] # (Auto) (0.11-0.59) K/uL Eos # (Auto) (0-0.5) K/uL Baso # (Auto) (0-0.2) K/uL PT (9.0-12.0) Seconds INR (0.9-1.1) APTT (21.0-31.0) Seconds PTT Ratio VBG pH 7.38 (7.36-7.41) VBG pCO2 53 H (38-50) mmHg VBG pO2 22 mmHg VBG HCO3 31 mmol/L VBG O2 Saturation < 60.0 % VBG Base Excess 4.6 mEq/L Barometric Pressure 717.5 mm/Hg Sodium 129 L (136-145) mmol/L Potassium 4.1 (3.5-5.1) mmol/L Chloride 93 L (98-107) mmol/L Carbon Dioxide 29 (21-32) mmol/L Anion Gap 7.0 (3-11) BUN 14 (7-18) mg/dl Creatinine 0.81 (0.6-1.4) mg/dl Est Cr Clr Drug Dosing Not Reportable Est GFR ( Amer) 92.6 Est GFR (Non-Af Amer) 79.9 BUN/Creatinine Ratio 17.7 (10-20) Glucose 167 H (70-99) mg/dl Osmolality (280-300) mOsm/kg Calcium 9.4 (8.5-10.1) mg/dl Phosphorus 3.4 (2.5-4.9) mg/dl Magnesium 1.9 (1.8-2.4) mg/dl Total Bilirubin 1.3 H (0.2-1) mg/dl AST 23 (15-37) U/L ALT 28 (12-78) U/L Alkaline Phosphatase 143 H (45-117) U/L Troponin I < 0.015 (0-0.045) ng/ml NT-Pro-B Natriuret Pep 4596 H (0-1800) pg/ml Total Protein 7.9 (6.4-8.2) gm/dl Albumin 3.9 (3.4-5.0) gm/dl Globulin 4.0 (2.5-4.0) gm/dl Albumin/Globulin Ratio 1.0 (0.9-2) Lipase 97 (73-393) U/L TSH 0.888 (0.300-4.500) uIu/ml Urine Color Yellow Urine Appearance Clear (Clear) Urine pH 7.5 (4.5-7.5) Ur Specific Clio 1.010 (1.000-1.030) Urine Protein Negative (Negative) Urine Glucose (UA) Negative (Negative) Urine Ketones Negative (Negative) Urine Blood Negative (Negative) Urine Nitrite Negative (Negative) Urine Bilirubin Negative (Negative) Urine Urobilinogen Negative (Negative) Ur Leukocyte Esterase Negative (Negative) Administered Medications Acetaminophen (Tylenol) 1,000 mg PO HS DAVID Stop: 06/26/19 20:59 Last Admin: 05/27/19 20:15 Dose: 1,000 mg Documented by: [id number] Atorvastatin Calcium (Lipitor) 10 mg PO QDD DAVID Stop: 06/26/19 16:59 Last Admin: 05/27/19 17:39 Dose: 10 mg Documented by: [id number] Fluticasone/Vilanterol (Breo Ellipta 100/25 Mcg Inh) 1 puffs INH DAILY DAVID; Protocol Stop: 06/26/19 17:59 Last Admin: 05/27/19 17:39 Dose: 1 puffs Documented by: [id number] Guaifenesin (Mucinex) 1,200 mg PO Q12 DAVID Stop: 06/26/19 20:59 Last Admin: 05/27/19 20:14 Dose: 1,200 mg Documented by: [id number] Magnesium Oxide (Mag-Ox) 400 mg PO BID DAVID Stop: 06/26/19 20:59 Last Admin: 05/27/19 20:14 Dose: 400 mg Documented by: [id number] Metoprolol Succinate (Toprol Xl) 25 mg PO QDD DAVID Stop: 06/26/19 16:59 Last Admin: 05/27/19 17:39 Dose: 25 mg Documented by: [id number] Mupirocin (Bactroban 2%) 1 appln EXT BID DAVID Stop: 06/26/19 20:59 Last Admin: 05/27/19 20:18 Dose: Not Given Documented by: [id number] Discontinued Medications Furosemide (Lasix) 20 mg IV NOW STA Stop: 05/27/19 15:33 Last Admin: 05/27/19 16:07 Dose: 20 mg Documented by: [id number] Ioversol (Optiray 320 125ml) 119 ml IV ONCE PRN PRN Reason: Interaction Checking Stop: 05/31/19 15:38 Last Admin: 05/27/19 15:41 Dose: 119 ml Documented by: [id number] Blood Pressure Blood Pressure Findings: Elevated blood pressure Blood Pressure Disposition: further management by hospitalist Discharge Plan Visit Data *Final* Discharge Date/Time: 05/27/19 16:18 Chief Complaint: Respiratory Problems Stated Complaint: RESP PROBLEMS, REF'D BY DOC ED Provider: Tim Hollwoay Discharge Problem: Pleural effusion, CHF (congestive heart failure), Hyponatremia, Dyspnea on exertion Patient Disposition: Admitted As Inpatient Discharge Instructions Interventions: ED Discharge Assessment Last Done: 05/27/19 16:18
[2019-05-27 12:35] LABS: Basophils # (auto) 0.02 K/uL (0-0.2); Basophils % (auto) 0.3 %; Eosinophils # (auto) 0.03 K/uL (0-0.5); Eosinophils % (auto) 0.4 %; Hematocrit (blood only) 42.5 % (42-52); Hemoglobin 14.5 g/dL (14.0-18.0); Immature Granulocytes # (auto) 0.02 K/uL (0.00-0.02); Immature Granulocytes % (auto) 0.3 %; Lymphocytes # (auto) 0.97 K/uL (1.2-3.4); Lymphocytes % (auto) 12.2 %; Mean Corpuscular Hemoglobin 29.7 pg (25-34); Mean Corpuscular Hgb Conc 34.1 g/dL (32-36); Mean Corpuscular Volume 86.9 fL (80-100); Mean Platelet Volume 10.4 fL (7.4-10.4); Monocytes # (auto) 0.57 K/uL (0.11-0.59); Monocytes % (auto) 7.2 %; Neutrophils # (auto) 6.34 K/uL (1.4-6.5); Neutrophils % (auto) 79.6 %; Platelet Count 213 K/uL (130-400); RDW Coefficient of Variation 13.3 % (11.5-14.5); RDW Standard Deviation 42.4 fL (36.4-46.3); Red Blood Count 4.89 M/uL (4.7-6.1); White Blood Count 7.95 K/uL (4.8-10.8)
--- NOTE | 2019-05-27 12:46 | Electrocardiogram Report ---
Test Reason : Blood Pressure : / mmHG Vent. Rate : 086 BPM Atrial Rate : 100 BPM P-R Int : 000 ms QRS Dur : 148 ms QT Int : 418 ms P-R-T Axes : 000 099 -85 degrees QTc Int : 500 ms Poor data quality, interpretation may be adversely affected Atrial fibrillation with frequent ventricular-paced complexes and with premature ventricular or aberr antly conducted complexes Rightward axis Abnormal ECG When compared with ECG of 12-MAY-2018 18:08, Vent. rate has increased BY 22 BPM Premature ventricular complexes More frequent Confirmed by Magan Turcios ([id number]) on 05/27/2019 12:46:32 PM Referred By: Confirmed By:Magan Turcios
--- NOTE | 2019-05-27 12:48 | XRay Report ---
XR chest 1V portable CLINICAL HISTORY: 88 years-old Male presenting with Chest Pain. TECHNIQUE: Portable upright AP view of the chest was obtained. COMPARISON: 05/13/2018. FINDINGS: Right subclavian pacer with single lead to the right ventricular apex. Atherosclerosis of the aortic arch. Cardiac silhouette moderately enlarged. Pulmonary vascular prominence. Heterogeneity of lung pa renchyma. Interstitial prominence may be present. Significant interval increase of the now moderate t o large right pleural effusion with poor aeration of the right mid to lower lung. Small left pleural effusion now present. Minimal irregular linear opacities and added density of the left lung base and left perihilar region. Degenerative changes of the thoracic spine. Upper abdomen normal. IMPRESSION: 1. Cardiomegaly with volume overload and congestive change. No nayla pulmonary edema. 2. Significant interval increase of the now moderate to large right and small left pleural effusions with passive atelectasis. ACT 112: Negative or not required by law. Electronically signed by: Thierry Chavez M.D. 05/27/2019 12:46 PM
[2019-05-27 12:51] LABS: Albumin Level 3.9 gm/dl (3.4-5.0); Aspartate Aminotransferase 23 U/L (15-37); BUN Creatinine Ratio 17.7 (10-20); Blood Urea Nitrogen 14 mg/dl (7-18); Calcium 9.4 mg/dl (8.5-10.1); Carbon Dioxide 29 mmol/L (21-32); Chloride 93 mmol/L (98-107); Est GFR (African American) 92.6; Est GFR (Non-African American) 79.9; Glucose 167 mg/dl (70-99); Lipase 97 U/L (73-393); Magnesium 1.9 mg/dl (1.8-2.4); Potassium 4.1 mmol/L (3.5-5.1); Sodium 129 mmol/L (136-145)
[2019-05-27 12:52] LABS: INR 1.2 (0.9-1.1); Partial Thromboplastin Ratio 1.3; Partial Thromboplastin Time 36.7 Seconds (21.0-31.0); Prothrombin Time 12.3 Seconds (9.0-12.0)
[2019-05-27 12:54] LABS: Base Excess VBG 4.6 mEq/L; HCO3 VBG 31 mmol/L; PCO2 VBG 53 mmHg (38-50); PO2 VBG 22 mmHg; pH VBG 7.38 (7.36-7.41)
[2019-05-27 12:57] LABS: Oxygen Saturation VBG < 60.0 %
[2019-05-27 13:02] LABS: Alanine Aminotransferase 28 U/L (12-78); Alkaline Phosphatase 143 U/L (45-117); Bilirubin,Total 1.3 mg/dl (0.2-1); NT Pro B Type Natriuretic Pept 4596 pg/ml (0-1800); Phosphorus 3.4 mg/dl (2.5-4.9); Thyroid Stimulating Hormone 0.888 uIu/ml (0.300-4.500); Total Protein 7.9 gm/dl (6.4-8.2); Troponin I < 0.015 ng/ml (0-0.045)
[2019-05-27 14:16] LABS: Appearance Urine Clear (Clear); Bilirubin Urine Negative (Negative); Blood Urine Negative (Negative); Color Urine Yellow; Glucose Urine UA Negative (Negative); Ketones Urine Negative (Negative); Leukocyte Esterase Urine Negative (Negative); Nitrite Urine Negative (Negative); Protein Urine Negative (Negative); Urobilinogen Urine Negative (Negative); pH Urine 7.5 (4.5-7.5)
--- NOTE | 2019-05-27 14:53 | History & Physical Report ---
Date of Service May 27, 2019 Assessment & Plan (1) Acute on chronic diastolic congestive heart failure: Pulmonary edema and effusions seen on cxr along with LE edema. Already took lasix this am at home. Will give additional 20mg IV dose now, followed by 20mg IV BID starting in am. Adjust as needed for optimal diuresis. Last echo was 01/2018 per our records. Will obtain repeat echo to check aortic valve and LV function. Cont BB. Hold PO lasix. Cont lisinopril. Daily labs. (2) Pleural effusion: right-sided. suspect it is transudative from his CHF but will need fluid analysis for diagnosis (extensive tobacco history - need to ensure not malignant). had transudative effusion that required thoracentesis in 2018. doubt IV lasix will have any appreciable effect on it. I spoke with Dr Srivastava from thoracic who will see him in the am and consider thoracentesis. HOLD ELIQUIS. Suspect that the effusion is one of the main reasons for his dyspnea. (3) Dyspnea on exertion: Multifactorial - baseline COPD, mod/large right-sided pleural effusion, pulmonary edema, atelectasis of right lung as seen on CTA today, etc. Incentive spirometry. Diurese. Probable thoracentesis on right. Cont home inhalers including albuterol prn. NO evidence of PE on CTA chest today. (4) Essential (primary) hypertension: Controlled. Cont home meds. 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 Cont aspirin for secondary stroke prevention. Cont AFO for right foot drop. (6) Hepatic cirrhosis: CT imaging in 01/2018 showed signs of early cirrhosis. This could be contributing to fluid overload state but doubt. Does not seem to have any appreciable ascites on exam. No evidence of hepatic encephalopathy. (7) Permanent atrial fibrillation: Controlled. Pacemaker in place. Cont beta gini. Hold eliquis for probable thoracentesis. Place on telemetry. (8) Aortic stenosis: moderate in 2018. repeat echo ordered to reassess valve and see if is contributing to symptoms and CHF. (9) Hyponatremia: Likely due to chronic lasix use. Check serum osm, urine osm, and urine Na. BMP in am. (10) H/O: CVA (cerebrovascular accident): x 2. noted. cont asa for secondary prevention. need to hold eliquis for upcoming thoracentesis. resume following that procedure. (11) COPD (chronic obstructive pulmonary disease): see discussion above in "dyspnea" (12) GERD (gastroesophageal reflux disease): doesn't appear to be taking any meds at this time history in the EMR also lists ?Valladares's should really be on PPI if that is the case (13) BPH (benign prostatic hyperplasia): no issues cont home meds (14) Diabetes: history of such, but states that last HbA1c was near 6% and he is not taking any meds for such. place on DM diet and simply recheck a1c. check BSGs. he may just be pre-DM at this point. glucose today is 167 on BMP. (15) DVT prophylaxis: hold eliquis resume following thoracentesis extensively updated at bedside History of Present Illness Chief Complaint: progressive dyspnea Primary Care Provider: Mike West MD 88yo male with history of stroke x 2, right-sided hemiparesis, COPD, prior heavy tobacco dependence, pacemaker status, a.fib on chronic eliquis, and chronic diastolic CHF who presents with progressive GOODRICH for several weeks. Patient is a very poor historian due to cognitive impairment and therefore all information is taken from the record as well as his who provided significant history. reports that last week EMS was summoned to the house because of dyspnea but the patient ultimately refused to go to the hospital. For weeks he has had progressive GOODRICH. He now has GOODRICH with minimal activity (Transferring from the bed to the chair or wheelchair). [facility] [place] [facility] and had a chest x-ray with labs. His [facility] physician advised going to the hospital presumably because of his enlarging pleural effusion. The dyspnea is worst first thing in the am. He has a chronic cough "for years" and this is productive. Appetite has been normal. He has had no fevers or chills. ?mild weight gain but uncertain. He has had some LE edema and perhaps some abdominal swelling as well. Allergies Allergy/AdvReac Type Severity Reaction Status Date / Time clonidine Allergy Mild Unknown Verified 05/27/19 12:40 felodipine Allergy Mild Unknown Verified 05/27/19 12:40 Home Medications Home Medications Medication Instructions Recorded Confirmed Type Spiriva with HandiHaler 1 cap INHALATION QAM 12/21/17 05/27/19 History Calcium 600 + D(3) 2 tab PO QAM 04/24/18 05/27/19 History Probiotic 3,000 mmu cells PO DIRECTED 04/24/18 05/27/19 History acetaminophen [Tylenol Extra 1,000 mg PO HS 04/24/18 05/27/19 History Strength] aspirin 325 mg PO QAM 04/24/18 05/27/19 History magnesium oxide 400 mg PO BID 04/24/18 05/27/19 History multivitamin 1 tab PO QAM 04/24/18 05/27/19 History mupirocin 1 applic TOPICAL BID 04/24/18 05/27/19 History nitroglycerin 0.4 mg SUBLINGUAL DIRECTED PRN 04/24/18 05/27/19 History triamcinolone acetonide 0.1 % See Rx Instructions .ROUTE 12/28/18 05/27/19 Rx topical cream .COMPLEX #80 gm albuterol sulfate 90 mcg/actuation 1 - 2 puff INHALATION Q4 PRN #8 gm 03/12/19 05/27/19 Rx aerosol inhaler apixaban [Eliquis] 0 mg PO BID 05/27/19 05/27/19 History atorvastatin 10 mg PO QDD 05/27/19 05/27/19 History budesonide-formoterol [Symbicort] 2 puff INHALATION BIDM 05/27/19 05/27/19 History finasteride 5 mg PO QAM 05/27/19 05/27/19 History furosemide [Lasix] 40 mg PO QAM 05/27/19 05/27/19 History lisinopril 10 mg PO QAM 05/27/19 05/27/19 History metoprolol succinate 25 mg PO QDD 05/27/19 05/27/19 History potassium chloride [Klor-Con 10] 10 meq PO QAM 05/27/19 05/27/19 History sertraline 25 mg PO QAM 05/27/19 05/27/19 History Past Med/Surg History Surgical History H/O transurethral resection of prostate History of permanent cardiac pacemaker placement Hx of cataract surgery (Acute) Status post left knee replacement (Acute) Family History Mother Heart disease Sister Diabetes Father , age 32 Cancer unknown type Other Family history non-contributory Social History Preferred Language: Danish Communication Ability: Effective Visual Impairment: No Limitations Diesel Service Technician Required: No Beliefs That Will Affect Care: None marital status: Current Living Situation: Spouse Current Living Situation Comment: lives in [place] with current occupational status: retired Other Information That Helps Us Care for You: No other: worked as printer; has 2 children Feels Safe at Home: Yes Safety Concerns: Feels Safe At This Time Smoking Status: Former smoker Tobacco Type: cigarettes ; Age Quit Using Tobacco: 56 ; packs per day: 3 ; Do You Dip or Chew Tobacco: No ; Second Hand Exposure: No ; Tobacco Cessation Education Requested by Patient: No Hx Alcohol Use: No (stopped 2018 ) Hx Substance Use: No Seatbelt Use: always Review of Systems Constitutional: no fever, no chills and no anorexia Eyes: no worsening vision Ear, Nose, Mouth, Throat: + hearing loss Respiratory: + cough, + dyspnea, + dyspnea on exertion, + sputum production and + wheezing Cardiovascular: + edema; no chest pain and no orthopnea Gastrointestinal: no abdominal pain, no nausea, no vomiting and no c onstipation Genitourinary: no dysuria Musculoskeletal: no joint pain Integumentary: no rash Neurologic: + localized weakness (right leg ) Psychiatric: memory loss per Endocrine: no fatigue, no polydipsia and no polyphagia Hematologic / Lymphatic: no easy bleeding Physical Exam Constitutional: + altered mental status and + frail appearing; no acute distress Eyes: PERRL ENMT: Mouth: no oral mucosal abnormality and oral mucous membranes not dry hearing aids in place b/l Neck: trachea midline, no thyromegaly Respiratory: no respiratory distress Auscultation: + diminished lung sounds (right base extending 2/[address] way up ), + crackles (left lung) and + wheezes (b/l ) Cardiovascular: Rate/Rhythm: + irregularly irregular Heart Sounds: normal S1, normal S2 and + murmur (1/6 RUSB) Vessels: posterior tibial pulses present and dorsalis pedis pulses present; no JVD Extremities: + edema (<1+ b/l ) Gastrointestinal (Abdomen): normal bowel sounds, soft, nontender, no hepatosplenomegaly Musculoskeletal: AFO right ankle/foot Skin: no rashes, warm and dry Neurologic: + focal motor deficit (right foot drop) brisk reflexes, 3+, right arm and right leg; left arm/left leg 2+ reflexes Psychiatric: Orientation: alert, oriented to person and oriented to place Lymphatic: no cervical lymphadenopathy Results & Data Results & Data ([facility]) Vital Signs (Past 12 Hours) Vital Signs Temp Pulse Pulse Resp BP BP Pulse Ox 05/27/19 14:00 82 20 124/87 92 05/27/19 12:25 93 05/27/19 12:19 92 05/27/19 12:01 36.5 C 62 22 150/74 H 94 Laboratory Results Laboratory Results - last 24 hr 05/27/19 05/27/19 05/27/19 12:23 12:25 12:25 WBC 7.95 RBC 4.89 Hgb 14.5 Hct 42.5 MCV 86.9 MCH 29.7 MCHC 34.1 RDW Std Deviation 42.4 RDW Coeff of Dol[place] 13.3 Plt Count 213 MPV 10.4 Immature Gran % (Auto) 0.3 Neut % (Auto) 79.6 Lymph % (Auto) 12.2 [place] % (Auto) 7.2 Eos % (Auto) 0.4 Baso % (Auto) 0.3 Immature Gran # (Auto) 0.02 Neut # (Auto) 6.34 Lymph # (Auto) 0.97 L [place] # (Auto) 0.57 Eos # (Auto) 0.03 Baso # (Auto) 0.02 PT 12.3 H INR 1.2 H APTT 36.7 H PTT Ratio 1.3 VBG pH VBG pCO2 VBG pO2 VBG HCO3 VBG O2 Saturation VBG Base Excess Barometric Pressure Sodium Potassium Chloride Carbon Dioxide Anion Gap BUN Creatinine Est Cr Clr Drug Dosing Est GFR ( Amer) Est GFR (Non-Af Amer) BUN/Creatinine Ratio Glucose Osmolality 282 Calcium Phosphorus Magnesium Total Bilirubin AST ALT Alkaline Phosphatase Troponin I NT-Pro-B Natriuret Pep Total Protein Albumin Globulin Albumin/Globulin Ratio Lipase TSH Urine Color Urine Appearance Urine pH Ur Specific [place] Urine Protein Urine Glucose (UA) Urine Ketones Urine Blood Urine Nitrite Urine Bilirubin Urine Urobilinogen Ur Leukocyte Esterase 05/27/19 05/27/19 05/27/19 12:25 12:46 14:03 WBC RBC Hgb Hct MCV MCH MCHC RDW Std Deviation RDW Coeff of [place] Plt Count MPV Immature Gran % (Auto) Neut % (Auto) Lymph % (Auto) [place] % (Auto) Eos % (Auto) Baso % (Auto) Immature Gran # (Auto) Neut # (Auto) Lymph # (Auto) [place] # (Auto) Eos # (Auto) Baso # (Auto) PT INR APTT PTT Ratio VBG pH 7.38 VBG pCO2 53 H VBG pO2 22 VBG HCO3 31 VBG O2 Saturation < 60.0 VBG Base Excess 4.6 Barometric Pressure 717.5 Sodium 129 L Potassium 4.1 Chloride 93 L Carbon Dioxide 29 Anion Gap 7.0 BUN 14 Creatinine 0.81 Est Cr Clr Drug Dosing Not Reportable Est GFR ( Amer) 92.6 Est GFR (Non-Af Amer) 79.9 BUN/Creatinine Ratio 17.7 Glucose 167 H Osmolality Calcium 9.4 Phosphorus 3.4 Magnesium 1.9 Total Bilirubin 1.3 H AST 23 ALT 28 Alkaline Phosphatase 143 H Troponin I < 0.015 NT-Pro-B Natriuret Pep 4596 H Total Protein 7.9 Albumin 3.9 Globulin 4.0 Albumin/Globulin Ratio 1.0 Lipase 97 TSH 0.888 Urine Color Yellow Urine Appearance Clear Urine pH 7.5 Ur Specific [place] 1.010 Urine Protein Negative Urine Glucose (UA) Negative Urine Ketones Negative Urine Blood Negative Urine Nitrite Negative Urine Bilirubin Negative Urine Urobilinogen Negative Ur Leukocyte Esterase Negative Diagnostic Findings cxr - pulm edema, right sided effusion (mod-large); likely small effusion on left EKG - pacemaker spikes, underlying a.fib, PVCs, no ST changes Code Status & VTE Plan Code Status partial code - no intubation/mech ventilation but wishes for chest compressions, shocks, and meds PG Care Time/CCT Total # of Minutes Spent Total Time Spent with Patient: Total time spent is greater than 50% in coordination of care (as documented) at patient's floor/unit and/or counseling patient: Coding Level of Care Code 19119 Initial Inpt Care Lvl 3 Diagnoses Acute on chronic diastolic congestive heart failure I50.33 Pleural effusion J90 Dyspnea on exertion R06.00 Essential (primary) hypertension I10 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 I63.9; G81.91 Hepatic cirrhosis K74.69 Hepatic cirrhosis type: other cirrhosis Permanent atrial fibrillation I48.2 Aortic stenosis I35.0 Cardiac valve disease etiology: etiology unspecified Hyponatremia E87.1 H/O: CVA (cerebrovascular accident) Z86.73 COPD (chronic obstructive pulmonary disease) J44.9 COPD type: unspecified COPD GERD (gastroesophageal reflux disease) K21.9 Esophagitis presence: esophagitis presence not specified BPH (benign prostatic hyperplasia) N40.1; R39.11 Lower urinary tract symptom presence: symptoms present Lower urinary tract symptom detail: urinary hesitancy Diabetes E11.9 Diabetes mellitus type: type 2 Diabetes mellitus mcc insulin use: without mcc use Diabetes mellitus complication status: without complication DVT prophylaxis Z29.9 (1) Hepatic cirrhosis Hepatic cirrhosis type: other cirrhosis Qualified Code(s): K74.69 - Other cirrhosis of liver (2) Aortic stenosis Cardiac valve disease etiology: etiology unspecified Qualified Code(s): I35.0 - Nonrheumatic aortic (valve) stenosis (3) COPD (chronic obstructive pulmonary disease) COPD type: unspecified COPD Qualified Code(s): J44.9 - Chronic obstructive pulmonary disease, unspecified (4) GERD (gastroesophageal reflux disease) Esophagitis presence: esophagitis presence not specified Qualified Code(s): K21.9 - Gastro-esophageal reflux disease without esophagitis (5) BPH (benign prostatic hyperplasia) Lower urinary tract symptom presence: symptoms present Lower urinary tract symptom detail: urinary hesitancy Qualified Code(s): N40.1 - Benign prostatic hyperplasia with lower urinary tract symptoms; R39.11 - Hesitancy of micturition (6) Diabetes Diabetes mellitus type: type 2 Diabetes mellitus mcc insulin use: without mcc use Diabetes mellitus complication status: without complication Qualified Code(s): E11.9 - Type 2 diabetes mellitus without complications
[2019-05-27] MEDS ORDERED: FUROSEMIDE 40 MG/4 ML VIAL IV STA (15:32)
[2019-05-27] MEDS ORDERED: OPTIRAY 320 125ml IV PRN (15:39)
--- NOTE | 2019-05-27 15:57 | CT Scan Report ---
CT angio chest PE protocol CT DOSE: 493.30 mGy.cm HISTORY: 88 years-old Male with PE. Acute shortness of breath TECHNIQUE: Multiple CTA images of the chest were obtained after the intravenous administration of 119 ml Optiray 320. Coronal and sagittal MIPS were obtained from the axial data set and were submitted for review. All measurements were obtained according to NASCET criteria. A dose lowering technique w as utilized adhering to the principles of ALARA. COMPARISON: CTA of the chest 04/24/2018 FINDINGS: CTA: Heart is moderately enlarged. No pericardial effusion. Dense mitral and aortic annular calcifications are present in addition to coronary arterial and left ventricular papillary muscle calcifications. L eft heart structures are not well evaluated secondary to contrast bolus timing. There is no thoracic aortic aneurysm. Advanced calcified plaque the thoracic aortic arch and proximal great vessels. Right subclavian single lead pacer is noted with lead overlying the right ventricle. Reflux of contrast in to the IVC. There is decreased opacification of the right lung base pulmonary arterial tree likely se condary to shunting. No discrete pulmonary embolus identified. Respiratory motion artifact limits judit luation of the lung bases. CT CHEST: Unremarkable thyroid. No pathologically enlarged lymph nodes identified by CT size criteria. Prominen t paratracheal lymph nodes measure up to 9 mm. Small left and large right pleural effusions have incr eased in size from comparison. Dependent bibasilar consolidation, right greater than left. Advanced e mphysema. Mild loss with partial collapse of the right lower and middle lobes with mucous plugging of the right mainstem bronchus, bronchus intermedius, right middle and lower lobe bronchi. Respiratory motion artifact limits evaluation of the lung parenchyma. No acute process of the imaged upper abdomen. Soft tissues are unremarkable. Remote appearing deformi ty of the posterior lateral left seventh and eighth ribs. Marginal nodularity of the liver suggests c irrhosis. IMPRESSION: 1. Limited exam secondary to respiratory motion. Cardiomegaly without evidence of pulmonary thromboem bolic disease. Decreased opacification of the right lung base pulmonary arterial tree is likely secon moiz to shunting. 2. Large right and small left pleural effusions have increased in size in the interval. 3. Extensive mucous plugging of the right lung with volume loss and partial collapse of the right mid dle and lower lobes. 4. Right greater than left bibasilar consolidation is suggestive of probable atelectasis. Correlate c linically to exclude superimposed pneumonia. 5. Advanced emphysema. 6. Additional findings as above. ACT 112: Negative or not required by law. The above report was generated using voice recognition software. It may contain grammatical, syntax o r spelling errors. Electronically signed by: Tr Nam M.D. 05/27/2019 3:55 PM
[2019-05-27] MEDS ORDERED: NITROGLYCERIN SL 0.4 MG/TAB TAB SL PRN (16:40)
[2019-05-27] MEDS ORDERED: POLYETHYLENE (MIRALAX) 17 GM PACK PO PRN (16:40)
[2019-05-27] MEDS ORDERED: ONDANSETRON INJ 2 MG/ML 2 ML VIAL IV PRN (16:40)
[2019-05-27] MEDS ORDERED: ACETAMINOPHEN 325 MG TAB PO PRN (16:40)
[2019-05-27] MEDS: METOPROLOL SUCC 25MG EXT REL TAB PO SCH (17:39)
[2019-05-27] MEDS: ATORVASTATIN 10 MG TAB PO SCH (17:39)
[2019-05-27] MEDS: FLUTICASONE/VILANTEROL 100/25MCG 14 PUFFS/INHALER INH SCH (17:39)
[2019-05-27] MEDS: MAGNESIUM OXIDE 400 MG TAB PO SCH (20:14)
[2019-05-27] MEDS: guaiFENesin 600 MG TABCR PO SCH (20:14)
[2019-05-27] MEDS: ACETAMINOPHEN 500 MG TAB PO SCH (20:15)
[2019-05-27] MEDS: MUPIROCIN 2% OINT 22 GM TUBE EXT SCH (20:18)
[2019-05-28 06:05] LABS: Estimated Average Glucose 151 mg/dl; Hemoglobin A1C 6.9 % (4.5-5.6)
[2019-05-28 06:34] LABS: BUN Creatinine Ratio 16.8 (10-20); Calcium 9.2 mg/dl (8.5-10.1); Creatinine Clr Calc Pharmacy 56.1 ml/min; Potassium 3.9 mmol/L (3.5-5.1)
[2019-05-28] MEDS: MUPIROCIN 2% OINT 22 GM TUBE EXT SCH ×2 (07:52→20:42)
[2019-05-28] MEDS: FLUTICASONE/VILANTEROL 100/25MCG 14 PUFFS/INHALER INH SCH (07:52)
[2019-05-28] MEDS: CALCIUM 600MG + VIT D 400 IU TAB PO SCH (07:54)
[2019-05-28] MEDS: ASPIRIN 325 MG ECTAB PO SCH (07:55)
[2019-05-28] MEDS: LACTOBACILLUS ACIDOPHILUS (FLORANEX) TAB PO SCH (07:55)
[2019-05-28] MEDS: POTASSIUM CHLORIDE 10 MEQ TABCR PO SCH (07:55)
[2019-05-28] MEDS: UMECLIDINIUM BROMIDE 62.5MCG/BLISTER 7 PUFFS/INHALER INH SCH (07:57)
[2019-05-28] MEDS: MAGNESIUM OXIDE 400 MG TAB PO SCH ×2 (07:58→20:45)
[2019-05-28] MEDS: guaiFENesin 600 MG TABCR PO SCH ×2 (07:58→20:44)
[2019-05-28] MEDS: SERTRALINE HCL 50 MG TABLET PO SCH (07:59)
[2019-05-28] MEDS: lisinopriL 10 MG TAB PO SCH (07:59)
[2019-05-28] MEDS: MULTIVITAMIN TAB PO SCH (07:59)
[2019-05-28] MEDS: FINASTERIDE 5 MG TAB PO SCH (07:59)
[2019-05-28] MEDS: FUROSEMIDE 20 MG in SYRINGE 0 ML IV SCH ×2 (10:12→16:56)
[2019-05-28] MEDS: ALBUTEROL HFA 8 GM INHALER INH PRN (13:16)
--- NOTE | 2019-05-28 14:16 | XCELERA ---
[id number] \\[email or web address]\[id number]_[id number]___[id number]
[2019-05-28] MEDS: ATORVASTATIN 10 MG TAB PO SCH (16:56)
[2019-05-28] MEDS: METOPROLOL SUCC 25MG EXT REL TAB PO SCH (16:57)
[2019-05-28] MEDS: ACETAMINOPHEN 500 MG TAB PO SCH (20:44)
--- NOTE | 2019-05-28 23:11 | Hospitalist Progress Note ---
Date of Service May 28, 2019 Assessment & Plan (1) Acute on chronic diastolic congestive heart failure: Pulmonary edema and effusions seen on cxr along with LE edema. Already took lasix this am at home. Patient continues to be on IV lasix. No significant improvement. Continues to require oxygen. Adjust as needed for optimal diuresis. Last echo was 01/2018 per our records. reviewed new echo. Cont BB. Hold PO lasix. Cont lisinopril. will monitor daily labs (2) Pleural effusion: right-sided. suspect it is transudative from his CHF but will need fluid analysis for diagnosis (extensive tobacco history - need to ensure not malignant). had transudative effusion that required thoracentesis in 2018. doubt IV lasix will have any appreciable effect on it. I spoke with Dr Srivastava from thoracic who will see him in the am and consider thoracentesis. HOLD ELIQUIS. Suspect that the effusion is one of the main reasons for his dyspnea. (3) Dyspnea on exertion: Multifactorial - baseline COPD, mod/large right-sided pleural effusion, pulmonary edema, atelectasis of right lung as seen on CTA today, etc. Incentive spirometry. Diurese. Probable thoracentesis on right. Cont home inhalers including albuterol prn. NO evidence of PE on CTA chest today. (4) Essential (primary) hypertension: Controlled. Cont home meds. 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 Cont aspirin for secondary stroke prevention. Cont AFO for right foot drop. (6) Hepatic cirrhosis: CT imaging in 01/2018 showed signs of early cirrhosis. This could be contributing to fluid overload state but doubt. Does not seem to have any appreciable ascites on exam. No evidence of hepatic encephalopathy. (7) Permanent atrial fibrillation: Controlled. Pacemaker in place. Cont beta gini. Hold eliquis for probable thoracentesis. Place on telemetry. (8) Aortic stenosis: moderate in 2018. repeat echo ordered to reassess valve and see if is contributing to symptoms and CHF. (9) Hyponatremia: Likely due to chronic lasix use. Check serum osm, urine osm, and urine Na. BMP in am. (10) H/O: CVA (cerebrovascular accident): x 2. noted. cont asa for secondary prevention. need to hold eliquis for upcoming thoracentesis. resume following that procedure. (11) COPD (chronic obstructive pulmonary disease): see discussion above in "dyspnea" (12) GERD (gastroesophageal reflux disease): doesn't appear to be taking any meds at this time history in the EMR also lists ?Valladares's should really be on PPI if that is the case (13) BPH (benign prostatic hyperplasia): no issues cont home meds (14) Diabetes: history of such, but states that last HbA1c was near 6% and he is not taking any meds for such. place on DM diet and simply recheck a1c. check BSGs. he may just be pre-DM at this point. (15) DVT prophylaxis: hold eliquis resume following thoracentesis Admission and Anticipated Discharge Date Admission Date: May 27, 2019 Subjective 88 yo male reports no significant improvement from yesterday. However he reports no new symptoms. Review of Systems Ear, Nose, Mouth, Throat: + hearing loss Respiratory: + cough, + dyspnea, + dyspnea on exertion, + sputum production and + wheezing Cardiovascular: + edema; no chest pain and no orthopnea Neurologic: + localized weakness (right leg ) Psychiatric: memory loss per (on admission) Physical Exam Physical Exam: Constitutional: + frail appearing; no acute distress Eyes: PERRL ENMT: Mouth: no oral mucosal abnormality and oral mucous membranes not dry hearing aids in place b/l Neck: trachea midline, no thyromegaly Respiratory: no respiratory distress Auscultation: + diminished lung sounds, + crackles (left lung) Cardiovascular: Rate/Rhythm: + irregularly irregular Heart Sounds: normal S1, normal S2 and + murmur (1/6 RUSB) Vessels: posterior tibial pulses present and dorsalis pedis pulses present; no JVD Extremities: + edema (<1+ b/l ) Gastrointestinal (Abdomen): normal bowel sounds, soft, nontender, no hepatosplenomegaly Musculoskeletal: AFO right ankle/foot Skin: no rashes, warm and dry Neurologic: + focal motor deficit (right foot drop) brisk reflexes, 3+, right arm and right leg; left arm/left leg 2+ reflexes Psychiatric: Orientation: alert, oriented to person and oriented to place Lymphatic: no cervical lymphadenopathy Results & Data Results & Data ([facility]) Vital Signs (Past 12 Hours) Vital Signs Temp Pulse Resp BP BP Pulse Ox 05/28/19 19:00 36.6 C 60 20 112/60 98 05/28/19 18:12 97 05/28/19 15:37 36.7 C 69 18 109/51 L 92 05/28/19 11:19 36.4 C L 69 20 118/66 91 PG Care Time/CCT Total # of Minutes Spent Total Time Spent with Patient: Total time spent is greater than 50% in coordination of care (as documented) at patient's floor/unit and/or counseling patient: Coding Level of Care Code 05129 Subseq Hosp Care Lvl 2 Diagnoses Acute on chronic diastolic congestive heart failure I50.33 Pleural effusion J90 Dyspnea on exertion R06.00 Essential (primary) hypertension I10 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 I63.9; G81.91 Hepatic cirrhosis K74.69 Hepatic cirrhosis type: other cirrhosis Permanent atrial fibrillation I48.2 Aortic stenosis I35.0 Cardiac valve disease etiology: etiology unspecified Hyponatremia E87.1 H/O: CVA (cerebrovascular accident) Z86.73 COPD (chronic obstructive pulmonary disease) J44.9 COPD type: unspecified COPD GERD (gastroesophageal reflux disease) K21.9 Esophagitis presence: esophagitis presence not specified BPH (benign prostatic hyperplasia) N40.1; R39.11 Lower urinary tract symptom detail: urinary hesitancy Lower urinary tract symptom presence: symptoms present Diabetes E11.9 Diabetes mellitus complication status: without complication Diabetes mellitus petroleum terminal plant operator insulin use: without petroleum terminal plant operator use Diabetes mellitus type: type 2 DVT prophylaxis Z29.9 Time Spent (min) 25 (1) BPH (benign prostatic hyperplasia) Lower urinary tract symptom detail: urinary hesitancy Lower urinary tract symptom presence: symptoms present Qualified Code(s): N40.1 - Benign prostatic hyperplasia with lower urinary tract symptoms; R39.11 - Hesitancy of micturition (2) Diabetes Diabetes mellitus complication status: without complication Diabetes mellitus half-way insulin use: without half-way use Diabetes mellitus type: type 2 Qualified Code(s): E11.9 - Type 2 diabetes mellitus without complications (3) Aortic stenosis Cardiac valve disease etiology: etiology unspecified Qualified Code(s): I35.0 - Nonrheumatic aortic (valve) stenosis (4) Hepatic cirrhosis Hepatic cirrhosis type: other cirrhosis Qualified Code(s): K74.69 - Other cirrhosis of liver (5) COPD (chronic obstructive pulmonary disease) COPD type: unspecified COPD Qualified Code(s): J44.9 - Chronic obstructive pulmonary disease, unspecified (6) GERD (gastroesophageal reflux disease) Esophagitis presence: esophagitis presence not specified Qualified Code(s): K21.9 - Gastro-esophageal reflux disease without esophagitis
[2019-05-29] MEDS: ALBUTEROL HFA 8 GM INHALER INH PRN ×2 (08:33→13:37)
[2019-05-29] MEDS: MUPIROCIN 2% OINT 22 GM TUBE EXT SCH ×2 (08:34→20:00)
[2019-05-29] MEDS: CALCIUM 600MG + VIT D 400 IU TAB PO SCH (08:36)
[2019-05-29] MEDS: FLUTICASONE/VILANTEROL 100/25MCG 14 PUFFS/INHALER INH SCH (08:36)
[2019-05-29] MEDS: ASPIRIN 325 MG ECTAB PO SCH (08:36)
[2019-05-29] MEDS: POTASSIUM CHLORIDE 10 MEQ TABCR PO SCH (08:36)
[2019-05-29] MEDS: LACTOBACILLUS ACIDOPHILUS (FLORANEX) TAB PO SCH (08:36)
[2019-05-29] MEDS: UMECLIDINIUM BROMIDE 62.5MCG/BLISTER 7 PUFFS/INHALER INH SCH (08:36)
[2019-05-29] MEDS: FINASTERIDE 5 MG TAB PO SCH (08:37)
[2019-05-29] MEDS: MULTIVITAMIN TAB PO SCH (08:37)
[2019-05-29] MEDS: SERTRALINE HCL 50 MG TABLET PO SCH (08:37)
[2019-05-29] MEDS: MAGNESIUM OXIDE 400 MG TAB PO SCH ×2 (08:37→20:00)
[2019-05-29] MEDS: guaiFENesin 600 MG TABCR PO SCH ×2 (08:37→20:00)
[2019-05-29] MEDS: FUROSEMIDE 20 MG in SYRINGE 0 ML IV SCH ×2 (09:48→16:31)
[2019-05-29] MEDS: lisinopriL 10 MG TAB PO SCH (09:49)
[2019-05-29 14:52] LABS: Hematocrit (blood only) 41.6 % (42-52); Hemoglobin 13.8 g/dL (14.0-18.0); Mean Corpuscular Hgb Conc 33.2 g/dL (32-36); Mean Corpuscular Volume 87.4 fL (80-100); Mean Platelet Volume 10.6 fL (7.4-10.4); Platelet Count 216 K/uL (130-400); RDW Coefficient of Variation 13.3 % (11.5-14.5); RDW Standard Deviation 42.6 fL (36.4-46.3); Red Blood Count 4.76 M/uL (4.7-6.1); White Blood Count 12.72 K/uL (4.8-10.8)
[2019-05-29 15:10] LABS: BUN Creatinine Ratio 25.3 (10-20); Calcium 9.1 mg/dl (8.5-10.1); Creatinine Clr Calc Pharmacy 65.1 ml/min; Est GFR (African American) 90.8; Est GFR (Non-African American) 78.3; Potassium 4.4 mmol/L (3.5-5.1)
[2019-05-29] MEDS: METOPROLOL SUCC 25MG EXT REL TAB PO SCH (16:30)
[2019-05-29] MEDS: ATORVASTATIN 10 MG TAB PO SCH (16:31)
[2019-05-29] MEDS: ACETAMINOPHEN 500 MG TAB PO SCH (20:00)
--- NOTE | 2019-05-29 22:36 | Hospitalist Progress Note ---
Date of Service May 29, 2019 Assessment & Plan (1) Acute on chronic diastolic congestive heart failure: Pulmonary edema and effusions seen on cxr along with LE edema. Patient continues to be on IV lasix. No significant improvement. Continues to require oxygen. Awaiting thoracocenthesis which will be completed on 05/29.. Last echo was 01/2018 per our records. reviewed new echo. Cont BB. Hold PO lasix. Cont lisinopril. will monitor daily labs (2) Pleural effusion: right-sided. suspect it is transudative from his CHF but will need fluid analysis for diagnosis (extensive tobacco history - need to ensure not malignant). had transudative effusion that required thoracentesis in 2018. doubt IV lasix will have any appreciable effect on it. I spoke with Dr Srivastava from thoracic who will see him ON FRIDAY as patient had not improved with diuretics.. HOLD ELIQUIS. Suspect that the effusion is one of the main reasons for his dyspnea. (3) Dyspnea on exertion: Multifactorial - baseline COPD, mod/large right-sided pleural effusion, pulmonary edema, atelectasis of right lung as seen on CTA today, etc. Incentive spirometry. Diurese. Probable thoracentesis on right. Cont home inhalers including albuterol prn. NO evidence of PE on CTA chest today. (4) Essential (primary) hypertension: Controlled. Cont home meds. 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 Cont aspirin for secondary stroke prevention. Cont AFO for right foot drop. (6) Hepatic cirrhosis: CT imaging in 01/2018 showed signs of early cirrhosis. This could be contributing to fluid overload state but doubt. Does not seem to have any appreciable ascites on exam. No evidence of hepatic encephalopathy. (7) Permanent atrial fibrillation: Controlled. Pacemaker in place. Cont beta gini. Hold eliquis for probable thoracentesis. Place on telemetry. (8) Aortic stenosis: moderate in 2018. repeat echo ordered to reassess valve and see if is contributing to symptoms and CHF. (9) Hyponatremia: Likely due to chronic lasix use. Check serum osm, urine osm, and urine Na. BMP in am. (10) H/O: CVA (cerebrovascular accident): x 2. noted. cont asa for secondary prevention. need to hold eliquis for upcoming thoracentesis. resume following that procedure. (11) COPD (chronic obstructive pulmonary disease): see discussion above in "dyspnea" (12) GERD (gastroesophageal reflux disease): doesn't appear to be taking any meds at this time history in the EMR also lists ?Valladares's should really be on PPI if that is the case (13) BPH (benign prostatic hyperplasia): no issues cont home meds (14) Diabetes: history of such, but states that last HbA1c was near 6% and he is not taking any meds for such. place on DM diet and simply recheck a1c. check BSGs. he may just be pre-DM at this point. (15) DVT prophylaxis: hold eliquis resume following thoracentesis Admission and Anticipated Discharge Date Admission Date: May 27, 2019 Subjective 88 yo male reports no significant change in his symptoms. Still feels SOB. Review of Systems Review of Systems: All systems reviewed & are unremarkable except as noted in HPI & below Physical Exam Physical Exam: Constitutional: + frail appearing; no acute distress Eyes: PERRL ENMT: Mouth: no oral mucosal abnormality and oral mucous membranes not dry hearing aids in place b/l Neck: trachea midline, no thyromegaly Respiratory: no respiratory distress Auscultation: + diminished lung sounds, + crackles (left lung) Cardiovascular: Rate/Rhythm: + irregularly irregular Heart Sounds: normal S1, normal S2 and + murmur (1/6 RUSB) Vessels: posterior tibial pulses present and dorsalis pedis pulses present; no JVD Extremities: + edema (<1+ b/l ) Gastrointestinal (Abdomen): normal bowel sounds, soft, nontender, no hepatosplenomegaly Musculoskeletal: AFO right ankle/foot Skin: no rashes, warm and dry Neurologic: + focal motor deficit (right foot drop) brisk reflexes, 3+, right arm and right leg; left arm/left leg 2+ reflexes Psychiatric: Orientation: alert, oriented to person and oriented to place Lymphatic: no cervical lymphadenopathy Results & Data Results & Data ([facility]) Vital Signs (Past 12 Hours) Vital Signs Temp Pulse Pulse Pulse Resp BP BP 05/29/19 19:00 36.8 C 69 22 99/63 L 05/29/19 16:30 67 112/67 05/29/19 16:17 62 04/11/20 16:00 37.1 C 56 L 20 100/56 L 05/29/19 13:35 36.6 C 61 28 H 136/73 05/29/19 11:30 36.5 C 70 20 133/75 Pulse Ox 05/29/19 19:00 93 05/29/19 16:30 05/29/19 16:17 05/29/19 16:00 92 05/29/19 13:35 93 05/29/19 11:30 96 PG Care Time/CCT Total # of Minutes Spent Total Time Spent with Patient: Total time spent is greater than 50% in coordination of care (as documented) at patient's floor/unit and/or counseling patient: Coding Level of Care Code 87540 Subseq Hosp Care Lvl 2 Diagnoses Acute on chronic diastolic congestive heart failure I50.33 Pleural effusion J90 Dyspnea on exertion R06.00 Essential (primary) hypertension I10 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 I63.9; G81.91 Hepatic cirrhosis K74.69 Hepatic cirrhosis type: other cirrhosis Permanent atrial fibrillation I48.2 Aortic stenosis I35.0 Cardiac valve disease etiology: etiology unspecified Hyponatremia E87.1 H/O: CVA (cerebrovascular accident) Z86.73 COPD (chronic obstructive pulmonary disease) J44.9 COPD type: unspecified COPD GERD (gastroesophageal reflux disease) K21.9 Esophagitis presence: esophagitis presence not specified BPH (benign prostatic hyperplasia) N40.1; R39.11 Lower urinary tract symptom detail: urinary hesitancy Lower urinary tract symptom presence: symptoms present Diabetes E11.9 Diabetes mellitus complication status: without complication Diabetes mellitus halfway insulin use: without terminologist use Diabetes mellitus type: type 2 DVT prophylaxis Z29.9 Time Spent (min) 25 (1) BPH (benign prostatic hyperplasia) Lower urinary tract symptom detail: urinary hesitancy Lower urinary tract symptom presence: symptoms present Qualified Code(s): N40.1 - Benign prostatic hyperplasia with lower urinary tract symptoms; R39.11 - Hesitancy of micturition (2) Diabetes Diabetes mellitus complication status: without complication Diabetes mellitus halfway insulin use: without terminologist use Diabetes mellitus type: type 2 Qualified Code(s): E11.9 - Type 2 diabetes mellitus without complications (3) Aortic stenosis Cardiac valve disease etiology: etiology unspecified Qualified Code(s): I35.0 - Nonrheumatic aortic (valve) stenosis (4) Hepatic cirrhosis Hepatic cirrhosis type: other cirrhosis Qualified Code(s): K74.69 - Other cirrhosis of liver (5) COPD (chronic obstructive pulmonary disease) COPD type: unspecified COPD Qualified Code(s): J44.9 - Chronic obstructive pulmonary disease, unspecified (6) GERD (gastroesophageal reflux disease) Esophagitis presence: esophagitis presence not specified Qualified Code(s): K21.9 - Gastro-esophageal reflux disease without esophagitis
[2019-05-30] MEDS: guaiFENesin 600 MG TABCR PO SCH ×2 (08:37→21:24)
[2019-05-30] MEDS: MUPIROCIN 2% OINT 22 GM TUBE EXT SCH ×2 (08:37→21:27)
[2019-05-30] MEDS: MAGNESIUM OXIDE 400 MG TAB PO SCH ×2 (08:37→21:26)
[2019-05-30] MEDS: FUROSEMIDE 20 MG in SYRINGE 0 ML IV SCH ×2 (08:37→16:31)
[2019-05-30] MEDS: UMECLIDINIUM BROMIDE 62.5MCG/BLISTER 7 PUFFS/INHALER INH SCH (08:37)
[2019-05-30] MEDS: FLUTICASONE/VILANTEROL 100/25MCG 14 PUFFS/INHALER INH SCH (08:37)
[2019-05-30] MEDS: CALCIUM 600MG + VIT D 400 IU TAB PO SCH (08:37)
[2019-05-30] MEDS: LACTOBACILLUS ACIDOPHILUS (FLORANEX) TAB PO SCH (08:37)
[2019-05-30] MEDS: POTASSIUM CHLORIDE 10 MEQ TABCR PO SCH (08:38)
[2019-05-30] MEDS: lisinopriL 10 MG TAB PO SCH (08:38)
[2019-05-30] MEDS: SERTRALINE HCL 50 MG TABLET PO SCH (08:38)
[2019-05-30] MEDS: FINASTERIDE 5 MG TAB PO SCH (08:38)
[2019-05-30] MEDS: MULTIVITAMIN TAB PO SCH (08:38)
[2019-05-30] MEDS: ASPIRIN 325 MG ECTAB PO SCH (08:38)
[2019-05-30] MEDS ORDERED: LIDOCAINE HCL 1% 20 ML VIAL ONE (12:19)
--- NOTE | 2019-05-30 12:58 | XRay Report ---
XR chest 1V portable CLINICAL HISTORY: Chest x-ray status post thoracentesis COMPARISON STUDY: 05/27/2019 FINDINGS: There is a right subclavian single chamber central venous pacemaker. The heart remains enla rged. The patient is status post a right-sided thoracentesis. There is interval decrease in the amoun t of right pleural fluid. There is no pneumothorax. There are improving basilar airspace opacities.[ IMPRESSION: 1. No evidence of pneumothorax status post right-sided thoracentesis. 2. Resolving pulmonary vascular congestion. Improving aeration of the lung bases. ACT 112: Negative or not required by law. Electronically signed by: Tonio Perez M.D. 05/30/2019 12:57 PM
--- NOTE | 2019-05-30 13:05 | Consultation Report ---
DATE OF CONSULTATION: 05/30/2019 REASON FOR CONSULTATION: Recurrent right pleural effusion. HISTORY OF PRESENT ILLNESS: Alexandre Steele is a very nice 88-year-old fairly functional man who I know well. I have not seen him for a year. Back in on 04/25/2018, I performed a right thoracentesis for 1750 mL of a rust-colored fluid. This was benign. He improved after this. I had seen him once in the office, but quite frankly he has done very well. He had a pacemaker placed and has improved. He presented now with pulmonary edema and lower extremity edema with effusions. He was admitted by Dr. Bridges 3 days ago. He has not improved as well as we would have liked from diuresing. This persistent effusion is causing him symptoms. For this reason, we elected to proceed with a thoracentesis. I discussed it this morning with the patient. He was quite eager to have the fluid drained as he felt better last year after this was done. We had discussed a PleurX catheter in the past and we agreed that we would not need to insert that at this point. PAST MEDICAL HISTORY: 1. Recurrent right pleural effusion. 2. Hypertension. 3. History of cigarette smoking. 4. CVA with right-sided weakness. 5. Cirrhosis. 6. Chronic atrial fibrillation. 7. Moderate aortic stenosis. 8. Hyponatremia. 9. Chronic obstructive pulmonary disease. 10. Gastroesophageal reflux disease. 11. Benign prostatic hypertrophy. 12. Hyperglycemia. PAST SURGICAL HISTORY: 1. Insertion of a pacemaker. 2. Left total knee arthroplasty. 3. Cataract surgery. 4. Transurethral resection of the prostate. MEDICATIONS: Please see chart. The patient is on Eliquis, but this has been held. ALLERGIES: CLONIDINE AND FELODIPINE CAUSE MILD REACTIONS. SOCIAL HISTORY: The patient lives with his . FAMILY MEDICAL HISTORY: Noncontributory in this patient who is 88. REVIEW OF SYSTEMS: The patient denied fevers or productive cough. He does have increasing edema, increasing dyspnea on exertion but no chest pain or orthopnea. He has had no hemoptysis or green or yellow sputum. The patient wears hearing aids. He also wears glasses but has had no acute changes. He does have edema and also has a right hemiplegia, which is rather mild with weakness in his right leg and hand. He has also had some bleeding from what appeared to be venous stasis ulcers on the right leg. He has a right foot drop also. PHYSICAL EXAMINATION: GENERAL: This is an elderly appearing 88-year-old male who while hard of hearing, is awake, alert and oriented. VITAL SIGNS: He is on 2 liters of O2 with 94% sats. LUNGS: Decreased breath sounds with dullness to percussion on the right relative to the left. CHEST: He has a well-healed infraclavicular pacemaker site. ABDOMEN: Soft. EXTREMITIES: He has 1+ edema with some erythema of the right lower leg with some excoriations. NEUROLOGIC: He is moving all extremities to command, although he is obviously weak on the right side. ASSESSMENT AND PLAN: Chronic recurrent right pleural effusion. We are going to perform a thoracentesis for symptomatic relief. We will send this off for studies also. This has been a transudate, which has been benign in the past.
[2019-05-30 13:12] LABS: Appearance Pleural Fluid CLOUDY; Color Pleural Fluid RED; RBC Pleural Fluid (A) 70000 /uL; Source Pleural Fluid RIGHT LUNG; WBC Pleural Fluid (A) 242 /uL
[2019-05-30 13:40] LABS: Basophils, Fluid 0 %; Eosinophils, Fluid 0 %; Lymphocytes, Fluid 56 %; Mono,Macrophage,Mesothelial 39 %; Neutrophils, Fluid 5 %
--- NOTE | 2019-05-30 14:08 | Operative Report (OR) ---
DATE OF OPERATION: 05/30/2019 PREOPERATIVE DIAGNOSIS: Recurrent right pleural effusion. POSTOPERATIVE DIAGNOSIS: Recurrent right pleural effusion. PROCEDURE: Right thoracentesis. SURGEON: Agapito Srivastava MD. ANESTHESIA: Local. DESCRIPTION OF PROCEDURE: With the patient in upright position, I percussed out this large left pleural effusion. In the posterior mid axillary line at about the eighth interspace, I anesthetized the patient after draping and prepping him. After appropriate timeout was called, a 25-gauge needle was used to anesthetize the skin and subcutaneous tissues. A larger needle was then used to anesthetize the deeper tissues. We got free flowing rust-colored fluid back. Guidewire was inserted and needle removed. The pigtail catheter was slid over the guidewire and the guidewire removed. 2000 mL of rust-colored fluid was drained. He had some mild reexpansion coughing, but we stopped at this point. We did not get blood and we did not get air. I removed the catheter and the site was dry. We placed an antimicrobial dressing with tape. A chest x-ray is pending. He tolerated it well. I attest to the content of the Intraoperative Record and any orders documented therein. Any exception s are noted below.
[2019-05-30] MEDS: ATORVASTATIN 10 MG TAB PO SCH (16:31)
[2019-05-30] MEDS: METOPROLOL SUCC 25MG EXT REL TAB PO SCH (16:31)
[2019-05-30 18:26] LABS: BUN Creatinine Ratio 31.7 (10-20); Calcium 9.3 mg/dl (8.5-10.1); Creatinine Clr Calc Pharmacy 64.1 ml/min; Est GFR (African American) 88.7; Est GFR (Non-African American) 76.5; Potassium 4.2 mmol/L (3.5-5.1)
[2019-05-30] MEDS: ACETAMINOPHEN 500 MG TAB PO SCH (21:25)
--- NOTE | 2019-05-30 23:04 | Hospitalist Progress Note ---
Date of Service May 30, 2019 Assessment & Plan (1) Acute on chronic diastolic congestive heart failure: Pulmonary edema and effusions seen on cxr along with LE edema. Patient continues to be on IV lasix. Creatinine has been stable. Patient had 2 liters of fluid removed with a thoracocenthesis on 05/29. Subjectively he is feeling better, but continues to require oxygen. Last echo was 01/2018 per our records. reviewed new echo. Cont BB. Hold PO lasix. Cont lisinopril. will monitor daily labs (2) Pleural effusion: right-sided. suspect it is transudative from his CHF but will need fluid analysis for diagnosis (extensive tobacco history - need to ensure not malignant). had transudative effusion that required thoracentesis in 2018. doubt IV lasix will have any appreciable effect on it. Suspect that the effusion is one of the main reasons for his dyspnea. (3) Dyspnea on exertion: Multifactorial - baseline COPD, mod/large right-sided pleural effusion, pulmonary edema, atelectasis of right lung as seen on CTA today, etc. Incentive spirometry. Diurese. Probable thoracentesis on right. Cont home inhalers including albuterol prn. NO evidence of PE on CTA chest today. (4) Essential (primary) hypertension: Controlled. Cont home meds. 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 Cont aspirin for secondary stroke prevention. Cont AFO for right foot drop. (6) Hepatic cirrhosis: CT imaging in 01/2018 showed signs of early cirrhosis. This could be contributing to fluid overload state but doubt. Does not seem to have any appreciable ascites on exam. No evidence of hepatic encephalopathy. (7) Permanent atrial fibrillation: Controlled. Pacemaker in place. Cont beta gini. placed on eliquis, decreased asa to [address] on telemetry. (8) Aortic stenosis: moderate in 2018. repeat echo ordered to reassess valve and see if is contributing to symptoms and CHF. (9) Hyponatremia: Likely due to chronic lasix use. (10) H/O: CVA (cerebrovascular accident): x 2. noted. cont asa for secondary prevention. resumed eliquis (11) COPD (chronic obstructive pulmonary disease): see discussion above in "dyspnea" (12) GERD (gastroesophageal reflux disease): doesn't appear to be taking any meds at this time history in the EMR also lists ?Valladares's should really be on PPI if that is the case (13) BPH (benign prostatic hyperplasia): no issues cont home meds (14) Diabetes: history of such, but states that last HbA1c was near 6% and he is not taking any meds for such. 6.9 a1c, will discharge on oral meds, likely metformin. (15) DVT prophylaxis: hold eliquis resume following thoracentesis Admission and Anticipated Discharge Date Admission Date: May 27, 2019 Subjective Patient reports feeling better after thoracocenthesis. He has no new complaints at this time. Review of Systems Review of Systems: All systems reviewed & are unremarkable except as noted in HPI & below Physical Exam Physical Exam: Constitutional: + frail appearing; no acute distress Eyes: PERRL ENMT: Mouth: no oral mucosal abnormality and oral mucous membranes not dry hearing aids in place b/l Neck: trachea midline, no thyromegaly Respiratory: no respiratory distress Auscultation: improved breath sounds with bibasilar crackles. Cardiovascular: Rate/Rhythm: + irregularly irregular Heart Sounds: normal S1, normal S2 and + murmur (1/6 RUSB) Vessels: posterior tibial pulses present and dorsalis pedis pulses present; no JVD Extremities: + edema (<1+ b/l ) Gastrointestinal (Abdomen): normal bowel sounds, soft, nontender, no hepatosplenomegaly Musculoskeletal: AFO right ankle/foot Skin: no rashes, warm and dry Neurologic: + focal motor deficit (right foot drop) brisk reflexes, 3+, right arm and right leg; left arm/left leg 2+ reflexes Psychiatric: Orientation: alert, oriented to person and oriented to place Lymphatic: no cervical lymphadenopathy Results & Data Results & Data ([facility]) Vital Signs (Past 12 Hours) Vital Signs Temp Pulse Pulse Resp BP BP Pulse Ox 05/30/19 19:00 36.3 C L 59 L 20 96/52 L 96 05/30/19 15:21 66 05/30/19 15:09 37.1 C 54 L 17 104/53 L 92 05/30/19 11:26 36.4 C L 59 L 19 102/47 L 94 PG Care Time/CCT Total # of Minutes Spent Total Time Spent with Patient: Total time spent is greater than 50% in coordination of care (as documented) at patient's floor/unit and/or counseling patient: Coding Level of Care Code 99441 Subseq Hosp Care Lvl 3 Diagnoses Acute on chronic diastolic congestive heart failure I50.33 Pleural effusion J90 Dyspnea on exertion R06.00 Essential (primary) hypertension I10 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 I63.9; G81.91 Hepatic cirrhosis K74.69 Hepatic cirrhosis type: other cirrhosis Permanent atrial fibrillation I48.2 Aortic stenosis I35.0 Cardiac valve disease etiology: etiology unspecified Hyponatremia E87.1 H/O: CVA (cerebrovascular accident) Z86.73 COPD (chronic obstructive pulmonary disease) J44.9 COPD type: unspecified COPD GERD (gastroesophageal reflux disease) K21.9 Esophagitis presence: esophagitis presence not specified BPH (benign prostatic hyperplasia) N40.1; R39.11 Lower urinary tract symptom detail: urinary hesitancy Lower urinary tract symptom presence: symptoms present Diabetes E11.9 Diabetes mellitus complication status: without complication Diabetes mellitus [facility] insulin use: without termite technician use Diabetes mellitus type: type 2 DVT prophylaxis Z29.9 Time Spent (min) 35 (1) BPH (benign prostatic hyperplasia) Lower urinary tract symptom detail: urinary hesitancy Lower urinary tract s ymptom presence: symptoms present Qualified Code(s): N40.1 - Benign prostatic hyperplasia with lower urinary tract symptoms; R39.11 - Hesitancy of micturition (2) Diabetes Diabetes mellitus complication status: without complication Diabetes mellitus termite technician insulin use: without [facility] use Diabetes mellitus type: type 2 Qualified Code(s): E11.9 - Type 2 diabetes mellitus without complications (3) Aortic stenosis Cardiac valve disease etiology: etiology unspecified Qualified Code(s): I35.0 - Nonrheumatic aortic (valve) stenosis (4) Hepatic cirrhosis Hepatic cirrhosis type: other cirrhosis Qualified Code(s): K74.69 - Other cirrhosis of liver (5) COPD (chronic obstructive pulmonary disease) COPD type: unspecified COPD Qualified Code(s): J44.9 - Chronic obstructive pulmonary disease, unspecified (6) GERD (gastroesophageal reflux disease) Esophagitis presence: esophagitis presence not specified Qualified Code(s): K21.9 - Gastro-esophageal reflux disease without esophagitis
[2019-05-31] MEDS: UMECLIDINIUM BROMIDE 62.5MCG/BLISTER 7 PUFFS/INHALER INH SCH (08:16)
[2019-05-31] MEDS: FLUTICASONE/VILANTEROL 100/25MCG 14 PUFFS/INHALER INH SCH (08:16)
[2019-05-31] MEDS: FUROSEMIDE 20 MG in SYRINGE 0 ML IV SCH (08:17)
[2019-05-31] MEDS: lisinopriL 10 MG TAB PO SCH (08:19)
[2019-05-31] MEDS: POTASSIUM CHLORIDE 10 MEQ TABCR PO SCH (08:19)
[2019-05-31] MEDS: LACTOBACILLUS ACIDOPHILUS (FLORANEX) TAB PO SCH (08:19)
[2019-05-31] MEDS: MUPIROCIN 2% OINT 22 GM TUBE EXT SCH (08:19)
[2019-05-31] MEDS: CALCIUM 600MG + VIT D 400 IU TAB PO SCH (08:19)
[2019-05-31] MEDS: MULTIVITAMIN TAB PO SCH (08:19)
[2019-05-31] MEDS: SERTRALINE HCL 50 MG TABLET PO SCH (08:20)
[2019-05-31] MEDS: FINASTERIDE 5 MG TAB PO SCH (08:20)
[2019-05-31] MEDS: guaiFENesin 600 MG TABCR PO SCH (08:21)
[2019-05-31] MEDS: MAGNESIUM OXIDE 400 MG TAB PO SCH (08:21)
[2019-05-31] MEDS ORDERED: ASPIRIN 81 MG ECTAB PO SCH (09:00)
[2019-05-31] MEDS ORDERED: APIXABAN 2.5 MG TAB PO SCH (09:00)
--- NOTE | 2019-05-31 14:28 | Discharge Summary ---
Date of Service May 31, 2019 Admission HPI Per Admitting Provider 88yo male with history of stroke x 2, right-sided hemiparesis, COPD, prior heavy tobacco dependence, pacemaker status, a.fib on chronic eliquis, and chronic diastolic CHF who presents with progressive GOODRICH for several weeks. Patient is a very poor historian due to cognitive impairment and therefore all information is taken from the record as well as his who provided significant history. reports that last week EMS was summoned to the house because of dyspnea but the patient ultimately refused to go to the hospital. For weeks he has had progressive GOODRICH. He now has GOODRICH with minimal activity (Transferring from the bed to the chair or wheelchair). He was evaluated at the [place] in [place] this am and had a chest x-ray with labs. His [place] physician advised going to the hospital presumably because of his enlarging pleural effusion. The dyspnea is worst first thing in the am. He has a chronic cough "for years" and this is productive. Appetite has been normal. He has had no fevers or chills. ?mild weight gain but uncertain. He has had some LE edema and perhaps some abdominal swelling as well. Principal Diagnosis HFpEF Discharge Exam gen aao pleasant nad heent nc at mmm breathing unlabored no accessory muscles no conversational dyspnea no pallor or icterus Discharge Data Allergies Allergy/AdvReac Type Severity Reaction Status Date / Time clonidine Allergy Mild Unknown Verified 05/27/19 12:40 felodipine Allergy Mild Unknown Verified 05/27/19 12:40 Consultations 05/27/19 14:26 ED Decision to Admit Stat 05/27/19 16:40 Consult Thoracic Surgery Routine 05/31/19 12:26 [facility] [place] [facility] [place] Routine Ordered Studies 05/27/19 13:56 CT angio chest PE protocol Stat Hospital Course (1) Acute on chronic diastolic congestive heart failure: Pulmonary edema and effusions seen on cxr along with LE edema. improved w IV lasix, then improved further after thoracentesis -fortunately does not need O2 at this time -safe/stable for home, outpt f/u, [facility] [place] [facility] [place] (2) Pleural effusion: right-sided. suspect it is transudative from his CHF but will need fluid analysis for diagnosis (extensive tobacco history - need to ensure not malignant). outpt f/u Suspect that the effusion is one of the main reasons for his dyspnea. (3) Dyspnea on exertion: Multifactorial - baseline COPD, mod/large right-sided pleural effusion, pulmonary edema, atelectasis of right lung, etc. Incentive spirometry. Diuresed post thoracentesis on right. Cont home inhalers including albuterol prn. 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 Cont aspirin for secondary stroke prevention. Cont AFO for right foot drop. (6) Hepatic cirrhosis: CT imaging in 01/2018 showed signs of early cirrhosis. This could be contributing to fluid overload state but doubt. Does not seem to have any appreciable ascites on exam. No evidence of hepatic encephalopathy. (7) Permanent atrial fibrillation: Controlled. Pacemaker in place. Cont beta gini. placed on eliquis, decreased asa to 81 mg. (8) Aortic stenosis: worsening - not sure if he would be TAVR candidate due to other comorbidities but worth at least eval/conisderation w cardiology (9) Hyponatremia: Likely due to chronic lasix use. (10) H/O: CVA (cerebrovascular accident): x 2. noted. asa, eliquis (11) COPD (chronic obstructive pulmonary disease): see discussion above in "dyspnea" (12) GERD (gastroesophageal reflux disease): outpt f/u (13) BPH (benign prostatic hyperplasia): no issues cont home meds (14) Diabetes: history of such, but states that last HbA1c was near 6% and he is not taking any meds for such. 6.9 a1c, will discharge on oral meds, likely metformin. (15) DVT prophylaxis: anticoagulated during his stay (except for brief hold for thoracentesis) Total Time Total Time Spent Total Time Spent (In Minutes): <30 Discharge Plan Discharge Items Patient Disposition: Home - Home Health Services Reason For Visit: ACUTE/CHRONIC CHF,RIGHT-SIDED PLEURAL EFFUSION Discharge Diagnosis: CHF (see below) Activity: Resume your previous activity Non-emergency contact: Primary Care Provider, Surgeon and Lunch Cook Call non-emergency contact if: you have any medication questions Follow-up/Referrals: Pro,Mike Saravia MD [Primary Care Provider] - Diet: Low Sodium (2gm) Addtl Attending Provider Instructions: Congestive Heart Failure: Discharge Instructions Congestive Heart Failure essentially means your heart is able to have a "traffic jam" of fluid that backs up into your lungs. Fluid in lungs then blocks up breathing space making you feel short of breath. In your case, it mostly occurs because of a tight aortic valve (the main valve from your heart forward to the rest of your body) In the hospital, our job is to get the fluid off so that you are able to breathe better, and then get you back on track with medication and lifestyle adjustments to keep the traffic jam from happening again. Salt (Sodium) The vast majority of people admitted to the hospital with fluid back up into the lungs get there because of too much salt in their diet. The way our kidneys work: when you take a small amount of sodium, your kidneys hold onto a small amount of water. When you take a large amount of sodium, your kidneys hold onto a large amount of water. When this happens, your blood vessels get flooded, your heart gets overfilled, and the fluid backs up into your lungs. Most people know to avoid the salt shaker, but sodium is in almost anything prepackaged/prepared, as a preservative or as a flavoring agent. Most of the people we take care of who are here with congestive heart failure caused by too much sodium do not use a salt shaker at all. Get into the habit of looking at food labels, so you can see how much sodium is in the foods you eat. The most important number to look at is how much sodium is in each serving. But also notice the size of a serving. Food [employer] will frequently make a serving size so tiny that it does not look like there is much sodium per serving, but a normal person might eat 3 or 4 servings of the food and take in a lot more sodium than they realized. Keep a "budget" of how much sodium you take in in each day. Most people stay out of trouble and stay out of the hospital as long as they stay "under budget". The majority of congestive heart failure patients do well if they take less than 2000 mg of sodium a day. Because our kidneys retain water based on how much sodium they are seeing in any given moment, it is also important to stay at less than about 500 mg in any given meal. This is because even if you stayed at less than 2000 mg of sodium, but ate it all at once, your kidneys would retain fluid at a rate as though you are taking in much more sodium than you actually are. Occasionally your doctor may specifically recommend restricting even further (such as less than 1500mg per day) so if you have been told to be even stricter with sodium, please follow that advice. -Following How You Are Doing (Wet Versus Dry) Because managing congestive heart failure is an ongoing process, it is very important to learn how to follow your signs and symptoms and track how you are doing at home. This will allow you to catch problems before they become a big deal. In general, as your health care team, we look at managing congestive heart failure chronically as a balance of being "wet" (flooded with fluid) versus being "dry" (dehydrated from treatment). Wet - signs of fluid retention that would warrant further evaluation: Check your weight daily. If your weight goes up by more than 2 pounds in 1 day, it is almost certainly fluid related. This should warrant further thought, and/or a call to your doctor Follow your breathingmost of the time, early on when fluid backs up into your lungs, you will first start to notice shortness of breath when walking, or when lying flat. If you notice either of these, this should warrant further thought, and/or a call to your doctor If you notice both an increase in weight and worsening breathing, that definitely warrants getting seen as soon as possible "Dry"while the goal of managing the disease is to keep you from getting "wet, the medications can sometimes cause a degree of dehydration. Most people with congestive heart failure need frequent lab work (basic metabolic panel). Generally when there has been a change in diuretic dosing (a change in the water pill) or any other major changes, lab work should be fol lowed closely and more frequently afterwards. This is because lab work will frequently show early signs of dehydration before you start to feel bad. Frequent symptoms of being dehydrated include: feeling weak and lightheaded, having lower blood pressures, making less urine than usual, or having a very dry mouth. If you notice any of these signs/symptoms, and you are not due for lab work, it would be quite reasonable to call your doctor to see if lab work or a visit could be arranged. Heart Failure Management Checklist: Limit Salt (Sodium) Intake to 2000mg (2g) per day and 500mg (0.5g) per meal Check weight daily (in same clothes, without shoes) every morning Use the provided chart to enter your weight and salt intake for the day Are you too wet? If you gained 2lb or more - make sure to take your water pill If your breathing is not good (you are more short of breath than usual) call your doctor regardless of weight change If you gained 2lb or more and you are short of breath, see your doctor or come to the emergency room Are you too dry? If you feel weak or lightheaded, have lower blood pressures, make less urine than usual, or have a very dry mouth. Call your doctor We have referred you to the "CHF program" - a part of [facility] that's specifically built to help people with fluid management issues like this Pending Studies at Discharge: No Stand-Alone Forms: [facility] CueSongs, Smoking Cessation Medications and DC Order Prescriptions: Continued triamcinolone acetonide 0.1 % cream See Rx Instructions .ROUTE .COMPLEX Qty: 80 RF: 2 albuterol sulfate [Ventolin HFA] 90 mcg/actuation HFA aerosol inhaler 1 - 2 puff INHALATION Q4 PRN (Reason: COPD) Qty: 8 RF: 0 budesonide-formoterol [Symbicort] 160-4.5 mcg/actuation Hfa Aerosol Inhaler 2 puff INHALATION BIDM RF: 0 Eliquis 5 mg Tablet 0 mg PO BID RF: 0 furosemide [Lasix] 40 mg tablet 40 mg PO QAM RF: 0 atorvastatin 10 mg tablet 10 mg PO QDD RF: 0 potassium chloride [Klor-Con 10] 10 mEq tablet extended release 10 meq PO QAM RF: 0 lisinopril 10 mg tablet 10 mg PO QAM RF: 0 sertraline 25 mg tablet 25 mg PO QAM RF: 0 metoprolol succinate 25 mg tablet extended release 24 hr 25 mg PO QDD RF: 0 finasteride 5 mg tablet 5 mg PO QAM RF: 0 Spiriva with HandiHaler 18 mcg Capsule, W/Inhalation Device 1 cap INHALATION QAM RF: 0 multivitamin Tablet 1 tab PO QAM RF: 0 acetaminophen [Tylenol Extra Strength] 500 mg Tablet 1,000 mg PO HS RF: 0 Calcium 600 + D(3) 600 mg calcium- 200 unit Capsule 2 tab PO QAM RF: 0 Probiotic 3 billion cell Capsule 3,000 mmu cells PO DIRECTED RF: 0 mupirocin 2 % Ointment 1 applic TOPICAL BID RF: 0 magnesium oxide 400 mg magnesium Tablet 400 mg PO BID RF: 0 nitroglycerin 0.4 mg Tablet, Sublingual 0.4 mg Sublingual DIRECTED PRN (Reason: Chest Pain) RF: 0 aspirin 325 mg Tablet,Delayed Release (Dr/Ec) 325 mg PO QAM RF: 0 Discharge Orders: Discharge Order (Routine); Ordered 05/31/19 Ordered By: Shaggy Curran/Other Patient Handouts: Diabetes Type 2 Managing Admission Data Admit Date/Time: 05/27/19 15:44 Attending Provider: Shaggy Grande Admit Provider: Ruperto Bridges Primary Care Provider: Mike West Other Providers: Ruperto Bridges ; Anders López ; [employer] ; Carmelo Fabian Jennifer M. 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 I63.9; G81.91 Hepatic cirrhosis K74.69 Hepatic cirrhosis type: other cirrhosis Permanent atrial fibrillation I48.2 Aortic stenosis I35.0 Cardiac valve disease etiology: etiology unspecified Hyponatremia E87.1 H/O: CVA (cerebrovascular accident) Z86.73 COPD (chronic obstructive pulmonary disease) J44.9 COPD type: unspecified COPD GERD (gastroesophageal reflux disease) K21.9 Esophagitis presence: esophagitis presence not specified BPH (benign prostatic hyperplasia) N40.1; R39.11 Lower urinary tract symptom presence: symptoms present Lower urinary tract symptom detail: urinary hesitancy Diabetes E11.9 Diabetes mellitus type: type 2 Diabetes mellitus halfway insulin use: without adjunct faculty for medical terminology use Diabetes mellitus complication status: without complication DVT prophylaxis Z29.9
== END 2019-05-31 16:04 | disposition home health service (06) | DRG 292 ==
LOC: ED 11:55 → SUATTDRO 15:44 → 2N 15:44